=== PATIENT | female | born 1940 | race Caucasian/White ===

== ENCOUNTER → 2017-11-09 12:58 | Outpatient (CLI) | payer MEDICARE, OTHER, SELFPAY ==
[2017-11-09 14:55] LABS: Add Manual Diff / Slide Review NO; Basophils Percent Auto 1.4 % (0-2); Eosinophils Percent Auto 2.5 % (2-4); Hematocrit 43.4 % (36-46); Hemoglobin 14.7 g/dL (12.0-16.0); Lymphocytes Percent Auto 27.2 % (25-40); Mean Corpuscular HGB Conc 33.8 % (30-36); Mean Corpuscular Hemoglobin 28.2 PG (26-34); Mean Corpuscular Volume 83.5 fL (80-100); Monocytes Percent Auto 5.3 % (3-14); Neutrophils Absolute Auto 4700 /uL (3000-5900); Neutrophils Percent Auto 63.6 % (50-75); Platelet Count 210 X10^3/uL (150-400); White Blood Cell Count 7.3 X10^3/uL (4.5-11.0)
[2017-11-09 15:22] LABS: Carbon Dioxide 29 mmol/L (22-32); Chloride 100 mmol/L (98-107); HEMOLYSIS < 15 (0-50); Potassium 4.4 mmol/L (3.4-5.1); Sodium 141 mmol/L (137-145)
== END ==
PROVIDERS: Visit Provider Orthopaedic Surgery
DX: Z01.812 Encounter for preprocedural laboratory examination (principal); Z01.818 Encounter for other preprocedural examination
CPT/HCPCS: 36415; 80051; 85025; 93005; 93010

== ENCOUNTER 2017-12-15 13:45 | Outpatient (RCR) | payer MEDICARE, OTHER, SELFPAY ==
--- NOTE | 2017-11-18 09:45 | PT.OIE ---
Current Diagnoses Cervical root disorders, not elsewhere classified (11/18/17) Stiffness of unspecified joint, not elsewhere classified (11/18/17) Paresthesia of skin (11/18/17) Strain of other muscles, fascia and tendons at shoulder and upper arm level, right arm, subsequent encounter (11/18/17) Past Medical History (Last Reviewed 11/06/17 @ 17:22 by Radha Dobbins DNP, SKYLAR, SHEILA-C) Trapezius muscle strain (Acute) Neuralgia (Acute) Knee pain (Chronic) Hypertension (Chronic) Hypothyroidism (Chronic) Hypoventilation syndrome (Chronic 2018) Osteoarthritis (Chronic) Past Surgical History (Last Reviewed 11/06/17 @ 17:22 by Radha Dobbins DNP, SKYLAR, SHEILA-C) History of left knee surgery (Resolved) Provider Visit Care Team Role Provider Type Andry Ferguson MD Family Provider Physician Primary Care Provider Specialty: [facility] Address: [address] [place] [address] Email: Radha Dobbins DNP, SKYLAR, SHEILA-C Attending Provider Advanced Rice Dryer Mechanic Specialty: [facility] Address: [address] [place] [address] Email: Physical Therapy Initial Evaluation PT-OP-A Visit Information Start: 11/19/17 15:30 Freq: Status: Active Protocol: Document 11/18/17 09:45 DCW (Rec: 11/19/17 16:00 [facility] [id number]) Out-Patient Physical Therapy Visit Information Visit Information Visit Type Initial Evaluation Visit Start Time 09:45 Visit Stop Time 10:30 Total Visit Minutes 45 Visit Number 1 Number of FINANCIAL COMPLIANCE OFFICER Visits 0 Evaluation Information Evaluation Date 11/18/17 PT-OP-B Current Condition Start: 11/19/17 15:30 Freq: Status: Active Protocol: Document 11/18/17 09:45 DCW (Rec: 11/19/17 16:00 DC [id number]) Current Condition History of Current Condition Onset Date Two months Current Complaints Right shoulder numbness/pain History of Current Condition Pt is a 77 year old female presenting with a two month history of right shoulder pain and numbness. Pt reports she cannot remember any initial injury, she just began to notice her shoulder starting to go numb. Pt reports she feels her best at the beginning of the day, but as the day goes on, her trap tightens up, which increases her sensation of pain and numbness. Pt does note a prior rotator cuff tear and repair in 2003, but admits that this is a completely different pain, and I don't think that has anything to do with my current pain. Pt also notes that if she sleeps on her affected side, she feels fine, but if she sleeps on her unaffected side, she wakes up with numbness and pain. Prior Treatments and Tests Prior rotator cuff repair Treatment Goals Patient/Caregiver Goals Pt reports her goal is to decrease her numbness and shoulder pain. Prior Functional Status Baseline Function- ADL's Independent Baseline Function- Mobility Independent Current Functional Impairments (Reported) Functional Limitations- Recreation/ I do what I need to do, but Hobbies notes some mild difficulty with lifting PT-OP-C Subjective Start: 11/19/17 15:30 Freq: Status: Active Protocol: Document 11/18/17 09:45 DCW (Rec: 11/19/17 16:00 [facility] [id number]) Patient Questionnaires Quick Dash- Upper Extremity Quick Dash UE Score 52.27% Quick Dash UE Impairment 40 to 59% Impaired (Score 40- 59) OP-PT Pain Assessment Pain Assessment Grid Paper Pain Assessment Grid Completed Yes Location Right Shoulder Pain Location Details Superior shoulder Intensity 3 Scale Used Numeric (1 - 10) Description- Other Tingling - It feels like a TENS unit. PT-OP-F Manual Assessment Start: 11/19/17 15:30 Freq: Status: Active Protocol: Document 11/18/17 09:45 DCW (Rec: 11/19/17 16:00 [facility] [id number]) Manual Assessments Soft Tissue Assessment Soft Tissue Mobility Assessment Moderate tone through right upper trap, right scalenes, bilateral paraspinals Joint Mobility Assessment Joint Mobility Assessment Shoulder joint assessment entirely negative, no loss of strength or ROM, however cervical spine displays limited ROM, weakness, and increased symptoms with compression PT-OP-J Posture/Palpation/Skin Start: 11/19/17 15:30 Freq: Status: Active Protocol: Document 11/18/17 09:45 DCW (Rec: 11/19/17 16:00 DCW [id number]) Posture Evaluation Position Sitting Head/C-Spine Posture Forward Head Shoulder Posture (L) Rounded (R) Rounded Comments Posture Comments Mild forward head/rounded shoulders Palpation Assessment Location Three Palpation Location Bilateral scervical paraspinals Palpation Findings Soft Tissue Tightness Spasm Tenderness Two Palpation Location Right Scalenes Palpation Findings Soft Tissue Tightness Spasm Tenderness One Palpation Location Right Upper Trap Palpation Findings Soft Tissue Tightness Spasm Tenderness PT-OP-K Range of Motion Start: 11/19/17 15:30 Freq: Status: Active Protocol: Document 11/18/17 09:45 DCW (Rec: 11/19/17 16:00 DCW [id number]) Cervical Spine Range of Motion Cervical Spine Active Degrees Testing Position Sitting Flexion 65 Extension 40 Rotation Left 60 Rotation Right 70 Lateral Flexion Left 35 Lateral Flexion Right 32 ROM Limitations Bony Restriction Pain Comments Right rotation causes increased tingling, hurts all the way to my shoulder. Extension causes pulling and tightness. Shoulder Goniometric Range of Motion Shoulder Measured in Degrees Right Active Shoulder ROM WFL Yes PT-OP-L Special Tests Start: 11/19/17 15:30 Freq: Status: Active Protocol: Document 11/18/17 09:45 DCW (Rec: 11/19/17 16:00 DCW [id number]) Special Tests Cervical Spine Special Tests Other- 1 Test Results Compression with R rotation - increased symptoms Alar Ligament Test Results Negative Traction Test Results Relieves symptoms Slump Test Results Negative Foraminal Compression Test Results Increased symptoms Shoulder Special Tests Lift-Off Rotator Cuff Test Results Negative Empty Can Test Results Negative Belly Press Test Results Negative Drop Arm Rotator Cuff Test Results Negative PT-OP-Q Treatments Start: 11/19/17 15:30 Freq: Status: Active Protocol: Document 11/18/17 09:45 DCW (Rec: 11/19/17 16:00 DCW [id number]) Therapeutic Exercises Sitting Exercises 1 Sitting Exercise Name Upper Trap stretch Side right PT-OP-T Assessment and Plan Start: 11/19/17 15:30 Freq: Status: Active Protocol: Document 11/18/17 09:45 DCW (Rec: 11/19/17 16:00 DCW [id number]) Physical Therapy Assessment Rehab Potential Rehabilitation Potential Excellent Evaluation Complexity Number of Personal Factors/Comorbidities 1-2 Number of Body Systems Impaired 3 Clinical Presentation at Evaluation Stable Impairments Impairments Pain Posture ROM Soft Tissue Mobility Strength Tone Goals Four Impairment Muscle tone Alf Goal (LTG) Pt to exhibit mild tone in right upper trap, right scalenes, and bilateral cervical paraspinals LTG Duration 01/18/18 Three Impairment Sleep disturbance Short Term Goal (STG) Pt to sleep on unaffected side with no increased symptoms STG Duration 12/19/17 Two Impairment Limited cervical ROM, which causes increased symptoms in ext and R rot Short Term Goal (STG) Pain-free cervical ROM STG Duration 12/19/17 One Impairment Pt does not have an appropriate home exercise program Short Term Goal (STG) Pt to be independent and compliant with HEP STG Duration 12/19/17 Assessment Summary Assessment Pt presents with signs and symptoms of pain and numbness along her C4 dermatome pattern , consistent with a cervical impingement of C4. Pt's shoulder examination is negative, but pt reports increased symptoms with cervical compression, rotation , and extension, and relief with cervical traction. Pt should benefit from skilled therapy focusing on decreased muscle tone, improved cervical ROM, cervical traction, and cervical strengthening. Physical Therapy Plan Frequency and Duration Frequency of Treatment 2x/Week Duration of Treatment 10 weeks Plan of Care Start Date 11/18/17 Plan of Care End Date 01/27/18 Therapeutic Interventions Therapeutic Interventions Aquatic Therapy Home Exercise Program Joint Mobilizations Manual Therapy Patient/Caregiver Education Self-Care/Home Management Soft Tissue Mobilization Therapeutic Activities Therapeutic Exercises Modalities Cold Pack/Ice Massage Electric Stimulation Hot Packs Traction- Mechanical Ultrasound Next Visit Focus/Plan Next Note Type Treatment Note Next Visit Plan STM, Cervical traction, cervical strengthening
--- NOTE | 2017-11-18 09:45 | PT.OPPOC ---
Current Diagnoses Cervical root disorders, not elsewhere classified (11/18/17) Stiffness of unspecified joint, not elsewhere classified (11/18/17) Paresthesia of skin (11/18/17) Strain of other muscles, fascia and tendons at shoulder and upper arm level, right arm, subsequent encounter (11/18/17) Provider Visit Care Team Role Provider Type Andry Ferguson MD Family Provider Physician Primary Care Provider Specialty: [facility] Address: [address] [place] [address], [place], [address] Email: Radha Dobbins DNP, ANP, REPAIRER MAINTENANCE BUILDING-C Attending Provider Advanced Loader [employer] Dies Specialty: [facility] Address: [address] [place] [address], [id number] Email: Plan Of Care PT-OP-T Assessment and Plan Start: 11/19/17 15:30 Freq: Status: Active Protocol: Document 11/18/17 09:45 DCW (Rec: 11/19/17 16:00 DCW [id number]) Physical Therapy Assessment Rehab Potential Rehabilitation Potential Excellent Evaluation Complexity Number of Personal Factors/Comorbidities 1-2 Number of Body Systems Impaired 3 Clinical Presentation at Evaluation Stable Impairments Impairments Pain Posture ROM Soft Tissue Mobility Strength Tone Goals Four Impairment Muscle tone Detention Goal (LTG) Pt to exhibit mild tone in right upper trap, right scalenes, and bilateral cervical paraspinals LTG Duration 01/18/18 Three Impairment Sleep disturbance Short Term Goal (STG) Pt to sleep on unaffected side with no increased symptoms STG Duration 12/19/17 Two Impairment Limited cervical ROM, which causes increased symptoms in ext and R rot Short Term Goal (STG) Pain-free cervical ROM STG Duration 12/19/17 One Impairment Pt does not have an appropriate home exercise program Short Term Goal (STG) Pt to be independent and compliant with HEP STG Duration 12/19/17 Assessment Summary Assessment Pt presents with signs and symptoms of pain and numbness along her C4 dermatome pattern , consistent with a cervical impingement of C4. Pt's shoulder examination is negative, but pt reports increased symptoms with cervical compression, rotation , and extension, and relief with cervical traction. Pt should benefit from skilled therapy focusing on decreased muscle tone, improved cervical ROM, cervical traction, and cervical strengthening. Physical Therapy Plan Frequency and Duration Frequency of Treatment 2x/Week Duration of Treatment 10 weeks Plan of Care Start Date 11/18/17 Plan of Care End Date 01/27/18 Therapeutic Interventions Therapeutic Interventions Aquatic Therapy Home Exercise Program Joint Mobilizations Manual Therapy Patient/Caregiver Education Self-Care/Home Management Soft Tissue Mobilization Therapeutic Activities Therapeutic Exercises Modalities Cold Pack/Ice Massage Electric Stimulation Hot Packs Traction- Mechanical Ultrasound Next Visit Focus/Plan Next Note Type Treatment Note Next Visit Plan STM, Cervical traction, cervical strengthening Plan of Care Dates Plan of Care Start Date 11/18/17 Plan of Care End Date 01/27/18 Please Sign and Return: I have reviewed this Plan of Care and certify that the skilled therapy services above are required to meet the patient?s needs. Physician Signature Date Printed Name and Credentials Clinical Instructor Signature Printed Name and Credentials
--- NOTE | 2017-11-19 16:00 | PT.OIE ---
Current Diagnoses Cervical root disorders, not elsewhere classified (11/18/17) Stiffness of unspecified joint, not elsewhere classified (11/18/17) Paresthesia of skin (11/18/17) Strain of other muscles, fascia and tendons at shoulder and upper arm level, right arm, subsequent encounter (11/18/17) Past Medical History (Last Reviewed 11/06/17 @ 17:22 by Radha Dobbins DNP, SKYLAR, SHEILA-C) Trapezius muscle strain (Acute) Neuralgia (Acute) Knee pain (Chronic) Hypertension (Chronic) Hypothyroidism (Chronic) Hypoventilation syndrome (Chronic 2018) Osteoarthritis (Chronic) Past Surgical History (Last Reviewed 11/06/17 @ 17:22 by Radha Dobbins DNP, SKYLAR, SHEILA-C) History of left knee surgery (Resolved) Provider Visit Care Team Role Provider Type Andry Ferguson MD Family Provider Physician Primary Care Provider Specialty: [facility] Address: [address] [place] [address] Email: Radha Dobbins DNP, SKYLAR, SHEILA-C Attending Provider Advanced Cement Conveyor Operator Specialty: [facility] Address: [address] [place] [address] Email: Physical Therapy Initial Evaluation PT-OP-A Visit Information Start: 11/19/17 15:30 Freq: Status: Active Protocol: Document 11/18/17 09:45 DCW (Rec: 11/19/17 16:00 [facility] [id number]) Out-Patient Physical Therapy Visit Information Visit Information Visit Type Initial Evaluation Visit Start Time 09:45 Visit Stop Time 10:30 Total Visit Minutes 45 Visit Number 1 Number of BUTANE COMPRESSOR OPERATOR Visits 0 Evaluation Information Evaluation Date 11/18/17 PT-OP-B Current Condition Start: 11/19/17 15:30 Freq: Status: Active Protocol: Document 11/18/17 09:45 DCW (Rec: 11/19/17 16:00 DC [id number]) Current Condition History of Current Condition Onset Date Two months Current Complaints Right shoulder numbness/pain History of Current Condition Pt is a 77 year old female presenting with a two month history of right shoulder pain and numbness. Pt reports she cannot remember any initial injury, she just began to notice her shoulder starting to go numb. Pt reports she feels her best at the beginning of the day, but as the day goes on, her trap tightens up, which increases her sensation of pain and numbness. Pt does note a prior rotator cuff tear and repair in 2003, but admits that this is a completely different pain, and I don't think that has anything to do with my current pain. Pt also notes that if she sleeps on her affected side, she feels fine, but if she sleeps on her unaffected side, she wakes up with numbness and pain. Prior Treatments and Tests Prior rotator cuff repair Treatment Goals Patient/Caregiver Goals Pt reports her goal is to decrease her numbness and shoulder pain. Prior Functional Status Baseline Function- ADL's Independent Baseline Function- Mobility Independent Current Functional Impairments (Reported) Functional Limitations- Recreation/ I do what I need to do, but Hobbies notes some mild difficulty with lifting PT-OP-C Subjective Start: 11/19/17 15:30 Freq: Status: Active Protocol: Document 11/18/17 09:45 DCW (Rec: 11/19/17 16:00 [facility] [id number]) Patient Questionnaires Quick Dash- Upper Extremity Quick Dash UE Score 52.27% Quick Dash UE Impairment 40 to 59% Impaired (Score 40- 59) OP-PT Pain Assessment Pain Assessment Grid Paper Pain Assessment Grid Completed Yes Location Right Shoulder Pain Location Details Superior shoulder Intensity 3 Scale Used Numeric (1 - 10) Description- Other Tingling - It feels like a TENS unit. PT-OP-F Manual Assessment Start: 11/19/17 15:30 Freq: Status: Active Protocol: Document 11/18/17 09:45 DCW (Rec: 11/19/17 16:00 [facility] [id number]) Manual Assessments Soft Tissue Assessment Soft Tissue Mobility Assessment Moderate tone through right upper trap, right scalenes, bilateral paraspinals Joint Mobility Assessment Joint Mobility Assessment Shoulder joint assessment entirely negative, no loss of strength or ROM, however cervical spine displays limited ROM, weakness, and increased symptoms with compression PT-OP-J Posture/Palpation/Skin Start: 11/19/17 15:30 Freq: Status: Active Protocol: Document 11/18/17 09:45 DCW (Rec: 11/19/17 16:00 DCW [id number]) Posture Evaluation Position Sitting Head/C-Spine Posture Forward Head Shoulder Posture (L) Rounded (R) Rounded Comments Posture Comments Mild forward head/rounded shoulders Palpation Assessment Location Three Palpation Location Bilateral scervical paraspinals Palpation Findings Soft Tissue Tightness Spasm Tenderness Two Palpation Location Right Scalenes Palpation Findings Soft Tissue Tightness Spasm Tenderness One Palpation Location Right Upper Trap Palpation Findings Soft Tissue Tightness Spasm Tenderness PT-OP-K Range of Motion Start: 11/19/17 15:30 Freq: Status: Active Protocol: Document 11/18/17 09:45 DCW (Rec: 11/19/17 16:00 DCW [id number]) Cervical Spine Range of Motion Cervical Spine Active Degrees Testing Position Sitting Flexion 65 Extension 40 Rotation Left 60 Rotation Right 70 Lateral Flexion Left 35 Lateral Flexion Right 32 ROM Limitations Bony Restriction Pain Comments Right rotation causes increased tingling, hurts all the way to my shoulder. Extension causes pulling and tightness. Shoulder Goniometric Range of Motion Shoulder Measured in Degrees Right Active Shoulder ROM WFL Yes PT-OP-L Special Tests Start: 11/19/17 15:30 Freq: Status: Active Protocol: Document 11/18/17 09:45 DCW (Rec: 11/19/17 16:00 DCW [id number]) Special Tests Cervical Spine Special Tests Other- 1 Test Results Compression with R rotation - increased symptoms Alar Ligament Test Results Negative Traction Test Results Relieves symptoms Slump Test Results Negative Foraminal Compression Test Results Increased symptoms Shoulder Special Tests Lift-Off Rotator Cuff Test Results Negative Empty Can Test Results Negative Belly Press Test Results Negative Drop Arm Rotator Cuff Test Results Negative PT-OP-Q Treatments Start: 11/19/17 15:30 Freq: Status: Active Protocol: Document 11/18/17 09:45 DCW (Rec: 11/19/17 16:00 DCW [id number]) Therapeutic Exercises Sitting Exercises 1 Sitting Exercise Name Upper Trap stretch Side right PT-OP-T Assessment and Plan Start: 11/19/17 15:30 Freq: Status: Active Protocol: Document 11/18/17 09:45 DCW (Rec: 11/19/17 16:00 DCW [id number]) Physical Therapy Assessment Rehab Potential Rehabilitation Potential Excellent Evaluation Complexity Number of Personal Factors/Comorbidities 1-2 Number of Body Systems Impaired 3 Clinical Presentation at Evaluation Stable Impairments Impairments Pain Posture ROM Soft Tissue Mobility Strength Tone Goals Four Impairment Muscle tone Correction Goal (LTG) Pt to exhibit mild tone in right upper trap, right scalenes, and bilateral cervical paraspinals LTG Duration 01/18/18 Three Impairment Sleep disturbance Short Term Goal (STG) Pt to sleep on unaffected side with no increased symptoms STG Duration 12/19/17 Two Impairment Limited cervical ROM, which causes increased symptoms in ext and R rot Short Term Goal (STG) Pain-free cervical ROM STG Duration 12/19/17 One Impairment Pt does not have an appropriate home exercise program Short Term Goal (STG) Pt to be independent and compliant with HEP STG Duration 12/19/17 Assessment Summary Assessment Pt presents with signs and symptoms of pain and numbness along her C4 dermatome pattern , consistent with a cervical impingement of C4. Pt's shoulder examination is negative, but pt reports increased symptoms with cervical compression, rotation , and extension, and relief with cervical traction. Pt should benefit from skilled therapy focusing on decreased muscle tone, improved cervical ROM, cervical traction, and cervical strengthening. Physical Therapy Plan Frequency and Duration Frequency of Treatment 2x/Week Duration of Treatment 10 weeks Plan of Care Start Date 11/18/17 Plan of Care End Date 01/27/18 Therapeutic Interventions Therapeutic Interventions Aquatic Therapy Home Exercise Program Joint Mobilizations Manual Therapy Patient/Caregiver Education Self-Care/Home Management Soft Tissue Mobilization Therapeutic Activities Therapeutic Exercises Modalities Cold Pack/Ice Massage Electric Stimulation Hot Packs Traction- Mechanical Ultrasound Next Visit Focus/Plan Next Note Type Treatment Note Next Visit Plan STM, Cervical traction, cervical strengthening
--- NOTE | 2017-11-24 14:40 | PT.OTN ---
Current Diagnoses Strain of other muscles, fascia and tendons at shoulder and upper arm level, right arm, initial encounter (11/24/17) Physical Therapy Treatment Note PT-OP-A Visit Information Start: 11/19/17 15:30 Freq: Status: Active Protocol: Document 11/24/17 12:00 DCW (Rec: 11/24/17 14:40 DC [id number]) Out-Patient Physical Therapy Visit Information Visit Information Visit Type Treatment Note Visit Start Time 12:00 Visit Stop Time 12:45 Total Visit Minutes 45 Visit Number 2 Evaluation Information Evaluation Date 11/18/17 PT-OP-B Current Condition Start: 11/19/17 15:30 Freq: Status: Active Protocol: Document 11/18/17 09:45 DCW (Rec: 11/19/17 16:00 DCW [id number]) Current Condition History of Current Condition Onset Date Two months Current Complaints Right shoulder numbness/pain History of Current Condition Pt is a 77 year old female presenting with a two month history of right shoulder pain and numbness. Pt reports she cannot remember any initial injury, she just began to notice her shoulder starting to go numb. Pt reports she feels her best at the beginning of the day, but as the day goes on, her trap tightens up, which increases her sensation of pain and numbness. Pt does note a prior rotator cuff tear and repair in 2003, but admits that this is a completely different pain, and I don't think that has anything to do with my current pain. Pt also notes that if she sleeps on her affected side, she feels fine, but if she sleeps on her unaffected side, she wakes up with numbness and pain. Prior Treatments and Tests Prior rotator cuff repair Treatment Goals Patient/Caregiver Goals Pt reports her goal is to decrease her numbness and shoulder pain. Prior Functional Status Baseline Function- ADL's Independent Baseline Function- Mobility Independent Current Functional Impairments (Reported) Functional Limitations- Recreation/ I do what I need to do, but Hobbies notes some mild difficulty with lifting PT-OP-C Subjective Start: 11/19/17 15:30 Freq: Status: Active Protocol: Document 11/24/17 12:00 DCW (Rec: 11/24/17 14:40 DCW [id number]) OP-PT Subjective Patient Comments Patient Comments I've been doing the stretching, and I think it's helping. PT-OP-F Manual Assessment Start: 11/19/17 15:30 Freq: Status: Active Protocol: Document 11/18/17 09:45 DCW (Rec: 11/19/17 16:00 DCW [id number]) Manual Assessments Soft Tissue Assessment Soft Tissue Mobility Assessment Moderate tone through right upper trap, right scalenes, bilateral paraspinals Joint Mobility Assessment Joint Mobility Assessment Shoulder joint assessment entirely negative, no loss of strength or ROM, however cervical spine displays limited ROM, weakness, and increased symptoms with compression PT-OP-J Posture/Palpation/Skin Start: 11/19/17 15:30 Freq: Status: Active Protocol: Document 11/18/17 09:45 DCW (Rec: 11/19/17 16:00 DCW [id number]) Posture Evaluation Position Sitting Head/C-Spine Posture Forward Head Shoulder Posture (L) Rounded (R) Rounded Comments Posture Comments Mild forward head/rounded shoulders Palpation Assessment Location Three Palpation Location Bilateral scervical paraspinals Palpation Findings Soft Tissue Tightness Spasm Tenderness Two Palpation Location Right Scalenes Palpation Findings Soft Tissue Tightness Spasm Tenderness One Palpation Location Right Upper Trap Palpation Findings Soft Tissue Tightness Spasm Tenderness PT-OP-K Range of Motion Start: 11/19/17 15:30 Freq: Status: Active Protocol: Document 11/18/17 09:45 DCW (Rec: 11/19/17 16:00 DCW [id number]) Cervical Spine Range of Motion Cervical Spine Active Degrees Testing Position Sitting Flexion 65 Extension 40 Rotation Left 60 Rotation Right 70 Lateral Flexion Left 35 Lateral Flexion Right 32 ROM Limitations Bony Restriction Pain Comments Right rotation causes increased tingling, hurts all the way to my shoulder. Extension causes pulling and tightness. Shoulder Goniometric Range of Motion Shoulder Measured in Degrees Right Active Shoulder ROM WFL Yes PT-OP-L Special Tests Start: 11/19/17 15:30 Freq: Status: Active Protocol: Document 11/18/17 09:45 DCW (Rec: 11/19/17 16:00 DCW [id number]) Special Tests Cervical Spine Special Tests Other- 1 Test Results Compression with R rotation - increased symptoms Alar Ligament Test Results Negative Traction Test Results Relieves symptoms Slump Test Results Negative Foraminal Compression Test Results Increased symptoms Shoulder Special Tests Lift-Off Rotator Cuff Test Results Negative Empty Can Test Results Negative Belly Press Test Results Negative Drop Arm Rotator Cuff Test Results Negative PT-OP-Q Treatments Start: 11/19/17 15:30 Freq: Status: Active Protocol: Document 11/24/17 12:00 DCW (Rec: 11/24/17 14:40 [facility] [id number]) Therapeutic Exercises Supine Exercises 1 Supine Exercise Name Scalene stretch Side right Resistance Passive Sitting Exercises 1 Sitting Exercise Name Upper Trap stretch Side right Manual Therapy Treatment Soft Tissue Mobilization 3 Body Location Suboccipitals Mobilization Type Sustained Pressure Intensity/Depth Superficial Body Position Hooklying 2 Body Location Scalenes Mobilization Type Sustained Pressure Trigger Point Release Intensity/Depth Moderate Body Position Hooklying 1 Body Location Upper Trap Mobilization Type Myofascial Release Strain/Counterstrain Strumming Sustained Pressure Trigger Point Release Intensity/Depth Moderate Body Position Hooklying Manual Traction Cervical Body Position Supine PT-OP-R Modalities Start: 11/19/17 15:30 Freq: Status: Active Protocol: Document 11/24/17 12:00 DCW (Rec: 11/24/17 14:40 [facility] [id number]) Spinal Traction Traction Treatment Cervical Method Mechanical Static Patient Position Hooklying Force Applied (Pounds) 20 Duration of Treatment (Minutes) 10 Traction Treatment Comment Pain decreased from 6/10 to a 0.5/10 PT-OP-T Assessment and Plan Start: 11/19/17 15:30 Freq: Status: Active Protocol: Document 11/24/17 12:00 DCW (Rec: 11/24/17 14:40 [facility] [id number]) Physical Therapy Assessment Impairments Impairments Pain Posture ROM Soft Tissue Mobility Strength Tone Goals Four Impairment Muscle tone Manager Ethics Goal (LTG) Pt to exhibit mild tone in right upper trap, right scalenes, and bilateral cervical paraspinals LTG Duration 01/18/18 Three Impairment Sleep disturbance Short Term Goal (STG) Pt to sleep on unaffected side with no increased symptoms STG Duration 12/19/17 Two Impairment Limited cervical ROM, which causes increased symptoms in ext and R rot Short Term Goal (STG) Pain-free cervical ROM STG Duration 12/19/17 One Impairment Pt does not have an appropriate home exercise program Short Term Goal (STG) Pt to be independent and compliant with HEP STG Duration 12/19/17 Assessment Summary Assessment Pt tolerated mechanical traction very well, felt much better upon sitting up following her appointment. Continued improvement with use may indicate pt is a good candidate for a home traction unit. Physical Therapy Plan Frequency and Duration Frequency of Treatment 2x/Week Duration of Treatment 10 weeks Plan of Care Start Date 11/18/17 Plan of Care End Date 01/27/18 Therapeutic Interventions Therapeutic Interventions Aquatic Therapy Home Exercise Program Joint Mobilizations Manual Therapy Patient/Caregiver Education Self-Care/Home Management Soft Tissue Mobilization Therapeutic Activities Therapeutic Exercises Modalities Cold Pack/Ice Massage Electric Stimulation Hot Packs Traction- Mechanical Ultrasound Other Referrals/Consults Referrals/Consults Recommended Possible referral for cervical traction Next Visit Focus/Plan Next Note Type Treatment Note Next Visit Plan STM, Cervical traction, cervical strengthening
--- NOTE | 2017-11-27 12:37 | PT.OTN ---
Current Diagnoses Strain of other muscles, fascia and tendons at shoulder and upper arm level, right arm, initial encounter (11/27/17) Physical Therapy Treatment Note PT-OP-A Visit Information Start: 11/19/17 15:30 Freq: Status: Active Protocol: Document 11/27/17 12:10 DCW (Rec: 11/27/17 12:36 DCW [id number]) Out-Patient Physical Therapy Visit Information Visit Information Visit Type Treatment Note Visit Note Pt arrived 10 minutes late Visit Start Time 12:10 Visit Stop Time 12:45 Total Visit Minutes 35 Visit Number 3 Evaluation Information Evaluation Date 11/18/17 PT-OP-B Current Condition Start: 11/19/17 15:30 Freq: Status: Active Protocol: Document 11/18/17 09:45 DCW (Rec: 11/19/17 16:00 DCW [id number]) Current Condition History of Current Condition Onset Date Two months Current Complaints Right shoulder numbness/pain History of Current Condition Pt is a 77 year old female presenting with a two month history of right shoulder pain and numbness. Pt reports she cannot remember any initial injury, she just began to notice her shoulder starting to go numb. Pt reports she feels her best at the beginning of the day, but as the day goes on, her trap tightens up, which increases her sensation of pain and numbness. Pt does note a prior rotator cuff tear and repair in 2003, but admits that this is a completely different pain, and I don't think that has anything to do with my current pain. Pt also notes that if she sleeps on her affected side, she feels fine, but if she sleeps on her unaffected side, she wakes up with numbness and pain. Prior Treatments and Tests Prior rotator cuff repair Treatment Goals Patient/Caregiver Goals Pt reports her goal is to decrease her numbness and shoulder pain. Prior Functional Status Baseline Function- ADL's Independent Baseline Function- Mobility Independent Current Functional Impairments (Reported) Functional Limitations- Recreation/ I do what I need to do, but Hobbies notes some mild difficulty with lifting PT-OP-C Subjective Start: 11/19/17 15:30 Freq: Status: Active Protocol: Document 11/27/17 12:10 DCW (Rec: 11/27/17 12:36 DCW [id number]) OP-PT Subjective Patient Comments Patient Comments I think my neck is better. I didn't wake up with pain, and I haven't had as much tingling recently. PT-OP-F Manual Assessment Start: 11/19/17 15:30 Freq: Status: Active Protocol: Document 11/18/17 09:45 DCW (Rec: 11/19/17 16:00 DCW [id number]) Manual Assessments Soft Tissue Assessment Soft Tissue Mobility Assessment Moderate tone through right upper trap, right scalenes, bilateral paraspinals Joint Mobility Assessment Joint Mobility Assessment Shoulder joint assessment entirely negative, no loss of strength or ROM, however cervical spine displays limited ROM, weakness, and increased symptoms with compression PT-OP-J Posture/Palpation/Skin Start: 11/19/17 15:30 Freq: Status: Active Protocol: Document 11/18/17 09:45 DCW (Rec: 11/19/17 16:00 DCW [id number]) Posture Evaluation Position Sitting Head/C-Spine Posture Forward Head Shoulder Posture (L) Rounded (R) Rounded Comments Posture Comments Mild forward head/rounded shoulders Palpation Assessment Location Three Palpation Location Bilateral scervical paraspinals Palpation Findings Soft Tissue Tightness Spasm Tenderness Two Palpation Location Right Scalenes Palpation Findings Soft Tissue Tightness Spasm Tenderness One Palpation Location Right Upper Trap Palpation Findings Soft Tissue Tightness Spasm Tenderness PT-OP-K Range of Motion Start: 11/19/17 15:30 Freq: Status: Active Protocol: Document 11/18/17 09:45 DCW (Rec: 11/19/17 16:00 DCW [id number]) Cervical Spine Range of Motion Cervical Spine Active Degrees Testing Position Sitting Flexion 65 Extension 40 Rotation Left 60 Rotation Right 70 Lateral Flexion Left 35 Lateral Flexion Right 32 ROM Limitations Bony Restriction Pain Comments Right rotation causes increased tingling, hurts all the way to my shoulder. Extension causes pulling and tightness. Shoulder Goniometric Range of Motion Shoulder Measured in Degrees Right Active Shoulder ROM WFL Yes PT-OP-L Special Tests Start: 11/19/17 15:30 Freq: Status: Active Protocol: Document 11/18/17 09:45 DCW (Rec: 11/19/17 16:00 DCW [id number]) Special Tests Cervical Spine Special Tests Other- 1 Test Results Compression with R rotation - increased symptoms Alar Ligament Test Results Negative Traction Test Results Relieves symptoms Slump Test Results Negative Foraminal Compression Test Results Increased symptoms Shoulder Special Tests Lift-Off Rotator Cuff Test Results Negative Empty Can Test Results Negative Belly Press Test Results Negative Drop Arm Rotator Cuff Test Results Negative PT-OP-Q Treatments Start: 11/19/17 15:30 Freq: Status: Active Protocol: Document 11/27/17 12:10 DCW (Rec: 11/27/17 12:36 DCW [id number]) Manual Therapy Treatment Soft Tissue Mobilization 3 Body Location Suboccipitals Mobilization Type Sustained Pressure Intensity/Depth Superficial Body Position Hooklying 2 Body Location Scalenes Mobilization Type Sustained Pressure Trigger Point Release Intensity/Depth Moderate Body Position Hooklying 1 Body Location Upper Trap Mobilization Type Myofascial Release Strain/Counterstrain Strumming Sustained Pressure Trigger Point Release Intensity/Depth Moderate Body Position Hooklying Manual Traction Cervical Body Position Supine PT-OP-R Modalities Start: 11/19/17 15:30 Freq: Status: Active Protocol: Document 11/27/17 12:10 DCW (Rec: 11/27/17 12:36 DCW [id number]) Spinal Traction Traction Treatment Cervical Method Mechanical Static Patient Position Hooklying Force Applied (Pounds) 20 Duration of Treatment (Minutes) 10 PT-OP-T Assessment and Plan Start: 11/19/17 15:30 Freq: Status: Active Protocol: Document 11/27/17 12:10 DCW (Rec: 11/27/17 12:36 DCW [id number]) Physical Therapy Assessment Impairments Impairments Pain Posture ROM Soft Tissue Mobility Strength Tone Goals Four Impairment 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) Pt to exhibit mild tone in right upper trap, right scalenes, and bilateral cervical paraspinals LTG Duration 01/18/18 Three Impairment Sleep disturbance Short Term Goal (STG) Pt to sleep on unaffected side with no increased symptoms STG Duration 12/19/17 Two Impairment Limited cervical ROM, which causes increased symptoms in ext and R rot Short Term Goal (STG) Pain-free cervical ROM STG Duration 12/19/17 One Impairment Pt does not have an appropriate home exercise program Short Term Goal (STG) Pt to be independent and compliant with HEP STG Duration 12/19/17 Assessment Summary Assessment Pt making great progress so far, much reduced pain and radicular symptoms Physical Therapy Plan Frequency and Duration Frequency of Treatment 2x/Week Duration of Treatment 10 weeks Plan of Care Start Date 11/18/17 Plan of Care End Date 01/27/18 Therapeutic Interventions Therapeutic Interventions Aquatic Therapy Home Exercise Program Joint Mobilizations Manual Therapy Patient/Caregiver Education Self-Care/Home Management Soft Tissue Mobilization Therapeutic Activities Therapeutic Exercises Modalities Cold Pack/Ice Massage Electric Stimulation Hot Packs Traction- Mechanical Ultrasound Other Referrals/Consults Referrals/Consults Recommended Possible referral for cervical traction Next Visit Focus/Plan Next Note Type Treatment Note Next Visit Plan STM, Cervical traction, cervical strengthening
--- NOTE | 2017-12-01 12:34 | PT.OTN ---
Current Diagnoses Strain of other muscles, fascia and tendons at shoulder and upper arm level, right arm, initial encounter (12/01/17) Physical Therapy Treatment Note PT-OP-A Visit Information Start: 11/19/17 15:30 Freq: Status: Active Protocol: Document 12/01/17 12:00 DCW (Rec: 12/01/17 12:34 DCW [id number]) Out-Patient Physical Therapy Visit Information Visit Information Visit Type Treatment Note Visit Start Time 12:00 Visit Stop Time 12:45 Total Visit Minutes 45 Visit Number 4 Evaluation Information Evaluation Date 11/18/17 PT-OP-B Current Condition Start: 11/19/17 15:30 Freq: Status: Active Protocol: Document 11/18/17 09:45 DCW (Rec: 11/19/17 16:00 DCW [id number]) Current Condition History of Current Condition Onset Date Two months Current Complaints Right shoulder numbness/pain History of Current Condition Pt is a 77 year old female presenting with a two month history of right shoulder pain and numbness. Pt reports she cannot remember any initial injury, she just began to notice her shoulder starting to go numb. Pt reports she feels her best at the beginning of the day, but as the day goes on, her trap tightens up, which increases her sensation of pain and numbness. Pt does note a prior rotator cuff tear and repair in 2003, but admits that this is a completely different pain, and I don't think that has anything to do with my current pain. Pt also notes that if she sleeps on her affected side, she feels fine, but if she sleeps on her unaffected side, she wakes up with numbness and pain. Prior Treatments and Tests Prior rotator cuff repair Treatment Goals Patient/Caregiver Goals Pt reports her goal is to decrease her numbness and shoulder pain. Prior Functional Status Baseline Function- ADL's Independent Baseline Function- Mobility Independent Current Functional Impairments (Reported) Functional Limitations- Recreation/ I do what I need to do, but Hobbies notes some mild difficulty with lifting PT-OP-C Subjective Start: 11/19/17 15:30 Freq: Status: Active Protocol: Document 12/01/17 12:00 DCW (Rec: 12/01/17 12:34 DCW [id number]) OP-PT Subjective Patient Comments Patient Comments `My neck pain is getting better, and it's less tight, and the tingling is less frequent. PT-OP-F Manual Assessment Start: 11/19/17 15:30 Freq: Status: Active Protocol: Document 11/18/17 09:45 DCW (Rec: 11/19/17 16:00 DCW [id number]) Manual Assessments Soft Tissue Assessment Soft Tissue Mobility Assessment Moderate tone through right upper trap, right scalenes, bilateral paraspinals Joint Mobility Assessment Joint Mobility Assessment Shoulder joint assessment entirely negative, no loss of strength or ROM, however cervical spine displays limited ROM, weakness, and increased symptoms with compression PT-OP-J Posture/Palpation/Skin Start: 11/19/17 15:30 Freq: Status: Active Protocol: Document 11/18/17 09:45 DCW (Rec: 11/19/17 16:00 DCW [id number]) Posture Evaluation Position Sitting Head/C-Spine Posture Forward Head Shoulder Posture (L) Rounded (R) Rounded Comments Posture Comments Mild forward head/rounded shoulders Palpation Assessment Location Three Palpation Location Bilateral scervical paraspinals Palpation Findings Soft Tissue Tightness Spasm Tenderness Two Palpation Location Right Scalenes Palpation Findings Soft Tissue Tightness Spasm Tenderness One Palpation Location Right Upper Trap Palpation Findings Soft Tissue Tightness Spasm Tenderness PT-OP-K Range of Motion Start: 11/19/17 15:30 Freq: Status: Active Protocol: Document 11/18/17 09:45 DCW (Rec: 11/19/17 16:00 DCW [id number]) Cervical Spine Range of Motion Cervical Spine Active Degrees Testing Position Sitting Flexion 65 Extension 40 Rotation Left 60 Rotation Right 70 Lateral Flexion Left 35 Lateral Flexion Right 32 ROM Limitations Bony Restriction Pain Comments Right rotation causes increased tingling, hurts all the way to my shoulder. Extension causes pulling and tightness. Shoulder Goniometric Range of Motion Shoulder Measured in Degrees Right Active Shoulder ROM WFL Yes PT-OP-L Special Tests Start: 11/19/17 15:30 Freq: Status: Active Protocol: Document 11/18/17 09:45 DCW (Rec: 11/19/17 16:00 DCW [id number]) Special Tests Cervical Spine Special Tests Other- 1 Test Results Compression with R rotation - increased symptoms Alar Ligament Test Results Negative Traction Test Results Relieves symptoms Slump Test Results Negative Foraminal Compression Test Results Increased symptoms Shoulder Special Tests Lift-Off Rotator Cuff Test Results Negative Empty Can Test Results Negative Belly Press Test Results Negative Drop Arm Rotator Cuff Test Results Negative PT-OP-Q Treatments Start: 11/19/17 15:30 Freq: Status: Active Protocol: Document 12/01/17 12:00 DCW (Rec: 12/01/17 12:34 DCW [id number]) Manual Therapy Treatment Soft Tissue Mobilization 3 Body Location Suboccipitals Mobilization Type Sustained Pressure Intensity/Depth Superficial Body Position Hooklying 2 Body Location Scalenes Mobilization Type Sustained Pressure Trigger Point Release Intensity/Depth Moderate Body Position Hooklying 1 Body Location Upper Trap Mobilization Type Myofascial Release Strain/Counterstrain Strumming Sustained Pressure Trigger Point Release Intensity/Depth Moderate Body Position Hooklying Manual Traction Cervical Body Position Supine PT-OP-R Modalities Start: 11/19/17 15:30 Freq: Status: Active Protocol: Document 12/01/17 12:00 DCW (Rec: 12/01/17 12:34 DCW [id number]) Spinal Traction Traction Treatment Cervical Method Mechanical Static Patient Position Hooklying Force Applied (Pounds) 20 Duration of Treatment (Minutes) 10 PT-OP-T Assessment and Plan Start: 11/19/17 15:30 Freq: Status: Active Protocol: Document 12/01/17 12:00 DCW (Rec: 12/01/17 12:34 DCW [id number]) Physical Therapy Assessment Impairments Impairments Pain Posture ROM Soft Tissue Mobility Strength Tone Goals Four Impairment 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) Pt to exhibit mild tone in right upper trap, right scalenes, and bilateral cervical paraspinals LTG Duration 01/18/18 Three Impairment Sleep disturbance Short Term Goal (STG) Pt to sleep on unaffected side with no increased symptoms STG Duration 12/19/17 Two Impairment Limited cervical ROM, which causes increased symptoms in ext and R rot Short Term Goal (STG) Pain-free cervical ROM STG Duration 12/19/17 One Impairment Pt does not have an appropriate home exercise program Short Term Goal (STG) Pt to be independent and compliant with HEP STG Duration 12/19/17 Assessment Summary Assessment Pt continues to report improvement, happy with her current level of progress Physical Therapy Plan Frequency and Duration Frequency of Treatment 2x/Week Duration of Treatment 10 weeks Plan of Care Start Date 11/18/17 Plan of Care End Date 01/27/18 Therapeutic Interventions Therapeutic Interventions Aquatic Therapy Home Exercise Program Joint Mobilizations Manual Therapy Patient/Caregiver Education Self-Care/Home Management Soft Tissue Mobilization Therapeutic Activities Therapeutic Exercises Modalities Cold Pack/Ice Massage Electric Stimulation Hot Packs Traction- Mechanical Ultrasound Other Referrals/Consults Referrals/Consults Recommended Possible referral for cervical traction Next Visit Focus/Plan Next Note Type Treatment Note Next Visit Plan STM, Cervical traction, cervical strengthening
--- NOTE | 2017-12-15 15:19 | PT.OTN ---
Current Diagnoses Strain of other muscles, fascia and tendons at shoulder and upper arm level, right arm, initial encounter (12/15/17) Physical Therapy Treatment Note PT-OP-A Visit Information Start: 11/19/17 15:30 Freq: Status: Active Protocol: Document 12/15/17 14:00 DCW (Rec: 12/15/17 14:31 DCW [id number]) Out-Patient Physical Therapy Visit Information Visit Information Visit Type Discharge Summary Visit Note Arrived 15 min late Visit Start Time 14:00 Visit Stop Time 14:30 Total Visit Minutes 30 Visit Number 5 Evaluation Information Evaluation Date 11/18/17 PT-OP-B Current Condition Start: 11/19/17 15:30 Freq: Status: Active Protocol: Document 11/18/17 09:45 DCW (Rec: 11/19/17 16:00 DCW [id number]) Current Condition History of Current Condition Onset Date Two months Current Complaints Right shoulder numbness/pain History of Current Condition Pt is a 77 year old female presenting with a two month history of right shoulder pain and numbness. Pt reports she cannot remember any initial injury, she just began to notice her shoulder starting to go numb. Pt reports she feels her best at the beginning of the day, but as the day goes on, her trap tightens up, which increases her sensation of pain and numbness. Pt does note a prior rotator cuff tear and repair in 2003, but admits that this is a completely different pain, and I don't think that has anything to do with my current pain. Pt also notes that if she sleeps on her affected side, she feels fine, but if she sleeps on her unaffected side, she wakes up with numbness and pain. Prior Treatments and Tests Prior rotator cuff repair Treatment Goals Patient/Caregiver Goals Pt reports her goal is to decrease her numbness and shoulder pain. Prior Functional Status Baseline Function- ADL's Independent Baseline Function- Mobility Independent Current Functional Impairments (Reported) Functional Limitations- Recreation/ I do what I need to do, but Hobbies notes some mild difficulty with lifting PT-OP-C Subjective Start: 11/19/17 15:30 Freq: Status: Active Protocol: Document 12/15/17 14:00 DCW (Rec: 12/15/17 14:31 DCW [id number]) OP-PT Subjective Patient Comments Patient Comments My neck feels 90% better. PT-OP-F Manual Assessment Start: 11/19/17 15:30 Freq: Status: Active Protocol: Document 12/15/17 14:00 DCW (Rec: 12/15/17 14:34 DCW [id number]) Manual Assessments Soft Tissue Assessment Soft Tissue Mobility Assessment Mild tone through right upper trap, right scalenes, bilateral paraspinals PT-OP-J Posture/Palpation/Skin Start: 11/19/17 15:30 Freq: Status: Active Protocol: Document 12/15/17 14:00 DCW (Rec: 12/15/17 14:34 DCW [id number]) Palpation Assessment Location Three Palpation Location Bilateral cervical paraspinals Palpation Details Mild muscle tone Two Palpation Location Right Scalenes Palpation Details WNL One Palpation Location Right Upper Trap Palpation Details Mild soft tissue tone PT-OP-K Range of Motion Start: 11/19/17 15:30 Freq: Status: Active Protocol: Document 12/15/17 14:00 DCW (Rec: 12/15/17 14:34 DCW [id number]) Cervical Spine Range of Motion Cervical Spine Active Degrees Comments Cervical ROM WNL, pain-free PT-OP-L Special Tests Start: 11/19/17 15:30 Freq: Status: Active Protocol: Document 12/15/17 14:00 DCW (Rec: 12/15/17 14:34 DCW [id number]) Special Tests Cervical Spine Special Tests Other- 1 Test Results Compression with R rotation - negative Foraminal Compression Test Results Negative PT-OP-Q Treatments Start: 11/19/17 15:30 Freq: Status: Active Protocol: Document 12/15/17 14:00 DCW (Rec: 12/15/17 14:31 DCW [id number]) Manual Therapy Treatment Soft Tissue Mobilization 3 Body Location Suboccipitals Mobilization Type Sustained Pressure Intensity/Depth Superficial Body Position Hooklying 2 Body Location Scalenes Mobilization Type Sustained Pressure Trigger Point Release Intensity/Depth Moderate Body Position Hooklying 1 Body Location Upper Trap Mobilization Type Myofascial Release Strain/Counterstrain Strumming Sustained Pressure Trigger Point Release Intensity/Depth Moderate Body Position Hooklying Manual Traction Cervical Body Position Supine PT-OP-T Assessment and Plan Start: 11/19/17 15:30 Freq: Status: Active Protocol: Document 12/15/17 14:00 DCW (Rec: 12/15/17 14:31 DCW [id number]) Physical Therapy Assessment Impairments Impairments Pain Posture ROM Soft Tissue Mobility Strength Tone Goals Four Impairment Muscle tone Senior Care Goal (LTG) Pt to exhibit mild tone in right upper trap, right scalenes, and bilateral cervical paraspinals LTG Duration Met Three Impairment Sleep disturbance Short Term Goal (STG) Pt to sleep on unaffected side with no increased symptoms STG Duration Met Two Impairment Limited cervical ROM, which causes increased symptoms in ext and R rot Short Term Goal (STG) Pain-free cervical ROM STG Duration Met One Impairment Pt does not have an appropriate home exercise program Short Term Goal (STG) Pt to be independent and compliant with HEP STG Duration Met Progress Towards Goals Progress Towards Goals Goals Met Assessment Summary Assessment Pt has met goals, feels she is doing well enough to discharge. Pt will be discharged from skilled therapy at this time. Physical Therapy Plan Frequency and Duration Frequency of Treatment 2x/Week Duration of Treatment 10 weeks Plan of Care Start Date 11/18/17 Plan of Care End Date 01/27/18 Therapeutic Interventions Therapeutic Interventions Aquatic Therapy Home Exercise Program Joint Mobilizations Manual Therapy Patient/Caregiver Education Self-Care/Home Management Soft Tissue Mobilization Therapeutic Activities Therapeutic Exercises Modalities Cold Pack/Ice Massage Electric Stimulation Hot Packs Traction- Mechanical Ultrasound Discharge Physical Therapy Discharge Reasons Goals Met Next Visit Focus/Plan Next Note Type Discharge Summary
== END 2017-12-23 12:11 ==
LOC: PHYS 13:45
PROVIDERS: Family Provider Family Medicine; PCP Family Medicine; Visit Provider Nurse Practitioner Family
DX: S46.811A Strain of other muscles, fascia and tendons at shoulder and upper arm level, right arm, initial encounter (principal)
CPT/HCPCS: 97012; 97110; 97140; 97161

== ENCOUNTER 2018-01-07 06:31 | Inpatient (IN) | payer MEDICARE, OTHER, SELFPAY ==
[2017-12-15 08:50] VITALS: BMI 37.6
[2018-01-07] VITALS (12 sets, daily range): BP systolic 116–180; BP diastolic 63–82; PULSE 68–86; RESP 14–20; TEMP 36.1–36.7; O2SAT 92–97; BMI 37.6; BMI 39.8
[2018-01-07] MEDS: LACTATED RINGERS 1,000 ML 42 ML IV ×2 (07:00→11:03)
[2018-01-07] MEDS: VANCOMYCIN 1,000 MG/200 ML FROZ.PIGGY 200 MG IV (07:05)
[2018-01-07] MEDS: ACETAMINOPHEN 325 MG TABLET 975 MG PO ×3 (07:27→20:14)
[2018-01-07] MEDS: PREGABALIN 75 MG CAPSULE PO (07:37)
[2018-01-07] MEDS: ONDANSETRON 4 MG/2 ML INJ IV (07:40)
[2018-01-07] MEDS: DEXAMETHASONE 10 MG/ML VIAL 8 MG IV (07:41)
[2018-01-07] MEDS: CELECOXIB 200 MG CAPSULE PO (07:48)
--- NOTE | 2018-01-07 07:49 | SUR.PREOP ---
pt states she is allergic to celecoxib , anesthesia talked to patient and it is ok to give celecoxib per anesthesia
--- NOTE | 2018-01-07 07:50 | PM.PREOP ---
Pre-operative Note Interval Note Pre-op Check: Yes History & Physical Reviewed by Physician and Yes Exam Performed Changes: No
--- NOTE | 2018-01-07 08:00 | DI.RAD.S_ITS ---
PROCEDURE: XR KNEE RT 1TO2V INDICATIONS: RIGHT TOTAL KNEE TECHNIQUE: 2 view(s) of the knee acquired. COMPARISON: [facility], , KNEE 1-2 VIEWS RIGHT, 12/19/2013, 13:34. FINDINGS: Bones: Patient is status post knee joint arthroplasty. Hardware components are in expected positions. Visualized bony structures are intact. Soft tissues: Overlying postoperative changes are noted. IMPRESSION: Expected postoperative alignment. Dictated by: River Galeano M.D. on 01/07/2018 at 12:58 Approved by: River Galeano M.D. on 01/07/2018 at 13:02
--- NOTE | 2018-01-07 08:42 | SUR.OPER ---
Supine on padded OR bed. Pillow under head, arms secured on padded armboards <90 degree abduction. Safety belt across torso. Non-operative leg secured with tape over blanket over lower leg. Operative leg secured in DeMayo/Remberto positioner. Foam padded brace at thigh of operative leg.
[2018-01-07] MEDS: BUPIVACAINE 0.5% W/ EPI (PF) 20 ML, BUPIVACAINE LIPOSOME 266 MG, SODIUM CHLORIDE 0.9% 8... INJ (09:04)
[2018-01-07] MEDS: TRANEXAMIC ACID 1,000 MG VIAL 2000 MG INJ (09:09)
[2018-01-07] MEDS: BUPIVACAINE 0.5% (PF) 10 ML, TRANEXAMIC ACID 1,000 MG, SODIUM CHLORIDE 0.9% 20 ML INJ (09:12)
--- NOTE | 2018-01-07 12:00 | PM.OP.1 ---
Operative Date/Time/Diagnoses Date of procedure: 01/07/18 Time of procedure: 12:00 Pre-op diagnosis: Aseptic loosening right total knee arthroplasty Post-op diagnosis: same Procedure & Clinicians Procedure: Revision right total knee arthroplasty Same procedure as scheduled: Yes Indications: The patient presents today for revision of loose right total knee arthroplasty. Initial evaluation shows no evidence of loosening. The nature of the procedure including the risks and benefits, alternatives, postoperative course and expected outcome were discussed and all questions answered. Consent was obtained. Operative site confirmed and marked. Surgeon: Brian Sampson Concrete Pavement Installer: Vadim Munroe Anesthesia Type: General, Spinal and Local Operative Notes Findings: There was gross loosening of the femoral component. The tibial component seemed relatively well fixed. No evidence of infection. Closure Type: primary Specimen(s): other Implants & Drains: S&N Legion Revision: 3 Stemmed Femur, 2 stemmed tibia and 13 mm PS tibial tray. Cultures sent from the OR. Applied: catheter and implant(s) Estimated Blood Loss (mL): 75 Blood products transfused: none Tourniquet time (min): 27 Procedure in detail: Patient was taken the operative suite and placed under spinal and general anesthesia. 1 g of Ancef was given prior to surgery. The leg was then prepped and draped in usual sterile fashion. The leg was exsanguinated with an Esmarch dressing and tourniquet raised to 250 torr. A 15 cm anterior incision utilizing her previous incision was made. Electrocautery used to dissect through the subcutaneous tissue. Medial parapatellar arthrotomy was then made. The knee was extended and exposure carried around the medial and lateral aspect of the tibia removing as much scar tissue from the gutters as possible. There is a minimal amount of fluid in the knee. No signs of gross infection. The polyethylene tray was removed. The tourniquet was released and the knee flexed. The femoral component was grossly loose and was easily removed. There appeared to be a little bit of subsidence and bone loss medially. The tibial component was not grossly loose but was fairly easily freed up and removed without significant bone loss. All bony debris was removed from the femur and tibia. Sequential reaming was then carried out of the tibial canal up to size 12 which had good fit. A cutting guide was placed. Guide ended up taking about 5 mm off the anterior aspect of the tibia and just a minimal cut through the posterior aspect of the tibia both medially and laterally. Bone quality was good. The trial component was assembled in place. No obvious it was necessary. Next the femoral canal was reamed up to a size 14 which had excellent fit. The distal femoral cut was made removing 5 mm from the distal femur laterally and 15 mm from the distal femur medially. The femur was sized to a 3. The component was shifted posteriorly 4 mm for better fit. He was then cut for 5 mm augments on the posterior medial and lateral sides. Trial reduction was then performed. The knee had full extension and flexion beyond 120? with good medial lateral balance. With a 13 mm non-onstrained spacer. Flexion extension gaps were well balanced. There is a slightly increased the laxity laterally compared to medially after fold medial release. The trial components were removed the knee was copiously irrigated. The soft tissues were injected with a combination of Marcaine and Exparel. The components were then cemented into place with high viscosity vacuum mixed antibiotic cement. Final trial reduction was done with a 13 mm non constrained spacer. The final spacer was then placed. The knee was copiously irrigated and inspected for any cement debris. The extensor mechanism was closed with interrupted 1. Vicryl sutures. The knee was then injected with a combination of Marcaine and transexamic acid. Subcutaneous tissue was closed with 2 0 Vicryl and the skin with dominic. A janine dressing was applied. Complications: none Condition: stable Disposition: PACU Plan for aftercare: Weight bearing as tolerated. Standard postoperative protocol for total knee arthroplasty. Will continue vancomycin until cultures are clear.
[2018-01-07] MEDS: HYDROMORPHONE 2 MG TABLET PO ×2 (12:22→17:27)
[2018-01-07] MEDS: LACTATED RINGERS 1,000 ML 125 ML IV ×2 (12:22→20:14)
[2018-01-07 12:48] LABS: Estimated Glomerular Filt Rate > 60.0 mL/min (>60)
--- NOTE | 2018-01-07 14:05 | PC.NURSE ---
Admit Pt arrived to room 225, no c/o nausea or pain. Cms + PP+ Ice pack to R knee, GENE and Morgan wrap in place. A/o x3, drowsy. falling asleep during assessment. Will attempt admit later in shift. IV infusing. Medicated for pain, Dilaudid PO. Re assessed and gave APAP as well. Call light in reach.
--- NOTE | 2018-01-07 15:06 | PT.IIE ---
Current Diagnoses Presence of right artificial knee joint (01/07/18) Surgery Performed Operation Date: 01/07/18 07:45 Actual Procedures p Total Knee Arthroplasty Revision(Right) - Brian Sampson MD Surgical History (Last Updated 12/15/17 @ 09:40 by Ann Marie Perry, RN) History of arthroplasty of right knee (Acute) History of bunionectomy of right great toe (Acute) Hx laparoscopic cholecystectomy (Acute) Hx of section (Acute) Hx of left breast biopsy (Acute) Hx of thymectomy (Acute) Status post bilateral cataract extraction (Acute) History of left knee surgery (Resolved) Medical History (Last Updated 12/15/17 @ 09:27 by Ann Marie Perry RN) Trapezius muscle strain (Acute) Neuralgia (Acute) Knee pain (Chronic) Edema extremities (Acute) H/O: hysterectomy (Acute) Overactive bladder (Acute) Paroxysmal vertigo (Acute) Sleep apnea (Acute) Upper airway resistance syndrome (Acute) Hypertension (Chronic) Hypothyroidism (Chronic) Hypoventilation syndrome (Chronic 2018) Osteoarthritis (Chronic) Physical Therapy Inpatient Evaluation/Re-Eval M1 PT/OT-IP Prior Functional Status Start: 01/07/18 17:48 Freq: NEEDED Status: Active Protocol: Document 01/07/18 15:06 DLM (Rec: 01/07/18 18:00 DLM [id number]) Medical Review Prior Functional Status Medical History Reviewed Yes Diet/Fluid Consistency Regular Communication WNL Mobility and Gait Independent without device or cane, using cane due to knee pain, ambulates in the community Activities of Daily Living and IADL's Independent Social History Household Members none Living Arrangements House Number of Floors (Floors) One Floor Number of Stairs To Enter/Railing? 5 DAVID with bilateral rails Home Equipment Front Wheel Walker Straight Cane Employment Status Retired Additional Social History Comment Lives on [facility], has a daughter involved in her care M2 PT-IP Current Condition Start: 01/07/18 17:48 Freq: NEEDED Status: Active Protocol: Document 01/07/18 15:06 DLM (Rec: 01/07/18 18:00 DLM [id number]) Physical Therapy Current Condition Current Condition Evaluation Date 01/07/18 Treatment Diagnosis right TKA revision, impaired gait Onset Date 01/07/18 Weight Bearing Status Weight Bearing Status Weight Bear as Tolerated M3 PT-IP Subjective Start: 01/07/18 17:48 Freq: NEEDED Status: Active Protocol: Document 01/07/18 15:06 DLM (Rec: 01/07/18 18:00 DLM [id number]) Subjective Physical Therapy Visit Type Type Initial Evaluation Visit Start Time 14:30 Visit Stop Time 15:06 Total Visit Minutes 36 Number of HOISTING ENGINEER Visits 0 Physical Therapy Visit Comments Patient Comments She feels ready to get up, knee feels better since surgery Patient Goals she wants to go to [facility] before going home Therapy Pain Assessment Pain When Pain Assessed At Rest Pain Present Pain Present Pain Reported Location Right Knee Intensity 3 Scale Used Numeric (1 - 10) Description Aching Pain Management Techniques Apply Cold Re-positioning M4 PT-IP Mobility and Gait Start: 01/07/18 17:48 Freq: NEEDED Status: Active Protocol: Document 01/07/18 15:06 DLM (Rec: 01/07/18 18:00 DLM [id number]) PT-Bed Mobility Assessment Supine to Sit Supine to Sit Minimal Assistance Sit to Supine Sit to Supine Minimal Assistance Scooting Scooting to Edge of Bed Standby Assistance PT-Transfer Assessment Sit to and From Stand Sit to and from Stand Contact Guard Assistance Equipment Transfer Assistive Device Gait Belt Front Wheeled Walker Transfers Transfer Destination Chair Transfer Technique Stand Step Pivot Transfer Ability Level of Assist Contact Guard Assistance Comments Mobility Comments light headed when first attempted gait so sat where symptoms resolved and pt ok on second attempt Gait Assessment Gait Gait Assistance Required: Contact Guard Assist Distance (Feet) 9 Able to Maintain Weight Bearing Status Yes During Gait Assistive Devices Assistive Device Gait Belt Front Wheeled Walker Gait Deviations General Gait Pattern Antalgic Factors Limiting Gait Function Factors Limiting Gait Function Decreased Activity Tolerance Decreased Strength Pain Poor Balance Comments Gait Comments pain with any attempts to flex right knee during gait, keeping knee in extension PT-Balance Assessment Sitting Balance and Reactions Static Sitting Balance Ability Normal Dynamic Sitting Balance Ability Good Standing Balance and Reactions Static Standing Balance Ability Good Dynamic Standing Balance Ability Fair Device Used FWW M5 PT-IP Objective Assessments Start: 01/07/18 17:48 Freq: NEEDED Status: Active Protocol: Document 01/07/18 15:06 DLM (Rec: 01/07/18 18:00 DLM [id number]) Orientation Orientation/Cognition Level of Alertness Alert Orientation Name Age Birthday Month Date Year Day of Week Place Situation Language Function Ability No Deficits Noted Safety Awareness Understands Safety Issues Memory Description No Deficits Noted Gross Range of Motion Upper Extremity ROM Assessment Within Functional Limits Lower Extremity ROM Assessment Right Impaired Impairments pain limits movement of right knee, poor tolerance for flexion today (about 20 degrees), tolerating full extension well Strength Upper Extremity Strength Assessment Within Functional Limits Lower Extremity Strength Assessment Right Impaired Hip need assist to lift right LE off bed Knee pain with quad set, unable to functionally flex at this time Ankle good active movement of ankle Comments Strength Comments rodolfo wrap on right knee area Coordination Assessment Gross Coordination Gross Coordination WNL Sensation Assessment Sensation Gross Sensation WNL Muscle Tone Muscle Tone WNL Yes M6 PT-IP Treatment Start: 01/07/18 17:48 Freq: NEEDED Status: Active Protocol: Document 01/07/18 15:06 DLM (Rec: 01/07/18 18:00 DLM [id number]) Physical Therapy Treatment Exercises Exercises Ankle Pumps Quad Sets Education Education Provided Weight Bearing Status Post-Op Packet Safety M7 PT-IP Assessment and Plan Start: 01/07/18 17:48 Freq: NEEDED Status: Active Protocol: Document 01/07/18 15:06 DLM (Rec: 01/07/18 18:00 DLM [id number]) PT Summary Assessment and Plan Potential Rehabilitation Potential Good Status of Condition at Evaluation Evolving Summary Impairments Pain ROM Strength Balance Bed Mobility Transfers Gait Activity Tolerance Assessment Summary She tolerated mobility well today but poor tolerance of knee flexion with c/o pain. She does not feel safe to discharge home alone on [facility] and wants to go to SNF at discharge. She is a good candidate for SNF and recovered well with SNF staff after prior knee surgeries. Goals Bed Mobility Goal Independent Transfer Goal Standby Assistance Gait Goal Standby Assistance Front Wheel Walker Gait Distance 60 feet Other Goals up and down 5 steps with rails and min assist Days to Meet Goals 3 Frequency of Treatment Frequency Of Treatment Twice a Day Treatment Plan Physical Therapy Treatment Plan Bed Mobility Training Transfer Training Gait Training Therapeutic Exercise Balance Retraining Post Op Education Discharge Planning Hot or Cold Pack Recommendations To Nursing Amount of Assist Needed 1 Person Assist Discharge Recommendations PT Discharge Recommendations SNF Rehab Other Discharge Recommendations pt does not feel safe to discharge home alone to [facility]
[2018-01-07] MEDS: VANCOMYCIN 750 MG/150 ML FROZ.PIGGY 150 MG IV (19:08)
[2018-01-07] MEDS: ASPIRIN EC 81 MG TABLET PO (20:14)
--- NOTE | 2018-01-07 21:14 | PC.NURSE ---
Student Nurse Note: Post-Medication Administration Pain Assessment Patient appears visually comfortable and without pain. Patient requested pain medication to relieve post-surgical pain, patient reported 8/10 pain (total knee replacement, right side). Patient received 2mg Dilaudid PO at 1800. During the post-administration assessment the patient reported reduced pain levels and increased comfort, patient reported no pain (0/10).
[2018-01-08] VITALS (7 sets, daily range): BP systolic 118–149; BP diastolic 54–68; PULSE 56–74; RESP 15–18; TEMP 36–36.8; O2SAT 94–96
[2018-01-08] MEDS: HYDROMORPHONE 2 MG TABLET PO ×3 (00:07→15:41)
--- NOTE | 2018-01-08 00:22 | PC.NURSE ---
Patient is alert and oriented. Breath sounds with fine inspiratory crackles bilateral bases but with RA sat of 96%; denies SOB. HRR. Denies nausea. BT present but states she is not yet passing flatus. Indwelling catheter is patent with clear, pale yellow urine in bag. Able to turn self in bed. Complains of right knee pain exacerbated with movement with severity of 7/10; medicated with Dilaudid and replaced ice pack. Is able to move right LE but cannot lift off bed. Pedal pulse is weaker in right foot than in left. Denies any tingling/numbness. Wearing bilateral SCD's. Fall risk score is high so bed alarm activated.
[2018-01-08] MEDS: IBUPROFEN 600 MG TABLET PO ×2 (04:30→13:13)
[2018-01-08] MEDS: LACTATED RINGERS 1,000 ML 125 ML IV (04:30)
[2018-01-08 05:31] LABS: Hemoglobin 11.5 g/dL (12.0-16.0)
[2018-01-08] MEDS: VANCOMYCIN 750 MG/150 ML FROZ.PIGGY 150 MG IV ×2 (06:42→19:43)
[2018-01-08] MEDS: ASPIRIN EC 81 MG TABLET PO ×2 (08:54→20:42)
[2018-01-08] MEDS: ACETAMINOPHEN 325 MG TABLET 975 MG PO ×3 (08:54→20:41)
--- NOTE | 2018-01-08 09:23 | CM.DANOTE ---
DCP: Case received, EMR reviewed and met with patient. Introduced self and role. DCP template completed with information currently available. Patient is a 77 year old female who admitted yesterday morning to the care of the hospitalist team. PCP: Dr. Ferguson. Payer: confirmed: Medicare/ for Life. Patient came in for a total knee replacement. Lives alone at home, and is independent. Patient is requesting to go to [facility], as she stated that she has gone there before, when she had other knee surgeries. Let her know that she would need to be here for 3 midnights, which started yesterday. Called [facility], spoke to Lelo. She is familiar with patient. Faxed over face sheet and notes. They will look at her insurance and hold a spot for her. P: DCP to continue to follow. Plan is for her to go to [facility] upon discharge. Mikki Murrieta RN/Drafter Detail
--- NOTE | 2018-01-08 09:25 | CM.DPC ---
Referral faxed to [facility]
--- NOTE | 2018-01-08 10:40 | PT.IPTN ---
Current Diagnoses Presence of right artificial knee joint (01/07/18) Surgery Performed Operation Date: 01/07/18 07:45 Actual Procedures p Total Knee Arthroplasty Revision(Right) - Brian Sampson MD Physical Therapy Treatment Note M2 PT-IP Current Condition Start: 01/07/18 17:48 Freq: NEEDED Status: Active Protocol: Document 01/07/18 15:06 DLM (Rec: 01/07/18 18:00 DLM [id number]) Physical Therapy Current Condition Current Condition Evaluation Date 01/07/18 Treatment Diagnosis right TKA revision, impaired gait Onset Date 01/07/18 Weight Bearing Status Weight Bearing Status Weight Bear as Tolerated M3 PT-IP Subjective Start: 01/07/18 17:48 Freq: NEEDED Status: Active Protocol: Document 01/08/18 10:40 GGD (Rec: 01/08/18 11:11 GGD [id number]) Subjective Physical Therapy Visit Type Type Treatment Note Visit Start Time 10:10 Visit Stop Time 10:40 Total Visit Minutes 30 Number of CPR INSTRUCTOR Visits 1 Physical Therapy Visit Comments Patient Comments Pt would like to get up, she states her knee is getting stiff. Therapy Pain Assessment Pain When Pain Assessed At Rest Pain Present Pain Present Pain Reported Location Right Knee Intensity 3 Scale Used Numeric (1 - 10) Pain Management Techniques Apply Cold Re-positioning M4 PT-IP Mobility and Gait Start: 01/07/18 17:48 Freq: NEEDED Status: Active Protocol: Document 01/08/18 10:40 GGD (Rec: 01/08/18 11:11 GGD [id number]) PT-Bed Mobility Assessment Supine to Sit Supine to Sit Minimal Assistance Head of Bed Elevated Bedrails Scooting Scooting to Edge of Bed Contact Guard Assistance PT-Transfer Assessment Sit to and From Stand Sit to and from Stand Contact Guard Assistance Equipment Transfer Assistive Device Gait Belt Front Wheeled Walker Transfers Transfer Destination Chair Gait Assessment Gait Gait Assistance Required: Contact Guard Assist Distance (Feet) 80 Able to Maintain Weight Bearing Status Yes During Gait Assistive Devices Assistive Device Gait Belt Front Wheeled Walker Orthotic/Prosthetic Devices or Brace: No Gait Deviations General Gait Pattern Antalgic Factors Limiting Gait Function Factors Limiting Gait Function Decreased Strength Limited Range of Motion Pain M5 PT-IP Objective Assessments Start: 01/07/18 17:48 Freq: NEEDED Status: Active Protocol: Document 01/07/18 15:06 DLM (Rec: 01/07/18 18:00 [facility] [id number]) Orientation Orientation/Cognition Level of Alertness Alert Orientation Name Age Birthday Month Date Year Day of Week Place Situation Language Function Ability No Deficits Noted Safety Awareness Understands Safety Issues Memory Description No Deficits Noted Gross Range of Motion Upper Extremity ROM Assessment Within Functional Limits Lower Extremity ROM Assessment Right Impaired Impairments pain limits movement of right knee, poor tolerance for flexion today (about 20 degrees), tolerating full extension well Strength Upper Extremity Strength Assessment Within Functional Limits Lower Extremity Strength Assessment Right Impaired Hip need assist to lift right LE off bed Knee pain with quad set, unable to functionally flex at this time Ankle good active movement of ankle Comments Strength Comments rodolfo wrap on right knee area Coordination Assessment Gross Coordination Gross Coordination WNL Sensation Assessment Sensation Gross Sensation WNL Muscle Tone Muscle Tone WNL Yes M6 PT-IP Treatment Start: 01/07/18 17:48 Freq: NEEDED Status: Active Protocol: Document 01/08/18 10:40 GGD (Rec: 01/08/18 11:11 GGEnid [id number]) Physical Therapy Treatment Exercises Exercises Ankle Pumps Quad Sets Heel Slides Seated Knee Flexion/Extension M7 PT-IP Assessment and Plan Start: 01/07/18 17:48 Freq: NEEDED Status: Active Protocol: Document 01/08/18 10:40 GGD (Rec: 01/08/18 11:11 GGD [id number]) PT Summary Assessment and Plan Summary Assessment Summary Pt improving slowly with mobility. She had increase in pain with gait with knee flexion. She need min cues for gait, but no unsteadiness or LOB. She needs assistance with bed mobility and right LE. Frequency of Treatment Frequency Of Treatment Twice a Day Recommendations To Nursing Amount of Assist Needed 1 Person Assist Discharge Recommendations PT Discharge Recommendations SNF Rehab
--- NOTE | 2018-01-08 11:17 | PM.PNPO.1 ---
Subjective Date Patient Seen: 01/08/18 Time Patient Seen: 11:17 Interval history: POD #1 status post revision total knee arthroplasty with Dr. Sampson. Patient's pain is well controlled. She has a Chavez in place. Patient notes history of needing to stay at SNF following recovery of 2 prior total knee replacements. She lives alone. She has only mobilized to her chair with PT. Exam Vital Signs (past 8 hours): - 01/08/18 04:15 01/08/18 08:30 Temperature 97.9 F 96.9 F L Pulse Rate 56 L 61 Respiratory Rate 18 16 Blood Pressure 118/54 L 137/66 Pulse Oximetry 94 94 Oxygen Delivery Method Room Air Oxygen Flow Rate 0 Narrative Exam Narrative: Patient lying in bed in no acute distress. Santino dressing CDI and functioning. Morgan wrap in place. Calves are soft, compressible, nontender bilaterally. Sensation intact light touch throughout bilateral lower extremities. She is able to actively dorsiflex and plantar flex. She has a Chavez in. Objective Labs Result Diagrams: 01/08/18 05:15 01/07/18 12:26 Labs: Laboratory Results - last 24 hr 01/07/18 01/08/18 12:26 05:15 Hgb 11.5 L Hct 34.0 L Creatinine 0.70 Estimated GFR > 60.0 Assessment & Plan Post-op (1) Urinary incontinence: Onset Date: 03/13/15 Current Visit: No Status: None (2) Essential hypertension: Onset Date: 04/09/15 Current Visit: No Status: None (3) S/P total knee arthroplasty: Current Visit: Yes Status: Acute Postoperative Procedures Operation Date: 01/07/18 07:45 Actual Procedures Side Surgeon p Total Knee Arthroplasty Revision Right Brian Sampson MD POD #1 status post revision total knee arthroplasty with Dr. Sampson. Continue current pain management. Continue to mobilize with physical therapy. Keep dressing in place. There was an issue with culture orders in the OR being canceled. Laboratory was called this morning and 1 swab I was able to order aerobic cultures today. Dr. Sampson was notified, and given there were no gross signs of infection in the OR, okay to remain on IV vancomycin while in the hospital. Patient will likely need SNF for continued recovery following surgery. DC once stable.
--- NOTE | 2018-01-08 12:14 | CM.DPC ---
DCP Cont: Spoke to daughter, [place]. Stated that she has been concerned about mom living alone, and is wanting to make some home care plans. Is aware that patient wants to go to [facility]. Daughter stated that her mom told her that she was being discharged tomorrow. Let her know that patient would need to be here for 3 midnights to qualify for skilled. Daughter concerned that she will be discharged sooner. Called Dr. Renteria's office and left a message. In notes by ortho, does state that skilled would be in patient's best interest. P: DCP to continue to assess. Patient wishes to go to [facility], will continue to communicate this with orthopedic, and will also await call back from office. Mikki Murrieta RN/Composite Mechanic
--- NOTE | 2018-01-08 12:33 | CM.DPC ---
DCP Cont: Spoke to Lelo at [facility], is noted that patient would qualify for stay on Thursday, versus Thursday. She was inquiring as to why patient is on Vancomycin, gave her information on operative report. Is unclear if patient will be discharged with IV. Lelo stated that they could also help daughter, [place], with home care plans. P: DCP to continue to assess. [facility] is the current plan. Will continue to update daughter. Mikki Murrieta RN/Casing Inspector
--- NOTE | 2018-01-08 12:38 | PC.NURSE ---
Cierra has been able to get up and walk in halls with PT. She states her pain is well managed with oral Dilaudid. Ortho check WDL. Morgan bandage R LE clean/dry/intact with Picco drain flashing green light. VSS.
--- NOTE | 2018-01-08 15:35 | PT.IPTN ---
Current Diagnoses Essential (primary) hypertension (01/07/18) Unspecified urinary incontinence (01/07/18) Presence of right artificial knee joint (01/07/18) Presence of unspecified artificial knee joint (01/07/18) Surgery Performed Operation Date: 01/07/18 07:45 Actual Procedures p Total Knee Arthroplasty Revision(Right) - Brian Sampson MD Physical Therapy Treatment Note M2 PT-IP Current Condition Start: 01/07/18 17:48 Freq: NEEDED Status: Active Protocol: Document 01/07/18 15:06 DLM (Rec: 01/07/18 18:00 DLM [id number]) Physical Therapy Current Condition Current Condition Evaluation Date 01/07/18 Treatment Diagnosis right TKA revision, impaired gait Onset Date 01/07/18 Weight Bearing Status Weight Bearing Status Weight Bear as Tolerated M3 PT-IP Subjective Start: 01/07/18 17:48 Freq: NEEDED Status: Active Protocol: Document 01/08/18 15:35 GGD (Rec: 01/08/18 16:16 GGD [email or web address]) Subjective Physical Therapy Visit Type Type Treatment Note Visit Start Time 15:05 Visit Stop Time 15:35 Total Visit Minutes 30 Number of KIDS ACTIVITIES COACH Visits 2 Physical Therapy Visit Comments Patient Comments Pt states that she would like to use the bathroom. Therapy Pain Assessment Pain When Pain Assessed At Rest Pain Present Pain Present Pain Reported Location Right Knee Intensity 4 Scale Used Numeric (1 - 10) Pain Management Techniques Re-positioning M4 PT-IP Mobility and Gait Start: 01/07/18 17:48 Freq: NEEDED Status: Active Protocol: Document 01/08/18 15:35 GGD (Rec: 01/08/18 16:16 GGD [email or web address]) PT-Bed Mobility Assessment Sit to Supine Sit to Supine Minimal Assistance 1 Person Assistance Scooting Scooting to Edge of Bed Contact Guard Assistance PT-Transfer Assessment Sit to and From Stand Sit to and from Stand Contact Guard Assistance Equipment Transfer Assistive Device Gait Belt Front Wheeled Walker Orthotic/Prosthetic Devices or Brace: No Transfers Transfer Destination Bed Gait Assessment Gait Gait Assistance Required: Contact Guard Assist Distance (Feet) 50 Able to Maintain Weight Bearing Status Yes During Gait Assistive Devices Assistive Device Gait Belt Front Wheeled Walker Orthotic/Prosthetic Devices or Brace: No Gait Deviations General Gait Pattern Antalgic Factors Limiting Gait Function Factors Limiting Gait Function Decreased Sensation Limited Range of Motion Pain M5 PT-IP Objective Assessments Start: 01/07/18 17:48 Freq: NEEDED Status: Active Protocol: Document 01/07/18 15:06 DLM (Rec: 01/07/18 18:00 DLM [id number]) Orientation Orientation/Cognition Level of Alertness Alert Orientation Name Age Birthday Month Date Year Day of Week Place Situation Language Function Ability No Deficits Noted Safety Awareness Understands Safety Issues Memory Description No Deficits Noted Gross Range of Motion Upper Extremity ROM Assessment Within Functional Limits Lower Extremity ROM Assessment Right Impaired Impairments pain limits movement of right knee, poor tolerance for flexion today (about 20 degrees), tolerating full extension well Strength Upper Extremity Strength Assessment Within Functional Limits Lower Extremity Strength Assessment Right Impaired Hip need assist to lift right LE off bed Knee pain with quad set, unable to functionally flex at this time Ankle good active movement of ankle Comments Strength Comments rodolfo wrap on right knee area Coordination Assessment Gross Coordination Gross Coordination WNL Sensation Assessment Sensation Gross Sensation WNL Muscle Tone Muscle Tone WNL Yes M6 PT-IP Treatment Start: 01/07/18 17:48 Freq: NEEDED Status: Active Protocol: Document 01/08/18 15:35 GGD (Rec: 01/08/18 16:16 GGD [email or web address]) Physical Therapy Treatment Exercises Exercises Ankle Pumps Quad Sets Heel Slides Seated Knee Flexion/Extension M7 PT-IP Assessment and Plan Start: 01/07/18 17:48 Freq: NEEDED Status: Active Protocol: Document 01/08/18 15:35 GGD (Rec: 01/08/18 16:16 GGD [email or web address]) PT Summary Assessment and Plan Summary Assessment Summary Pt improving with mobility. She need cues with leg postion for sit <> stand. She need min A with right LE for bed mobility. Frequency of Treatment Frequency Of Treatment Twice a Day Recommendations To Nursing Amount of Assist Needed 1 Person Assist Discharge Recommendations PT Discharge Recommendations SNF Rehab
[2018-01-08] MEDS: VANCOMYCIN TROUGH 1 REQUEST MISC (18:45)
[2018-01-08 19:31] LABS: Vancomycin Trough 7.9 ug/mL (10-20)
--- NOTE | 2018-01-08 22:09 | PC.NURSE ---
Patient is A&OX4, 97% on RA, rates pain 2/10 while laying in bed during shift assessment. This RN discussed clark removal per protocol with patient, patient states she is refusing to have it removed at this time and would prefer to wait one more day before taking it out. Patient states is willing to try tomorrow AM. Call light is in reach, will continue to monitor.
--- NOTE | 2018-01-09 00:25 | PC.NURSE ---
Addendum entered by Ryann Paris R.N. 01/09/18 07:04: Up to bathroom and able to void 200cc urine. Now in chair and crying; states pain is 8/10 but maybe I'm just emotional; medicated with Dilaudid. Original Note: Addendum entered by Ryann Paris R.N. 01/09/18 06:05: Catheter removed at 0553 and patient tolerated well. Instructed in sx/prevention of UTI. Provided pull-up as states she has an overactive bladder. States pain is now 5/10 and much more tolerable. Original Note: Addendum entered by Ryann Paris R.N. 01/09/18 05:23: Medicated per RNKina, with requested Ibuprofen for 7/10 pain in right knee. Shortly after asking for Dilaudid. Discussed pain med options with patient and assisted her into a different position and now states the pain is lessening. Patient is aware if pain medication does not get pain down to tolerable level she can still have Dilaudid later. Original Note: Patient is alert and oriented. Breath sounds CTA with RA + CPAP sat is 92%. HRR. Denies nausea. BT present and is passing flatus. Indwelling catheter is patent; patient aware plan is to remove in a.m. Able to turn self in be. GENE dressing + rodolfo wrap to right knee CDI. CMS is intact. Wearing bilateral SCD's. Denies pain. Fall risk score is high so bed alarm activated.
[2018-01-09] MEDS: VANCOMYCIN 750 MG/150 ML FROZ.PIGGY 150 MG IV ×3 (03:00→19:29)
[2018-01-09] MEDS: SODIUM CHLORIDE 0.9% FLUSH 10 ML IV ×3 (03:01→20:53)
[2018-01-09 03:13] VITALS: BP 123/56; PULSE 63; RESP 16; TEMP 36.5; O2SAT 95
[2018-01-09] MEDS: IBUPROFEN 600 MG TABLET PO ×3 (04:52→16:07)
[2018-01-09] MEDS: HYDROMORPHONE 2 MG TABLET PO (07:04)
[2018-01-09 07:20] VITALS: BP 152/74; PULSE 67; RESP 16; TEMP 36.7; O2SAT 97
[2018-01-09] MEDS: ASPIRIN EC 81 MG TABLET PO ×2 (09:25→20:53)
[2018-01-09] MEDS: ACETAMINOPHEN 325 MG TABLET 975 MG PO ×2 (09:25→20:53)
--- NOTE | 2018-01-09 09:41 | PM.PNPO.1 ---
Subjective Date Patient Seen: 01/09/18 Time Patient Seen: 09:41 Interval history: Pain mild at rest. Patient having severe pain with movement. Denies fever chills. No nausea vomiting. Patient lives alone. Exam Vital Signs (past 8 hours): - 01/09/18 03:13 01/09/18 07:20 Temperature 97.7 F 98.1 F Pulse Rate 63 67 Respiratory Rate 16 16 Blood Pressure 123/56 L 152/74 H Pulse Oximetry 95 97 Oxygen Delivery Method Room Air,CPAP Oxygen Flow Rate 0 Narrative Exam Narrative: 77-year-old female resting comfortably in bed in no apparent distress. Santino dressing is on and functioning. Motor functions intact distal right lower extremity. Sensation grossly intact to light touch distal right lower extremity. Objective Labs Result Diagrams: 01/08/18 05:15 01/07/18 12:26 Labs: Laboratory Results - last 24 hr 01/08/18 18:45 Vancomycin Trough 7.9 L Assessment & Plan Post-op Postoperative Procedures Operation Date: 01/07/18 07:45 Actual Procedures Side Surgeon p Total Knee Arthroplasty Revision Right Brian Sampson MD POD #2 status post revision total knee arthroplasty with Dr. Sampson. Continue current pain management. Continue to mobilize with physical therapy. Keep dressing in place. There was an issue with culture orders in the OR being canceled. Laboratory was called this morning and 1 swab I was able to order aerobic cultures today. Dr. Sampson was notified, and given there were no gross signs of infection in the OR, okay to remain on IV vancomycin while in the hospital. Gram stain shows no cells no organisms. Aerobic culture shows no growth to date still preliminary. Pending final culture results patient will not require outpatient antibiotics. Patient will likely need SNF for continued recovery following surgery.
--- NOTE | 2018-01-09 10:30 | PT.IPTN ---
Current Diagnoses Essential (primary) hypertension (01/07/18) Unspecified urinary incontinence (01/07/18) Presence of right artificial knee joint (01/07/18) Presence of unspecified artificial knee joint (01/07/18) Surgery Performed Operation Date: 01/07/18 07:45 Actual Procedures p Total Knee Arthroplasty Revision(Right) - Brian Sampson MD Physical Therapy Treatment Note M2 PT-IP Current Condition Start: 01/07/18 17:48 Freq: NEEDED Status: Active Protocol: Document 01/07/18 15:06 DLM (Rec: 01/07/18 18:00 DLM [id number]) Physical Therapy Current Condition Current Condition Evaluation Date 01/07/18 Treatment Diagnosis right TKA revision, impaired gait Onset Date 01/07/18 Weight Bearing Status Weight Bearing Status Weight Bear as Tolerated M3 PT-IP Subjective Start: 01/07/18 17:48 Freq: NEEDED Status: Active Protocol: Document 01/09/18 10:30 GGD (Rec: 01/09/18 11:55 GGD [email or web address]) Subjective Physical Therapy Visit Type Type Treatment Note Visit Start Time 10:05 Visit Stop Time 10:30 Total Visit Minutes 25 Number of DENTAL EQUIPMENT MECHANIC Visits 3 Physical Therapy Visit Comments Patient Comments Pt states she had lots of pain this morning. Therapy Pain Assessment Pain When Pain Assessed At Rest Pain Present Pain Present Pain Reported Location Right Knee Intensity 3 Scale Used Numeric (1 - 10) Pain Management Techniques Apply Cold Re-positioning M4 PT-IP Mobility and Gait Start: 01/07/18 17:48 Freq: NEEDED Status: Active Protocol: Document 01/09/18 10:30 GGD (Rec: 01/09/18 11:55 GGD [email or web address]) PT-Transfer Assessment Sit to and From Stand Sit to and from Stand Contact Guard Assistance Equipment Transfer Assistive Device Gait Belt Front Wheeled Walker Orthotic/Prosthetic Devices or Brace: No Transfers Transfer Destination Chair Gait Assessment Gait Gait Assistance Required: Contact Guard Assist Distance (Feet) 120 Able to Maintain Weight Bearing Status Yes During Gait Assistive Devices Assistive Device Gait Belt Front Wheeled Walker Orthotic/Prosthetic Devices or Brace: No Gait Deviations General Gait Pattern Antalgic Factors Limiting Gait Function Factors Limiting Gait Function Decreased Sensation Limited Range of Motion Pain M5 PT-IP Objective Assessments Start: 01/07/18 17:48 Freq: NEEDED Status: Active Protocol: Document 01/07/18 15:06 DLM (Rec: 01/07/18 18:00 DLM [id number]) Orientation Orientation/Cognition Level of Alertness Alert Orientation Name Age Birthday Month Date Year Day of Week Place Situation Language Function Ability No Deficits Noted Safety Awareness Understands Safety Issues Memory Description No Deficits Noted Gross Range of Motion Upper Extremity ROM Assessment Within Functional Limits Lower Extremity ROM Assessment Right Impaired Impairments pain limits movement of right knee, poor tolerance for flexion today (about 20 degrees), tolerating full extension well Strength Upper Extremity Strength Assessment Within Functional Limits Lower Extremity Strength Assessment Right Impaired Hip need assist to lift right LE off bed Knee pain with quad set, unable to functionally flex at this time Ankle good active movement of ankle Comments Strength Comments rodolfo wrap on right knee area Coordination Assessment Gross Coordination Gross Coordination WNL Sensation Assessment Sensation Gross Sensation WNL Muscle Tone Muscle Tone WNL Yes M6 PT-IP Treatment Start: 01/07/18 17:48 Freq: NEEDED Status: Active Protocol: Document 01/09/18 10:30 GGD (Rec: 01/09/18 11:55 GGD [email or web address]) Physical Therapy Treatment Exercises Exercises Ankle Pumps Quad Sets Heel Slides Seated Knee Flexion/Extension M7 PT-IP Assessment and Plan Start: 01/07/18 17:48 Freq: NEEDED Status: Active Protocol: Document 01/09/18 10:30 GGD (Rec: 01/09/18 11:55 GGD [email or web address]) PT Summary Assessment and Plan Summary Assessment Summary Pt able to progress gait. She had increase pain with knee flexion during gait and with sit to stand. She needs cues for safe transfers. Frequency of Treatment Frequency Of Treatment Twice a Day Recommendations To Nursing Amount of Assist Needed 1 Person Assist Discharge Recommendations PT Discharge Recommendations SNF Rehab
[2018-01-09] MEDS: SODIUM CHLORIDE 0.9% 250 ML 21 ML IV (11:00)
--- NOTE | 2018-01-09 12:00 | CM.DPC ---
Addendum entered by Darby Armando LPN 01/09/18 12:08: will complete PASRR and fax to [facility] as in prep for eventual admission to facility. Original Note: DCP: continued: Case received, EMR reviewed and met with pt. She is found up in reclining chair. Introduced self and role. Pt confirms her plan for [facility] at d/c. She says she is having lots of pain still. So much more than when I had the knee surgery the first time. Lelo called from [facility] to confirm the plan. She will set van transport up when d/c order is received. Pt and her daughter are very concerned re having her d/c too early and while pain is so pronounced. Pt will dicuss this with rounding ortho team tomorrow. NANI Munroe did confirm in his note of today that pt will not need IV antibiotics at d/c. She is still getting IV vanco in the hospital. PT is seeing pt. OT is not ordered.
[2018-01-09 12:02] VITALS: BP 146/66; PULSE 68; RESP 17; TEMP 36.6; O2SAT 93
--- NOTE | 2018-01-09 14:19 | PC.NURSE ---
Cierra has been able to sit in chair, amb. occasionally to BR with staff using walker, and perform with PT today. She reports adq. pain control by alternating Dilaudid and Ibuprofen. VSS. Afebrile. R knee drsg. clean/dry/intact with green flashing light in Picco wound vac. She is mostly incontinent of UOP and is wearing pull-ups. Vanco given IV. Vanco trough level pending this PM.
--- NOTE | 2018-01-09 14:33 | PT.IPTN ---
Current Diagnoses Essential (primary) hypertension (01/07/18) Unspecified urinary incontinence (01/07/18) Presence of right artificial knee joint (01/07/18) Presence of unspecified artificial knee joint (01/07/18) Surgery Performed Operation Date: 01/07/18 07:45 Actual Procedures p Total Knee Arthroplasty Revision(Right) - Brian Sampson MD Physical Therapy Treatment Note M2 PT-IP Current Condition Start: 01/07/18 17:48 Freq: NEEDED Status: Active Protocol: Document 01/07/18 15:06 DLM (Rec: 01/07/18 18:00 DLM [id number]) Physical Therapy Current Condition Current Condition Evaluation Date 01/07/18 Treatment Diagnosis right TKA revision, impaired gait Onset Date 01/07/18 Weight Bearing Status Weight Bearing Status Weight Bear as Tolerated M3 PT-IP Subjective Start: 01/07/18 17:48 Freq: NEEDED Status: Active Protocol: Document 01/09/18 13:45 LJ (Rec: 01/09/18 14:33 LJ [id number]) Subjective Physical Therapy Visit Type Type Treatment Note Visit Start Time 13:45 Visit Stop Time 14:10 Total Visit Minutes 25 Number of ACCOUNTANT CERTIFIED PUBLIC Visits 4 Physical Therapy Visit Comments Patient Comments Reported her pain was high when sitting but standing and walking releived it. Pt in bathroom w/NAC. Therapy Pain Assessment Pain When Pain Assessed At Rest Pain Present Pain Present Pain Reported Location Right Knee Intensity 6 Scale Used Numeric (1 - 10) Pain Management Techniques Apply Cold Re-positioning M4 PT-IP Mobility and Gait Start: 01/07/18 17:48 Freq: NEEDED Status: Active Protocol: Document 01/09/18 13:45 LJ (Rec: 01/09/18 14:33 LJ [id number]) PT-Transfer Assessment Sit to and From Stand Sit to and from Stand Contact Guard Assistance Equipment Transfer Assistive Device Gait Belt Front Wheeled Walker Orthotic/Prosthetic Devices or Brace: No Transfers Transfer Destination Chair Transfer Ability Level of Assist Contact Guard Assistance Gait Assessment Gait Gait Assistance Required: Contact Guard Assist Distance (Feet) 100 Able to Maintain Weight Bearing Status Yes During Gait Assistive Devices Assistive Device Gait Belt Front Wheeled Walker Orthotic/Prosthetic Devices or Brace: No Gait Deviations General Gait Pattern Antalgic Factors Limiting Gait Function Factors Limiting Gait Function Decreased Sensation Limited Range of Motion Pain Comments Gait Comments Pt reported her leg felt longer and it was less painful to ambulate than proir to surgery M5 PT-IP Objective Assessments Start: 01/07/18 17:48 Freq: NEEDED Status: Active Protocol: Document 01/07/18 15:06 DLM (Rec: 01/07/18 18:00 DLM [id number]) Orientation Orientation/Cognition Level of Alertness Alert Orientation Name Age Birthday Month Date Year Day of Week Place Situation Language Function Ability No Deficits Noted Safety Awareness Understands Safety Issues Memory Description No Deficits Noted Gross Range of Motion Upper Extremity ROM Assessment Within Functional Limits Lower Extremity ROM Assessment Right Impaired Impairments pain limits movement of right knee, poor tolerance for flexion today (about 20 degrees), tolerating full extension well Strength Upper Extremity Strength Assessment Within Functional Limits Lower Extremity Strength Assessment Right Impaired Hip need assist to lift right LE off bed Knee pain with quad set, unable to functionally flex at this time Ankle good active movement of ankle Comments Strength Comments rodolfo wrap on right knee area Coordination Assessment Gross Coordination Gross Coordination WNL Sensation Assessment Sensation Gross Sensation WNL Muscle Tone Muscle Tone WNL Yes M6 PT-IP Treatment Start: 01/07/18 17:48 Freq: NEEDED Status: Active Protocol: Document 01/09/18 13:45 LJ (Rec: 01/09/18 14:33 [id number]) Physical Therapy Treatment Exercises Exercises Ankle Pumps Gluteal Sets Quad Sets Seated Knee Flexion/Extension Education Education Provided Safety M7 PT-IP Assessment and Plan Start: 01/07/18 17:48 Freq: NEEDED Status: Active Protocol: Document 01/09/18 13:45 LJ (Rec: 01/09/18 14:33 [id number]) PT Summary Assessment and Plan Summary Assessment Summary Pt using gait belt d/t difficulty in hip hip and knee flexion. Pt reports she cannot lift her RLE w/o belt around food. Gait distance shortened from am treatment d/ t pt reporting it to be too much. Frequency of Treatment Frequency Of Treatment Twice a Day Recommendations To Nursing Amount of Assist Needed 1 Person Assist Discharge Recommendations PT Discharge Recommendations SNF Rehab
[2018-01-09 16:30] VITALS: BP 147/65; PULSE 65; RESP 20; TEMP 36.3; O2SAT 99
[2018-01-09] MEDS: VANCOMYCIN TROUGH 1 REQUEST MISC (19:02)
[2018-01-09 20:34] VITALS: BP 143/57; PULSE 66; RESP 18; TEMP 36.3; O2SAT 95
[2018-01-09] MEDS: DOCUSATE 100 MG CAPSULE PO (20:53)
[2018-01-09] MEDS: SENNOSIDES 8.6 MG TABLET 17.2 MG PO (20:53)
[2018-01-10] MEDS: HYDROMORPHONE 2 MG TABLET PO (00:13)
[2018-01-10 00:16] VITALS: BP 176/67; PULSE 69; RESP 14; TEMP 36.6; O2SAT 97
--- NOTE | 2018-01-10 00:27 | PC.NURSE ---
Patient is alert and oriented. Breath sounds diminished at bases but CTA with RA sat of 97%. HRR. BP elevated at 176/67 at rest. Denies nausea. BT present and is passing flatus. Urinary urgency and some dribbling/incontinence due to overactive bladder but denies dysuria or frequency. Able to turn self in bed. Assisted to bathroom with 1 assist and walker; is able to get right leg out of bed with use of gait belt on foot but needed assist to get leg back into bed. Initially stated pain was 1/10 but after being up to bathroom states pain is 5/10 and increasing so requested/medicated with Dilaudid rather than Ibuprofen. GENE dressing to right knee is CDI and functioning; has rodolfo wrap over GENE dressing. CMS is intact. Requested to have SCD's removed at this time and will allow them to be put back on when given 0300 dose of Vancomycin. Fall risk score is high so bed alarm is activated.
[2018-01-10] MEDS: VANCOMYCIN 750 MG/150 ML FROZ.PIGGY 150 MG IV ×2 (03:04→20:02)
[2018-01-10 03:15] VITALS: BP 142/67; PULSE 64; RESP 17; TEMP 36.4; O2SAT 95
[2018-01-10] MEDS: IBUPROFEN 600 MG TABLET PO (06:51)
[2018-01-10 07:25] VITALS: BP 149/68; PULSE 79; RESP 15; TEMP 36.7; O2SAT 96
[2018-01-10] MEDS: DOCUSATE 100 MG CAPSULE PO ×2 (08:09→20:03)
[2018-01-10] MEDS: ASPIRIN EC 81 MG TABLET PO ×2 (08:09→20:03)
[2018-01-10 11:25] VITALS: BP 150/87; PULSE 83; RESP 16; TEMP 36.7; O2SAT 97
--- NOTE | 2018-01-10 12:43 | PT.IPTN ---
Current Diagnoses Essential (primary) hypertension (01/07/18) Unspecified urinary incontinence (01/07/18) Presence of right artificial knee joint (01/07/18) Presence of unspecified artificial knee joint (01/07/18) Surgery Performed Operation Date: 01/07/18 07:45 Actual Procedures p Total Knee Arthroplasty Revision(Right) - Brian Sampson MD Physical Therapy Treatment Note M2 PT-IP Current Condition Start: 01/07/18 17:48 Freq: NEEDED Status: Active Protocol: Document 01/07/18 15:06 DLM (Rec: 01/07/18 18:00 DLM [id number]) Physical Therapy Current Condition Current Condition Evaluation Date 01/07/18 Treatment Diagnosis right TKA revision, impaired gait Onset Date 01/07/18 Weight Bearing Status Weight Bearing Status Weight Bear as Tolerated M3 PT-IP Subjective Start: 01/07/18 17:48 Freq: NEEDED Status: Active Protocol: Document 01/10/18 11:00 CLB (Rec: 01/10/18 12:43 CLB [id number]) Subjective Physical Therapy Visit Type Type Treatment Note Visit Start Time 11:00 Visit Stop Time 11:17 Total Visit Minutes 17 Number of LABOR MEDIATOR Visits 5 Physical Therapy Visit Comments Patient Comments Pt states she is feeling better today. Therapy Pain Assessment Pain When Pain Assessed At Rest Pain Present Pain Present Pain Reported Location Right Knee Intensity 5 Scale Used Numeric (1 - 10) Pain Management Techniques Apply Cold Re-positioning M4 PT-IP Mobility and Gait Start: 01/07/18 17:48 Freq: NEEDED Status: Active Protocol: Document 01/10/18 11:00 CLB (Rec: 01/10/18 12:43 CLB [id number]) PT-Bed Mobility Assessment Sit to Supine Sit to Supine Contact Guard Assistance 1 Person Assistance Scooting Scooting to Edge of Bed Contact Guard Assistance PT-Transfer Assessment Sit to and From Stand Sit to and from Stand Contact Guard Assistance Equipment Transfer Assistive Device Gait Belt Front Wheeled Walker Orthotic/Prosthetic Devices or Brace: No Transfers Transfer Destination Chair Transfer Ability Level of Assist Contact Guard Assistance Gait Assessment Gait Gait Assistance Required: Contact Guard Assist Distance (Feet) 100 Able to Maintain Weight Bearing Status Yes During Gait Assistive Devices Assistive Device Gait Belt Front Wheeled Walker Orthotic/Prosthetic Devices or Brace: No Gait Deviations General Gait Pattern Antalgic Factors Limiting Gait Function Factors Limiting Gait Function Decreased Sensation Limited Range of Motion Pain M5 PT-IP Objective Assessments Start: 01/07/18 17:48 Freq: NEEDED Status: Active Protocol: Document 01/07/18 15:06 DLM (Rec: 01/07/18 18:00 DLM [id number]) Orientation Orientation/Cognition Level of Alertness Alert Orientation Name Age Birthday Month Date Year Day of Week Place Situation Language Function Ability No Deficits Noted Safety Awareness Understands Safety Issues Memory Description No Deficits Noted Gross Range of Motion Upper Extremity ROM Assessment Within Functional Limits Lower Extremity ROM Assessment Right Impaired Impairments pain limits movement of right knee, poor tolerance for flexion today (about 20 degrees), tolerating full extension well Strength Upper Extremity Strength Assessment Within Functional Limits Lower Extremity Strength Assessment Right Impaired Hip need assist to lift right LE off bed Knee pain with quad set, unable to functionally flex at this time Ankle good active movement of ankle Comments Strength Comments rodolfo wrap on right knee area Coordination Assessment Gross Coordination Gross Coordination WNL Sensation Assessment Sensation Gross Sensation WNL Muscle Tone Muscle Tone WNL Yes M6 PT-IP Treatment Start: 01/07/18 17:48 Freq: NEEDED Status: Active Protocol: Document 01/10/18 11:00 CLB (Rec: 01/10/18 12:43 CLB [id number]) Physical Therapy Treatment Exercises Exercises Ankle Pumps Quad Sets Heel Slides Seated Knee Flexion/Extension Education Education Provided Safety Other Treatments Other Treatment Performed AA SLR M7 PT-IP Assessment and Plan Start: 01/07/18 17:48 Freq: NEEDED Status: Active Protocol: Document 01/10/18 11:00 CLB (Rec: 01/10/18 12:43 CLB [id number]) PT Summary Assessment and Plan Summary Assessment Summary Pt improving with gait and is able to increase WB on RLE with less pain. Pt able to flex knee in seated heel slide to 85 degrees. Goals Bed Mobility Goal Independent Transfer Goal Standby Assistance Gait Goal Standby Assistance Front Wheel Walker Gait Distance 60 feet Other Goals up and down 5 steps with rails and min assist Days to Meet Goals 3 Frequency of Treatment Frequency Of Treatment Twice a Day Recommendations To Nursing Amount of Assist Needed 1 Person Assist Discharge Recommendations PT Discharge Recommendations SNF Rehab
[2018-01-10] MEDS: ACETAMINOPHEN 325 MG TABLET 975 MG PO ×3 (12:45→20:03)
[2018-01-10] MEDS: SENNOSIDES 8.6 MG TABLET 17.2 MG PO (12:45)
[2018-01-10] MEDS: SODIUM CHLORIDE 0.9% FLUSH 10 ML IV ×2 (12:46→20:03)
[2018-01-10] MEDS: VANCOMYCIN 750 MG/150 ML FROZ.PIGGY 100 MG IV (13:14)
--- NOTE | 2018-01-10 13:36 | PM.PN.1 ---
Subjective Date Patient Seen: 01/10/18 Time Patient Seen: 13:36 Interval history: She is making steady progress with physical therapy. She was able to ambulate some in the [place]. She lives alone and will need a alf for rehab. She does not feel quite ready for discharge today. Exam Vital Signs (past 8 hours): - 01/10/18 07:25 01/10/18 11:25 Temperature 98.1 F 98.1 F Pulse Rate 79 83 Respiratory Rate 15 16 Blood Pressure 149/68 H 150/87 H Pulse Oximetry 96 97 Oxygen Delivery Method Room Air Oxygen Flow Rate 0 Narrative Exam Narrative: Her calf is soft, she has a weak straight leg raise, she has moderate pain with gentle range of motion in her knee, her dressings intact. She is alert she is oriented and appears to be comfortable resting in a chair Objective Labs Result Diagrams: 01/08/18 05:15 01/07/18 12:26 Labs: Laboratory Results - last 24 hr 01/09/18 18:35 Vancomycin Trough 12.0 Assessment & Plan Plan: Assessment/Plan Narrative: Doing well status post a revision total knee arthroplasty. Continue with physical therapy and anticipate discharge to [facility] tomorrow.
--- NOTE | 2018-01-10 13:39 | P.PN_ITS ---
Subjective Date Patient Seen: 01/10/18 Time Patient Seen: 13:36 Interval history: She is making steady progress with physical therapy. She was able to ambulate some in the [place]. She lives alone and will need a f[facility] for rehab. She does not feel quite ready for discharge today. Exam Vital Signs (past 8 hours): - 01/10/18 07:25 01/10/18 11:25 Temperature 98.1 F 98.1 F Pulse Rate 79 83 Respiratory Rate 15 16 Blood Pressure 149/68 H 150/87 H Pulse Oximetry 96 97 Oxygen Delivery Method Room Air Oxygen Flow Rate 0 Narrative Exam Narrative: Her calf is soft, she has a weak straight leg raise, she has moderate pain with gentle range of motion in her knee, her dressings intact. She is alert she is oriented and appears to be comfortable resting in a chair Objective Labs Result Diagrams: 01/08/18 05:15 01/07/18 12:26 Labs: Laboratory Results - last 24 hr 01/09/18 18:35 Vancomycin Trough 12.0 Assessment & Plan Plan: Assessment/Plan Narrative: Doing well status post a revision total knee arthroplasty. Continue with physical therapy and anticipate discharge to [facility] tomorrow.
[2018-01-10 15:00] VITALS: BP 145/67; PULSE 76; RESP 16; TEMP 36.8; O2SAT 96
--- NOTE | 2018-01-10 15:31 | PT.IPTN ---
Current Diagnoses Essential (primary) hypertension (01/07/18) Unspecified urinary incontinence (01/07/18) Presence of right artificial knee joint (01/07/18) Presence of unspecified artificial knee joint (01/07/18) Surgery Performed Operation Date: 01/07/18 07:45 Actual Procedures p Total Knee Arthroplasty Revision(Right) - Brian Sampson MD Physical Therapy Treatment Note M2 PT-IP Current Condition Start: 01/07/18 17:48 Freq: NEEDED Status: Active Protocol: Document 01/07/18 15:06 DLM (Rec: 01/07/18 18:00 DLM [id number]) Physical Therapy Current Condition Current Condition Evaluation Date 01/07/18 Treatment Diagnosis right TKA revision, impaired gait Onset Date 01/07/18 Weight Bearing Status Weight Bearing Status Weight Bear as Tolerated M3 PT-IP Subjective Start: 01/07/18 17:48 Freq: NEEDED Status: Active Protocol: Document 01/10/18 14:55 CLB (Rec: 01/10/18 15:31 CLB [id number]) Subjective Physical Therapy Visit Type Type Treatment Note Visit Start Time 14:55 Visit Stop Time 15:20 Total Visit Minutes 25 Number of BUSINESS ASSOCIATE Visits 6 Physical Therapy Visit Comments Patient Comments Pt willing to do therapy. Therapy Pain Assessment Pain When Pain Assessed During Mobility Pain Present Pain Present Pain Reported Location Right Knee Intensity 5 Scale Used Numeric (1 - 10) Pain Management Techniques Apply Cold Re-positioning M4 PT-IP Mobility and Gait Start: 01/07/18 17:48 Freq: NEEDED Status: Active Protocol: Document 01/10/18 14:55 CLB (Rec: 01/10/18 15:31 CLB [id number]) PT-Bed Mobility Assessment Sit to Supine Sit to Supine Minimal Assistance PT-Transfer Assessment Sit to and From Stand Sit to and from Stand Contact Guard Assistance Equipment Transfer Assistive Device Gait Belt Front Wheeled Walker Orthotic/Prosthetic Devices or Brace: No Transfers Transfer Destination Bed Toilet Transfer Ability Level of Assist Contact Guard Assistance Comments Mobility Comments Pt needed Min A of RLE into bed. Pt able to perform all pericare. Gait Assessment Gait Gait Assistance Required: Standby Assistance 1 Person Assist Distance (Feet) 125 Able to Maintain Weight Bearing Status Yes During Gait Assistive Devices Orthotic/Prosthetic Devices or Brace: No Gait Deviations General Gait Pattern Antalgic Factors Limiting Gait Function Factors Limiting Gait Function Decreased Sensation Limited Range of Motion Pain Comments Gait Comments Pt increased terri with ambulation. M5 PT-IP Objective Assessments Start: 01/07/18 17:48 Freq: NEEDED Status: Active Protocol: Document 01/07/18 15:06 DLM (Rec: 01/07/18 18:00 DLM [id number]) Orientation Orientation/Cognition Level of Alertness Alert Orientation Name Age Birthday Month Date Year Day of Week Place Situation Language Function Ability No Deficits Noted Safety Awareness Understands Safety Issues Memory Description No Deficits Noted Gross Range of Motion Upper Extremity ROM Assessment Within Functional Limits Lower Extremity ROM Assessment Right Impaired Impairments pain limits movement of right knee, poor tolerance for flexion today (about 20 degrees), tolerating full extension well Strength Upper Extremity Strength Assessment Within Functional Limits Lower Extremity Strength Assessment Right Impaired Hip need assist to lift right LE off bed Knee pain with quad set, unable to functionally flex at this time Ankle good active movement of ankle Comments Strength Comments rodolfo wrap on right knee area Coordination Assessment Gross Coordination Gross Coordination WNL Sensation Assessment Sensation Gross Sensation WNL Muscle Tone Muscle Tone WNL Yes M6 PT-IP Treatment Start: 01/07/18 17:48 Freq: NEEDED Status: Active Protocol: Document 01/10/18 14:55 CLB (Rec: 01/10/18 15:31 CLB [id number]) Physical Therapy Treatment Exercises Exercises Ankle Pumps Quad Sets Heel Slides Seated Knee Flexion/Extension Education Education Provided Safety Other Treatments Other Treatment Performed AA SLR M7 PT-IP Assessment and Plan Start: 01/07/18 17:48 Freq: NEEDED Status: Active Protocol: Document 01/10/18 14:55 CLB (Rec: 01/10/18 15:31 CLB [id number]) PT Summary Assessment and Plan Summary Assessment Summary Pt continues to tolerate gait and ther ex. Goals Bed Mobility Goal Independent Transfer Goal Standby Assistance Gait Goal Standby Assistance Front Wheel Walker Gait Distance 60 feet Other Goals up and down 5 steps with rails and min assist Days to Meet Goals 3 Frequency of Treatment Frequency Of Treatment Twice a Day Recommendations To Nursing Amount of Assist Needed 1 Person Assist Discharge Recommendations PT Discharge Recommendations SNF Rehab
[2018-01-10 23:40] VITALS: BP 150/80; PULSE 78; RESP 16; TEMP 36.6; O2SAT 97
[2018-01-11] MEDS: SODIUM CHLORIDE 0.9% FLUSH 10 ML IV ×2 (02:28→09:46)
[2018-01-11] MEDS: SODIUM CHLORIDE 0.9% 250 ML 21 ML IV (02:29)
[2018-01-11] MEDS: VANCOMYCIN 750 MG/150 ML FROZ.PIGGY 150 MG IV (02:29)
[2018-01-11 04:00] VITALS: BP 147/67; PULSE 75; RESP 18; TEMP 36.3; O2SAT 96
[2018-01-11] MEDS: IBUPROFEN 600 MG TABLET PO (04:13)
--- NOTE | 2018-01-11 07:27 | PM.DS.1 ---
History of Present Illness Date Patient Seen: 01/11/18 Time Patient Seen: 07:27 Chief complaint: TOTAL KNEE REPLACEMENT [id number] Narrative: The patient presents today for revision of loose right total knee arthroplasty. Initial evaluation shows no evidence of loosening. The nature of the procedure including the risks and benefits, alternatives, postoperative course and expected outcome were discussed and all questions answered. Consent was obtained. Operative site confirmed and marked. Patient was seen bedside. 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 Sampson on 01/07/18. Patient tolerated procedure well with no major complications. Patient transferred to the floor and seen by physical therapy who recommended she be discharge to SNF with outpatient PT. Her pain is was well controlled with Dilaudid and Tylenol. Patient is stable and ready for discharge on 01/11/18. Calfs are non tender, soft and compressible bilaterally. R knee dressing CDI. Status at Discharge Functional status at discharge: uses cane/walker Overall status at discharge: patient is progressing back to baseline Time Spent with Patient Less than 30 minutes Exam Vital Signs (past 8 hours): - 01/10/18 23:40 01/11/18 04:00 Temperature 97.8 F 97.3 F L Pulse Rate 78 75 Respiratory Rate 16 18 Blood Pressure 150/80 H 147/67 H Pulse Oximetry 97 96 Oxygen Delivery Method Room Air Oxygen Flow Rate 0 Narrative Exam Narrative: Patient is AOx3. She is laying in bed comfortably without any signs of distress. Radial and dorsalis pedis pulses 2+ and symmetric. Sensation to light touch intact in the LE bilaterally. No neurological deficit noted. Muscle strength 5/5 in dorsiflexion, plantarflexion and reset merchandiser. DVT compression devices noted on LE bilaterally. Calfs are soft, non tender and compressible bilaterally. R knee dressing is CDI. Patient denies any fever, chills, vomiting, nausea, SOB or chest pain. Patient lives alone and would like to be discharged to SNF. Objective Labs Result Diagrams: 01/08/18 05:15 01/07/18 12:26 Discharge Plan Discharge Plan Patient Disposition: SNF Transfer to: [facility] I certify the postop hospital usp care is medically necessary on a continuing basis for any conditions for which he/ she received care during this hospitalization.: Yes The receiving facility has agreed to accept transfer and provide medical treatment.: Yes Discharge Med Rec/Prescriptions Prescriptions: New hydromorphone 2 mg Tablet 2 mg PO Q4-6H PRN (Reason: Pain, Severe (7-10)) 2 Days Qty: 8 RF: 0 aspirin 81 mg Tablet,Delayed Release (Dr/Ec) 81 mg PO BID Qty: 0 RF: 0 docusate sodium 100 mg Capsule 100 mg PO BID Qty: 0 RF: 0 ibuprofen 600 mg Tablet 600 mg PO Q6HR PRN (Reason: As Needed For Fever/Mild Pain) Qty: 0 RF: 0 Continue acetaminophen [Tylenol Extra Strength] 500 mg Tablet 1,000 mg PO TID RF: 0 Follow up/Referrals: Andry Ferguson MD [Primary Care Provider] - Brian Sampson MD [Physician] - 1 Week (Follow up at [facility] [place] with Dr. Sampson at scheduled appointment. ) Provider Discharge Instructions Diet: Diet as Tolerated Activity: Weight bearing as tolerated on R knee. Use cane/walker until cleared by PT. Cold/Heat Therapy: Cold compress as needed. Skin/Wound/Dressing Care Report to your healthcare provider any signs of infection, such as:: chills, fever, night sweats, increased pain and unusual drainage Dressing: Keep clean and dry [facility] Reason for rehabilitation: Post-operative therapy Rehab type: Physical therapy Visit Report/Discharge Packet Instructions: DI for Knee Replacement Discharge Data Primary Care Provider: Andry Ferguson Attending Provider: Brian Sampson Admit Date/Time: 01/07/18 06:31 Discharges patient from system. Discharge Date/Time: 01/11/18 11:45
--- NOTE | 2018-01-11 07:37 | P.DS_ITS ---
History of Present Illness Date Patient Seen: 01/11/18 Time Patient Seen: 07:27 Chief complaint: TOTAL KNEE REPLACEMENT [id number] Narrative: The patient presents today for revision of loose right total knee arthroplasty. Initial evaluation shows no evidence of loosening. The nature of the procedure including the risks and benefits, alternatives, postoperative course and expected outcome were discussed and all questions answered. Consent was obtained. Operative site confirmed and marked. Patient was seen bedside. 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 Sampson on 01/07/18. Patient tolerated procedure well with no major complications. Patient transferred to the floor and seen by physical therapy who recommended she be discharge to SNF with outpatient PT. Her pain is was well controlled with Dilaudid and Tylenol. Patient is stable and ready for discharge on 01/11/18. Calfs are non tender, soft and compressible bilaterally. R knee dressing CDI. Status at Discharge Functional status at discharge: uses cane/walker Overall status at discharge: patient is progressing back to baseline Time Spent with Patient Less than 30 minutes Exam Vital Signs (past 8 hours): - 01/10/18 23:40 01/11/18 04:00 Temperature 97.8 F 97.3 F L Pulse Rate 78 75 Respiratory Rate 16 18 Blood Pressure 150/80 H 147/67 H Pulse Oximetry 97 96 Oxygen Delivery Method Room Air Oxygen Flow Rate 0 Narrative Exam Narrative: Patient is AOx3. She is laying in bed comfortably without any signs of distress. Radial and dorsalis pedis pulses 2+ and symmetric. Sensation to light touch intact in the LE bilaterally. No neurological deficit noted. 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 DVT compression devices noted on LE bilaterally. Calfs are soft, non tender and compressible bilaterally. R knee dressing is CDI. Patient denies any fever, chills, vomiting, nausea, SOB or chest pain. Patient lives alone and would like to be discharged to SNF. Objective Labs Result Diagrams: 01/08/18 05:15 01/07/18 12:26 Discharge Plan Discharge Plan Patient Disposition: SNF Transfer to: [facility] I certify the postop hospital intermediate care is medically necessary on a continuing basis for any conditions for which he/ she received care during this hospitalization.: Yes The receiving facility has agreed to accept transfer and provide medical treatment.: Yes Discharge Med Rec/Prescriptions Prescriptions: New hydromorphone 2 mg Tablet 2 mg PO Q4-6H PRN (Reason: Pain, Severe (7-10)) 2 Days Qty: 8 RF: 0 aspirin 81 mg Tablet,Delayed Release (Dr/Ec) 81 mg PO BID Qty: 0 RF: 0 docusate sodium 100 mg Capsule 100 mg PO BID Qty: 0 RF: 0 ibuprofen 600 mg Tablet 600 mg PO Q6HR PRN (Reason: As Needed For Fever/Mild Pain) Qty: 0 RF: 0 Continue acetaminophen [Tylenol Extra Strength] 500 mg Tablet 1,000 mg PO TID RF: 0 Follow up/Referrals: Andry Ferguson MD [Primary Care Provider] - Brian Sampson MD [Physician] - 1 Week (Follow up at [facility] with Dr. Sampson at scheduled appointment. ) Provider Discharge Instructions Diet: Diet as Tolerated Activity: Weight bearing as tolerated on R knee. Use cane/walker until cleared by PT. Cold/Heat Therapy: Cold compress as needed. Skin/Wound/Dressing Care Report to your healthcare provider any signs of infection, such as:: chills, fever, night sweats, increased pain and unusual drainage Dressing: Keep clean and dry [facility] Reason for rehabilitation: Post-operative therapy Rehab type: Physical therapy Visit Report/Discharge Packet Instructions: DI for Knee Replacement Discharge Data Primary Care Provider: Andry Ferguson Attending Provider: Brian Sampson Admit Date/Time: 01/07/18 06:31 Discharges patient from system. Discharge Date/Time: 01/11/18 11:45
[2018-01-11 08:00] VITALS: BP 146/74; PULSE 75; RESP 15; TEMP 36.9; O2SAT 93
--- NOTE | 2018-01-11 08:48 | PC.NURSE ---
Addendum entered by Shakira Tate R.N. 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
[2018-01-11] MEDS: ASPIRIN EC 81 MG TABLET PO (09:45)
[2018-01-11] MEDS: ACETAMINOPHEN 325 MG TABLET 975 MG PO (09:45)
[2018-01-11] MEDS: DOCUSATE 100 MG CAPSULE PO (09:46)
[2018-01-11] MEDS: SENNOSIDES 8.6 MG TABLET 17.2 MG PO (09:46)
--- NOTE | 2018-01-11 10:45 | CM.DPC ---
DCP Cont: Spoke to PA seeing patient today from orthopedics, that patient is to be discharged today, and is aware that [facility] is the plan. Met with patient, daughterMaine, in room, and is aware of discharge. Spoke to Iris at [facility], and patient is to be picked up at 11:30. Daughter, patient, and nurse is aware, med orders signed. PASSR and med list faxed. Daughter, [place], asked if this manager of case management had spoken to Dr. Renteria regarding home plan. Let her know that message was left last Thursday, with daughter's concern. Let her know that [facility] could help with this also, upon discharge. She stated that she would go ahead and get in touch with Dr. Renteria to discuss this anyway. P: Patient is to be discharged to [facility] today. They are to transport. Mikki Murrieta RN/Wet Process Head Miller
--- NOTE | 2018-01-11 11:42 | PT.IPTN ---
Current Diagnoses Essential (primary) hypertension (01/07/18) Unspecified urinary incontinence (01/07/18) Presence of right artificial knee joint (01/07/18) Presence of unspecified artificial knee joint (01/07/18) Surgery Performed Operation Date: 01/07/18 07:45 Actual Procedures p Total Knee Arthroplasty Revision(Right) - Brian Sampson MD Physical Therapy Treatment Note Physical Therapy Current Condition Current Condition Evaluation Date 01/07/18 Treatment Diagnosis right TKA revision, impaired gait Onset Date 01/07/18 Weight Bearing Status Weight Bearing Status Weight Bear as Tolerated Subjective Physical Therapy Visit Type Type Treatment Note Visit Start Time 08:30 Visit Stop Time 09:00 Total Visit Minutes 30 Physical Therapy Visit Comments Patient Comments Pt reports feeling great relative to before the surgery . Therapy Pain Assessment Pain When Pain Assessed At Rest Pain Present Pain Present Denied Pain PT-Transfer Assessment Sit to and From Stand Sit to and from Stand Standby Assistance Equipment Transfer Assistive Device Gait Belt Front Wheeled Walker Transfers Transfer Destination Bed Toilet Transfer Technique walked Transfer Ability Level of Assist Standby Assistance Gait Assessment Gait Gait Assistance Required: Standby Assistance 1 Person Assist Distance (Feet) 150 Able to Maintain Weight Bearing Status Yes During Gait Assistive Devices Assistive Device Gait Belt Front Wheeled Walker Gait Deviations General Gait Pattern Antalgic Factors Limiting Gait Function Factors Limiting Gait Function Decreased Sensation Limited Range of Motion Pain Orientation Orientation/Cognition Level of Alertness Alert Orientation Name Age Birthday Month Date Year Day of Week Place Situation Language Function Ability No Deficits Noted Safety Awareness Understands Safety Issues Memory Description No Deficits Noted Gross Range of Motion Upper Extremity ROM Assessment Within Functional Limits Lower Extremity ROM Assessment Right Impaired Impairments pain limits movement of right knee, poor tolerance for flexion today (about 20 degrees), tolerating full extension well Strength Upper Extremity Strength Assessment Within Functional Limits Lower Extremity Strength Assessment Right Impaired Hip need assist to lift right LE off bed Knee pain with quad set, unable to functionally flex at this time Ankle good active movement of ankle Comments Strength Comments rodolfo wrap on right knee area Coordination Assessment Gross Coordination Gross Coordination WNL Sensation Assessment Sensation Gross Sensation WNL Muscle Tone Muscle Tone WNL Yes Physical Therapy Treatment Exercises Exercises Ankle Pumps Quad Sets Heel Slides Seated Knee Flexion/Extension Education Education Provided Safety PT Summary Assessment and Plan Potential Rehabilitation Potential Excellent Status of Condition at Evaluation Stable Summary Impairments Pain ROM Strength Balance Bed Mobility Transfers Gait Activity Tolerance Assessment Summary Pt continues to slowly improve with each session but is still below reported functional baseline. Pt continues to have great potential for functional improvement and will benefit from ongoing skilled PT at SNF . Pt is discharging this morning to [facility]. Pt has no other acute PT goals/needs in that timeframe, therefore, acute PT will sign off. Frequency of Treatment Frequency Of Treatment Discharge Recommendations To Nursing Amount of Assist Needed 1 Person Assist Discharge Recommendations PT Discharge Recommendations SNF Rehab
--- NOTE | 2018-01-11 11:51 | CM.DPC ---
DCP Cont: Daughter, [place], here to inquire on plan of care recommendation for patient while she is at [facility]. let daughter know that this pillowcase maker would attempt to reach out to Dr. Renteria's office again, for a message was left for them last Thursday. Patient is now being picked up by [facility]. Called Dr. Renteria's office and spoke to Ana, triage nurse, regarding patient's concerns. Let her know that she was on her way to [facility] now, but daughter wants to get referral process going now, for her home is not set up for safety, such as bars in showers. Ana stated that she would discuss this with Dr. Renteria. Asked her if she could call [place] back. Gave her phone number, stated that she would give her a call. P: Patient now being discharged to [facility] for rehab. Mikki Murrieta RN/Waste Recycler
== END 2018-01-11 11:45 | DRG 468 ==
PROVIDERS: Admitting Provider Orthopaedic Surgery; Family Provider Family Medicine; PCP Family Medicine; Visit Provider Orthopaedic Surgery
PROC: 0SPC0JZ Removal of Synthetic Substitute from Right Knee Joint, Open Approach (ICD-10-PCS; principal; 2018-01-07 07:45)
DX: T84.032A Mechanical loosening of internal right knee prosthetic joint, initial encounter (principal); I10 Essential (primary) hypertension; K21.9 Gastro-esophageal reflux disease without esophagitis; G47.33 Obstructive sleep apnea (adult) (pediatric); M25.561 Pain in right knee
CPT/HCPCS: 36415; 73560; 80202; 82565; 85014; 85018; 87070; 87205; 97110; 97116; 97162; 97530; C1776; C9290; J1100; J1170; J2250; J2405; J2704; J3370

== ENCOUNTER → 2018-04-17 10:14 | Outpatient (CLI) | payer MEDICARE, OTHER, SELFPAY ==
[2018-01-07 08:27] VITALS: BMI 39.8
--- NOTE | 2018-04-17 09:30 | DI.MG.S_ITS ---
Patient Name: MELANIE PATIOÑ date: 1940 Sex: F Attending Physician: Phyllis Indications: Date: 04/17/2018 10:49 At the request of: FENG ELIZABETH Procedure: MM screening mammo BI BILATERAL DIGITAL SCREENING MAMMOGRAM 3D/2D WITH CAD: 04/17/2018 CLINICAL: Routine screening. Comparison is made to exams dated: 03/09/2017 mammogram, 03/05/2016 mammogram, mammogram, and 09/05/2008 mammogram - [facility]. The tissue of both breasts is extremely dense, which lowers the sensitivity of mammography. Current study was also evaluated with a Computer Aided Detection (CAD) system. There are benign calcifications in both breasts. No significant masses, calcifications, or other findings are seen in either breast. There has been no significant interval change. IMPRESSION: There is no mammographic evidence of malignancy. A 1 year screening mammogram is recommended. This exam was interpreted at Station ID: [id number]. NOTE: For mammograms, a report in lay terms will be sent to the patient. Approximately 15% of breast malignancies will not be visualized mammographically. In the management of a palpable breast mass, a negative mammogram must not discourage biopsy of a clinically suspicious lesion. Electronically Signed By: Bernard paul/margie:04/17/2018 13:56:29 letter sent: Normal Exam ACR BI-RADS Category 2: Benign Finding(s) [id number]
== END ==
PROVIDERS: Family Provider Family Medicine; PCP Family Medicine; Visit Provider Family Medicine
DX: Z12.31 Encounter for screening mammogram for malignant neoplasm of breast (principal)
CPT/HCPCS: 77063; 77067

== ENCOUNTER 2018-07-19 11:38 | Observation (INO) | payer MEDICARE, OTHER, SELFPAY ==
[2018-01-07 08:27] VITALS: BMI 39.8
[2018-07-19] VITALS (17 sets, daily range): BP systolic 116–209; BP diastolic 58–93; PULSE 71–84; RESP 12–25; TEMP 36.2–37.3; O2SAT 91–100; BMI 38.7
--- NOTE | 2018-07-19 11:54 | DI.RAD.S_ITS ---
PROCEDURE: XR CHEST 1V INDICATIONS: chest pain TECHNIQUE: One view of the chest was acquired. COMPARISON: [facility], , CHEST 1 VIEW, 07/11/2013, 19:11. FINDINGS: Surgical changes and devices: Median sternotomy wires and surgical clips are seen. Lungs and pleura: Lungs are clear. No pleural effusions or pneumothorax. Mediastinum: Mediastinal contours appear normal. Heart size is enlarged. Bones and chest wall: No suspicious bony lesions. Overlying soft tissues appear unremarkable. IMPRESSION: Cardiomegaly. No acute pulmonary pathology. Dictated by: Carrington Mata M.D. on 07/19/2018 at 12:21 Approved by: Carrington Mata M.D. on 07/19/2018 at 12:21
[2018-07-19 12:05] LABS: Add Manual Diff / Slide Review NO; Basophils Absolute Auto 100 /uL (0-100); Basophils Percent Auto 1.5 % (0-2); Eosinophils Absolute Auto 300 /uL (0-450); Eosinophils Percent Auto 3.4 % (2-4); Hematocrit 44.6 % (36-46); Hemoglobin 14.9 g/dL (12.0-16.0); Lymphocytes Absolute Auto 2200 /uL (1100-4500); Lymphocytes Percent Auto 29.6 % (25-40); Mean Corpuscular HGB Conc 33.3 % (30-36); Mean Corpuscular Hemoglobin 26.8 PG (26-34); Mean Corpuscular Volume 80.4 fL (80-100); Monocytes Absolute Auto 400 /uL (0-900); Monocytes Percent Auto 5.8 % (3-14); Neutrophils Absolute Auto 4500 /uL (1500-7000); Neutrophils Percent Auto 59.7 % (50-75); Platelet Count 209 X10^3/uL (150-400); Red Blood Cell Count 5.54 X10^6/uL (4.0-5.2); Red Cell Distribution Width 16.8 % (11.6-14.8); White Blood Cell Count 7.5 X10^3/uL (4.5-11.0)
[2018-07-19 12:10] LABS: Prothrombin Time 11.4 SECONDS (10.1-12.7)
[2018-07-19 12:12] LABS: PTT Partial Thromboplastin Tim 31 SECONDS (26.4-36.2)
[2018-07-19 12:14] LABS: Alanine Aminotransferase 29 IU/L (9-52); Albumin 4.8 g/dL (3.5-5.0); Albumin Globulin Ratio 1.5 (1.0-2.8); Alkaline Phosphatase 68 U/L (38-126); Aspartate Aminotransferase 25 IU/L (14-36); BUN Creatinine Ratio 24.3 (6-22); Blood Urea Nitrogen 17 mg/dL (7-17); Calcium 9.2 mg/dL (8.4-10.2); Carbon Dioxide 27 mmol/L (22-32); Chloride 102 mmol/L (98-107); Creatine Kinase 94 U/L (30-135); Estimated Glomerular Filt Rate > 60.0 mL/min (>60); Globulin 3.3 g/dL (1.7-4.1); Glucose 95 mg/dL (80-110); HEMOLYSIS 19 (0-50); Lipase 66 U/L (23-300); Potassium 3.8 mmol/L (3.4-5.1); Sodium 139 mmol/L (137-145); Total Protein 8.1 g/dL (6.3-8.2)
[2018-07-19 12:25] LABS: Troponin I < 0.012 ng/mL (0.01-0.034)
--- NOTE | 2018-07-19 12:43 | ED.ARRPALP ---
HPI - Arrhythmia/Palpitations General Chief Complaint: Arrhythmia/Palpitations Stated Complaint: heart is racing, numbness left arm, chest pressure Time Seen by Provider: 07/19/18 12:43 Source: patient Mode of arrival: ambulatory Limitations: no limitations History of Present Illness HPI narrative: This is a 77-year-old female comes in with complaint of a sensation like occasionally she is having a heart beat in her chest but also a little bit of pressure. She states feels like CT is sitting on her chest. Does not feel like weight very heavy like an elephant. She states sometimes she will wake up at night and feels very anxious and scared she does wear CPAP machine. She denies any shortness of breath. She states she does have the sensation she wants to try to cough to relieve that feeling she has felt a little bit lightheaded including this morning. She denies any clamminess or diaphoresis. She denies any nausea no vomiting no diarrhea or constipation no swelling in her lower extremities. She has been a little bit more tired lately. She states that she seems to notice a little bit more frequently at night. She did use to take medication for hypertension she states she lost some weight and has some issues with her potassium level so they stopped her blood pressure medication. She also has issues with her cholesterol. She states she does not take any medications, she occasionally uses Elisabet-Santaquin. She is not on the aspirin regularly. She has had her thymus as well as both her knees replaced and 2 times on the right. She denies any tobacco, occasional alcohol, no illicit. She did fly on June 24 back from a trip to [facility] to [facility] to visit her sister who had leukemia. The rest of her family history she has had multiple family members that have from coronary artery disease but they were in their 90s to 70's. Related Data Home Medications Medication Instructions Recorded Confirmed Respironics Dreamstation CPAP #1 ea 07/01/18 07/19/18 Allergies Allergy/AdvReac Type Severity Reaction Status Date / Time oxycodone [OXYCODONE] Allergy Severe ANAPHYLAXIS Verified 07/19/18 11:54 iodine Allergy Mild Rash Verified 07/19/18 11:54 Topical only per pt silver Allergy Mild itchy red Verified 07/19/18 11:54 [From Tegaderm AG Mesh] rash celecoxib [From Celebrex] AdvReac Severe GERD, Verified 07/19/18 11:54 Palpitations Review of Systems Review of Systems ROS Unobtainable: All systems reviewed & are unremarkable except as noted in HPI and below Constitutional Denies chills, Denies excessive sweating, Denies fever(s), Denies lethargy, Denies weakness and Reports other (fatigue) ENT Ears, Nose, Mouth, and Throat: Denies nasal congestion Cardiovascular Reports chest pain, Denies chest pain with activity, Denies diaphoresis, Denies syncope, Denies edema, Denies irregular heart rhythm, Denies leg edema, Reports lightheadedness, Denies radiating jaw, neck or arm pain, Denies palpitations, Denies dyspnea, Denies dyspnea on exertion and Denies orthopnea Respiratory Denies chest congestion, Denies cough, Denies excessive phlegm production, Denies pain on inspiration, Denies dyspnea, Denies dyspnea on exertion and Denies wheezing Gastrointestinal Gastrointestinal: Denies abdominal pain, Denies change in bowel habits, Denies diarrhea, Denies nausea and Denies vomiting Genitourinary Denies urinary frequency, Denies dysuria, Denies urinary incontinence and Denies urinary urgency Musculoskeletal Denies back pain and Denies other (leg swelling) Integumentary/Breasts Denies erythema and Denies rash Neurologic Denies syncope and Denies weakness Endocrine Denies excessive sweating and Denies palpitations Allergic/Immunologic Denies wheezing [facility] Medical History Anxiety (Chronic) Sleep apnea (Chronic) Hypoventilation syndrome (Chronic 2018) Trapezius muscle strain (Acute) Neuralgia (Acute) Knee pain (Chronic) Edema extremities (Acute) Paroxysmal vertigo (Acute) Upper airway resistance syndrome (Acute) Hypertension (Chronic) Hypothyroidism (Chronic) Osteoarthritis (Chronic) H/O: hysterectomy (Resolved) Overactive bladder (Resolved) Surgical History Hx of left breast biopsy (Acute) History of arthroplasty of right knee (Resolved) History of bunionectomy of right great toe (Resolved) History of left knee surgery (Resolved) Hx laparoscopic cholecystectomy (Resolved) Hx of section (Resolved) Hx of thymectomy (Resolved) Status post bilateral cataract extraction (Resolved) Social History (Updated 07/01/18 @ 16:38 by PHOENIX Jacinto) other: 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 Smoking Status: Never smoker alcohol intake: former Exam Narrative Exam Narrative: GENERAL: Alert and oriented x three, obese, well-appearing female in mild distress. HEENT: Head normocephalic, atraumatic, EOMI, pupils reactive, face symmetric, moist mucous membranes NECK: Supple, full range of motion CARDIOVASCULAR: Regular rate and rhythm without murmurs, rubs or gallops. RESPIRATORY: Breath sounds equal bilaterally, no wheezes rales or rhonchi. ABDOMEN: Soft, nontender. Normoactive bowel sounds all 4 quadrants. No guarding or rebound, rigidity, no mass : No CVA tenderness EXTREMITIES: Normal range of motion, no clubbing or edema. Neurovascularly intact NEUROLOGICAL: Cranial nerves II through XII grossly intact. Moving all extremities SKIN: Warm, dry, no petechiae, no rashes or lesions. Initial Vital Signs Initial Vital Signs: Vital Signs Temperature 98.4 F 07/19/18 11:50 Pulse Rate 80 07/19/18 11:50 Respiratory Rate 12 07/19/18 11:50 Blood Pressure 209/87 H 07/19/18 11:50 Pulse Oximetry 100 07/19/18 11:50 Scores HEART Score Heart Score history: Moderately Suspicious Heart Score EKG: Normal Heart Score Age: > or = 65 years old Heart Score risk factors: 1-2 risk factors Heart Score troponin: < or = to normal limit Heart Score Total: 4 Course Orders Ordered: ED Orders 07/19/18 11:54 XR chest 1V Stat EKG-12 Lead Stat 07/19/18 11:55 Complete Blood Count AUTO DIFF Stat Comprehensive Metabolic Panel Stat D Dimer Stat Lipase Stat Partial Thromboplastin Time Stat Prothrombin Time INR Stat Troponin & CK Cardiac Panel Stat 07/19/18 14:03 CT angio chest PE protocol Stat 07/20/18 06:00 US thyroid Routine Heparin Sodium (Porcine) (Heparin) 5,000 unit SUBCUT BID HARINI Discontinued Medications Aspirin (Aspirin Chew) 324 mg PO NOW ONE Stop: 07/19/18 13:18 Last Admin: 04/15/19 13:24 Dose: 324 mg Diphenhydramine HCl (Benadryl) 50 mg IV NOW ONE Stop: 07/19/18 14:31 Last Admin: 07/19/18 14:36 Dose: 50 mg Methylprednisolone (Solu-Medrol 125 Mg Vial) 125 mg IV NOW ONE Stop: 07/19/18 14:31 Last Admin: 07/19/18 14:36 Dose: 125 mg Nitroglycerin (Nitrostat) 0.4 mg SL NOW ONE Stop: 07/19/18 13:21 Last Admin: 07/19/18 13:24 Dose: 0.4 mg Nitroglycerin (Nitro-Bid) 0.5 inch TOP NOW ONE Stop: 07/19/18 16:08 Last Admin: 07/19/18 16:14 Dose: 0.5 inch Vital Signs - 8 hr 07/19/18 12:31 07/19/18 13:05 07/19/18 13:24 Temperature Pulse Rate 77 79 Respiratory Rate 14 Blood Pressure 188/75 H Blood Pressure [Left Arm] 173/74 H 183/93 H Pulse Oximetry 100 07/19/18 13:28 07/19/18 14:00 07/19/18 15:05 Temperature Pulse Rate 84 76 75 Respiratory Rate 19 21 Blood Pressure 147/75 H Blood Pressure [Left Arm] 152/68 H 157/67 H Pulse Oximetry 97 100 07/19/18 15:30 07/19/18 15:53 07/19/18 16:00 Temperature Pulse Rate 73 71 Respiratory Rate 24 25 H Blood Pressure Blood Pressure [Left Arm] 186/80 H 156/67 H 162/68 H Pulse Oximetry 96 95 07/19/18 16:14 07/19/18 16:30 07/19/18 17:59 Temperature 98.0 F Pulse Rate 71 75 72 Respiratory Rate 17 Blood Pressure 162/68 H 158/76 H 150/76 H Blood Pressure [Left Arm] Pulse Oximetry 95 07/19/18 18:29 07/19/18 19:11 Temperature 99.1 F Pulse Rate 80 Respiratory Rate 18 Blood Pressure 131/63 Blood Pressure [Left Arm] Pulse Oximetry 93 93 MDM - Arrhythmia/Palpitations Lab Data Attestation: I reviewed the patient's lab results. Result diagrams: 07/19/18 11:55 07/19/18 11:55 Lab Results 07/19/18 07/19/18 07/19/18 Range/Units 11:55 11:55 11:55 WBC 7.5 (4.5-11.0) X10^3/uL RBC 5.54 H (4.0-5.2) X10^6/uL Hgb 14.9 (12.0-16.0) g/dL Hct 44.6 (36-46) % MCV 80.4 (80-100) fL MCH 26.8 (26-34) PG MCHC 33.3 (30-36) % RDW 16.8 H (11.6-14.8) % Plt Count 209 (150-400) X10^3/uL Neut % (Auto) 59.7 (50-75) % Lymph % (Auto) 29.6 (25-40) % Summit % (Auto) 5.8 (3-14) % Eos % (Auto) 3.4 (2-4) % Baso % (Auto) 1.5 (0-2) % Neut # (Auto) 4500 (7336-4845) /uL Lymph # (Auto) 2200 (6250-2238) /uL Summit # (Auto) 400 (0-900) /uL Eos # (Auto) 300 (0-450) /uL Baso # (Auto) 100 (0-100) /uL PT 11.4 (10.1-12.7) SECONDS INR 1.0 (0.9-1.3) APTT 31 (26.4-36.2) SECONDS D-Dimer (<230) ng/mL Sodium 139 (137-145) mmol/L Potassium 3.8 (3.4-5.1) mmol/L Chloride 102 (98-107) mmol/L Carbon Dioxide 27 (22-32) mmol/L BUN 17 (7-17) mg/dL Creatinine 0.70 (0.52-1.04) mg/dL Estimated GFR > 60.0 (>60) mL/min BUN/Creatinine Ratio 24.3 H (6-22) Glucose 95 (80-110) mg/dL Calcium 9.2 (8.4-10.2) mg/dL Total Bilirubin 1.0 (0.2-1.3) mg/dL AST 25 (14-36) IU/L ALT 29 (9-52) IU/L Alkaline Phosphatase 68 (38-126) U/L Total Creatine Kinase 94 (30-135) U/L CK-MB (CK-2) TNP CK-MB (CK-2) Rel Index TNP Troponin I < 0.012 (0.01-0.034) ng/mL Total Protein 8.1 (6.3-8.2) g/dL Albumin 4.8 (3.5-5.0) g/dL Globulin 3.3 (1.7-4.1) g/dL Albumin/Globulin Ratio 1.5 (1.0-2.8) Lipase 66 (23-300) U/L 07/19/18 Range/Units 11:55 WBC (4.5-11.0) X10^3/uL RBC (4.0-5.2) X10^6/uL Hgb (12.0-16.0) g/dL Hct (36-46) % MCV (80-100) fL MCH (26-34) PG MCHC (30-36) % RDW (11.6-14.8) % Plt Count (150-400) X10^3/uL Neut % (Auto) (50-75) % Lymph % (Auto) (25-40) % Summit % (Auto) (3-14) % Eos % (Auto) (2-4) % Baso % (Auto) (0-2) % Neut # (Auto) (5910-2420) /uL Lymph # (Auto) (5397-3582) /uL Summit # (Auto) (0-900) /uL Eos # (Auto) (0-450) /uL Baso # (Auto) (0-100) /uL PT (10.1-12.7) SECONDS INR (0.9-1.3) APTT (26.4-36.2) SECONDS D-Dimer 749 H (<230) ng/mL Sodium (137-145) mmol/L Potassium (3.4-5.1) mmol/L Chloride (98-107) mmol/L Carbon Dioxide (22-32) mmol/L BUN (7-17) mg/dL Creatinine (0.52-1.04) mg/dL Estimated GFR (>60) mL/min BUN/Creatinine Ratio (6-22) Glucose (80-110) mg/dL Calcium (8.4-10.2) mg/dL Total Bilirubin (0.2-1.3) mg/dL AST (14-36) IU/L ALT (9-52) IU/L Alkaline Phosphatase (38-126) U/L Total Creatine Kinase (30-135) U/L CK-MB (CK-2) CK-MB (CK-2) Rel Index Troponin I (0.01-0.034) ng/mL Total Protein (6.3-8.2) g/dL Albumin (3.5-5.0) g/dL Globulin (1.7-4.1) g/dL Albumin/Globulin Ratio (1.0-2.8) Lipase (23-300) U/L Imaging Data Chest x-ray: Radiologist's impression: Chart [facility] Diagn[facility] DATE TYPE STATUS AUTHOR Hx 07/19/18 11:54 Carrington Mata 04/17/18 00:00 Bernard Matos 01/07/18 08:00 River Galeano Yadira C 77, F1940 REG ER, ED.LOC - Main ED: R06 85.5kg Arrhythmia/Palpitations Search Chart NF - Not included in interaction checking ANAPHYLAXIS Rash Topical only per pt itchy red rash GERD, Palpitations ONSET 201703/13/15 03/13/15 04/09/15 04/19/15 Today 12:31 Cierra Perez 77 F 1940 [place] [address] XRay Report Signed Patient: Lisa Perezra CMR#: [id number] : [id number]:[id number] Age/Sex: 77 / FDate of Service: 07/19/18 Loc: ED Accession Number: [id number] Procedure: XR chest 1V Ordering Provider: Winnie Beauchamp D.O. PROCEDURE: XR CHEST 1V INDICATIONS: chest pain TECHNIQUE: One view of the chest was acquired. COMPARISON: [facility], , CHEST 1 VIEW, 07/11/2013, 19:11. FINDINGS: Surgical changes and devices: Median sternotomy wires and surgical clips are seen. Lungs and pleura: Lungs are clear. No pleural effusions or pneumothorax. Mediastinum: Mediastinal contours appear normal. Heart size is enlarged. Bones and chest wall: No suspicious bony lesions. Overlying soft tissues appear unremarkable. IMPRESSION: Cardiomegaly. No acute pulmonary pathology. Dictated by: Carrington Mata M.D. on 07/19/2018 at 12:21 Approved by: Carrington Mata M.D. on 07/19/2018 at 12:21 CT scan - chest: Radiologist's impression: Anant Beauchamp DO Find Patient Imaging Cierra Perez 77 F 1940 ACTIVITY DATE EXAM STATUS AUTHOR 07/19/18 14:03 Signed Rhianna Etienne 07/19/18 11:54 Signed Carrington Mata [address] [address] [address] Scan Report Signed Patient: Cierra Perez CMR#: [id number] : [id number]:[id number] Age/Sex: 77 / FDate of Service: 07/19/18 Loc: ED Accession Number: [id number] Procedure: CT angio chest PE protocol Ordering Provider: Winnie Beauchamp D.O. PROCEDURE: CT ANGIO CHEST PE PROTOCOL INDICATIONS: chest pain, cough, recent flight to/from [facility] TECHNIQUE: After the administration of intravenous contrast, 2 mm thick sections acquired from the pulmonary apices to the posterior costophrenic angles. 3-dimensional maximum intensity projection (MIP) coronal and sagittal reformats were then acquired through the thorax. For radiation dose reduction, the following was used: automated exposure control, adjustment of mA and/or kV according to patient size. COMPARISON: None. FINDINGS: Image quality: Excellent. Pulmonary arteries: Pulmonary arteries are normal in size, and demonstrate no intraluminal filling defects to suggest central pulmonary embolism. Lungs and pleura: Lungs are clear. No pleural effusions or pneumothorax. Central and peripheral airways are patent. Mediastinum: Heart size is mildly enlarged, without pericardial effusion. No mediastinal or hilar adenopathy. Thoracic aorta is normal in caliber and enhancement. Esophagus is normal in caliber, with moderate hiatal hernia. Bones and chest wall: No suspicious bony lesions. Ribs and thoracic spine appear intact throughout. Thyroid gland is enlarged with calcifications. No axillary or supraclavicular adenopathy. Abdomen: Visualized upper abdominal solid organs appear normal in the early arterial phase of enhancement. IMPRESSION: 1. No pulmonary embolism. 2. Lungs are clear. 3. Enlarged thyroid gland with calcification. Thyroid ultrasound is recommended for further evaluation. Dictated by: Rhianna Etienne M.D. on 07/19/2018 at 15:02 Approved by: Rhianna Etienne M.D. on 07/19/2018 at 15:11 ECG Data Attestation: I personally reviewed and interpreted this ECG as follows: Prior ECG tracings: available for review Interpretation: Sinus rhythm occasional supraventricular complex. Sinus rhythm with a rate 86 P are 165, QRS of 112 and QTC of 431. Borderline left axis deviation. Nonspecific change. Patient has similar from 11/09/2017 MDM Narrative Medical decision making narrative: The patient has some symptoms that are concerning for a coronary cause. Patient's EKG does not show any clear acute changes. Nonspecific. Troponin is negative although symptoms started around 6:00 a.m. this morning. Patient does currently have some untreated hypertension as well as dyslipidemia. Her pressures are elevated here in the ER. She was given aspirin as well as nitro sublingual. Patient's chest pain resolved almost immediately with nitro. Her D-dimer was elevated, this was ordered as she has had recent long distance lytes to [facility] and back most recently on 06/24/2018. CT PE protocol is negative, there is an enlarged thyroid gland with calcification. Spoke with Dr. Mims who accepts for chest pain observation. I discussed findings CT PE was negative but thyroid changes along with lab work. Patient's story is concerning for possibly coronary artery disease. Nitropaste was applied after I spoke with Dr. Mims is patient has a chest pain returned at a 04/15. Discharge Plan Departure Patient Disposition: Admitted as Observation Clinical Impression: Chest pain, Palpitations, Enlarged thyroid Discharge Date/Time: 07/19/18 16:43 Interventions: ED Discharge Assessment Last Done: 07/19/18 16:41 Referrals: Andry Ferguson MD [Primary Care Provider] - Admit Date/Time: 07/19/18 16:04 Admit Provider: Ana M Mims
[2018-07-19] MEDS: ASPIRIN 81 MG TAB 324 MG PO (13:24)
[2018-07-19] MEDS: NITROGLYCERIN 0.4 MG SL TAB SL (13:24)
[2018-07-19 13:51] LABS: D Dimer 749 ng/mL (<230)
--- NOTE | 2018-07-19 14:03 | DI.CT.S_ITS ---
PROCEDURE: CT ANGIO CHEST PE PROTOCOL INDICATIONS: chest pain, cough, recent flight to/from [facility] TECHNIQUE: After the administration of intravenous contrast, 2 mm thick sections acquired from the pulmonary apices to the posterior costophrenic angles. 3-dimensional maximum intensity projection (MIP) coronal and sagittal reformats were then acquired through the thorax. For radiation dose reduction, the following was used: automated exposure control, adjustment of mA and/or kV according to patient size. COMPARISON: None. FINDINGS: Image quality: Excellent. Pulmonary arteries: Pulmonary arteries are normal in size, and demonstrate no intraluminal filling defects to suggest central pulmonary embolism. Lungs and pleura: Lungs are clear. No pleural effusions or pneumothorax. Central and peripheral airways are patent. Mediastinum: Heart size is mildly enlarged, without pericardial effusion. No mediastinal or hilar adenopathy. Thoracic aorta is normal in caliber and enhancement. Esophagus is normal in caliber, with moderate hiatal hernia. Bones and chest wall: No suspicious bony lesions. Ribs and thoracic spine appear intact throughout. Thyroid gland is enlarged with calcifications. No axillary or supraclavicular adenopathy. Abdomen: Visualized upper abdominal solid organs appear normal in the early arterial phase of enhancement. IMPRESSION: 1. No pulmonary embolism. 2. Lungs are clear. 3. Enlarged thyroid gland with calcification. Thyroid ultrasound is recommended for further evaluation. Dictated by: Rhianna Etienne M.D. on 07/19/2018 at 15:02 Approved by: Rhianna Etienne M.D. on 07/19/2018 at 15:11
[2018-07-19] MEDS: diphenhydrAMINE 50 MG/ML VIAL IV (14:36)
[2018-07-19] MEDS: methylPREDNISolone 125 MG/2 ML VIAL IV (14:36)
[2018-07-19] MEDS: NITROGLYCERIN OINT 1 INCH/GM OINT...G. 0.5 INCH TOP (16:14)
--- NOTE | 2018-07-19 20:03 | PM.HP.1 ---
History of Present Illness Date Patient Seen: 07/19/18 Time Patient Seen: 20:03 Chief complaint: heart is racing, numbness left arm, chest pressure Narrative: The patient is a 77-year-old female with PMH of HTN, BOUBACAR (on CPAP), obesity hypoventilation syndrome, RLS, obesity, HLD, hypothyroidism, paroxysmal vertigo, and osteoarthritis. Lifelong nonsmoker. Prior history of social alcohol use. Patient presented to the ED on 07/19/2018 out of concern for chest pressure. Chest discomfort is localized to the left anterior aspect of the chest. Characterized to have variable pressure-like sensation with discomfort level of 6/10. There was radiation to the left upper extremities, shoulder extending down to the fingers of the hand. At time of the event patient experienced a pounding sensation in her chest and felt disoriented. Patient notes experiencing sypmptoms comparable to PND that wake her up at night, specifically notes waking up with a pounding sensation in her chest. Describes a sensation of a 'fight-flight' response vs. overt dyspnea. Reports exertional dyspnea when walking up a hill. Patient also notes experiencing visual sensory disturbances but does not report associated headache or any other neurological deficits. Denies headache, diaphoresis, change in vision, dyspnea, heaviness of the extremities, dizziness, lightheadedness, syncopal events, difficulty with gait/ataxia, abdominal pain, nausea, vomiting, and. Denies starting new medications. Patient reports experiencing similar events essentially daily for the past 2 months, episodes noted occurring at least 3 times a day. Notes episodes to be of variable intensity, typically range between 2-7/10 in level of discomfort. Most of the time self-resolve within 5 minutes. At times patient coughs which she notes to also be effective in a beating the symptoms. Episode experienced earlier in the day was persistent. In ED she received ASA 324 mg and a 0.4ml of SL nitro, which seemed to relieve the pain. no prior history of HI, CVA or thrombosis. She does endorse prior history of GERD and PPI / H2 mahamed use, however has not done so recently. Also notes paroxysmal vertigo (remotely), she does not feel aforementioned symptoms are similar the vertigo symptoms. Patient has underlying history of hypertension, which has not been treated with pharmacotherapy for the past 3 years. Patient states that she has lost weight number of years ago and her blood pressure has normalized; however, slowly regained the weight back. BMI of 38.7 this hospital admission. She does have BOUBACAR and has been on CPAP therapy since 05/13. Reports adherence with the CPAP. Patient also has hyperlipidemia with most recent LDL level of 156 in June of 2017. Patient conveys her dislike for taking prescription medication and noted to be a challenge for her. Denies being on any meds prior to hospital presentation. ED Work-Up WBC 7.5 HGB 14.9 HCT 44.6 PLT 209 D-Dimer 749 TROP < 0.012 PT 11.4 INR 1.0 aPTT 31 NA 139 K 3.8 CL 102 CA 9.2 Glu 170 CO2 27 BUN 17 CR 0.7 T.BILI 1.0 AST 25 ALT 29 Alk Phos 68 LIPASE 66 EKG 07/19/2018 11:45... SR (v-rate 86 bpm) w/ occasional supraventricular premature complexes, borderline left axis deviation, moderate intraventricular conduction delay CXR... + cardiomegally, no acute pulmonary pathology CTA Chest... no PE, cardiomegaly w/o pericardial effusion, lungs clear without acute pulmonary findings, moderate hiatal hernia, enlarged thyroid gland with calcification (thyroid ultrasound is recommended) BP on presentation 209/87 Patient History Medical History Anxiety (Chronic) Sleep apnea (Chronic) Hypoventilation syndrome (Chronic 2018) Trapezius muscle strain (Acute) Neuralgia (Acute) Knee pain (Chronic) Edema extremities (Acute) Paroxysmal vertigo (Acute) Upper airway resistance syndrome (Acute) Hypertension (Chronic) Hypothyroidism (Chronic) Osteoarthritis (Chronic) H/O: hysterectomy (Resolved) Overactive bladder (Resolved) Surgical History (Updated 07/20/18 @ 02:40 by PHOENIX Mckinley) H/O thymectomy (Acute) Hx of left breast biopsy (Acute) History of arthroplasty of right knee (Resolved) History of bunionectomy of right great toe (Resolved) History of left knee surgery (Resolved) Hx laparoscopic cholecystectomy (Resolved) Hx of section (Resolved) Hx of thymectomy (Resolved) Status post bilateral cataract extraction (Resolved) Family History Mother Cardiac arrhythmia Heart failure Heart disease Social History household members: none other: 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, living in [facility] Smoking Status: Never smoker alcohol intake: former Family & Social History Family History Mother Cardiac arrhythmia Heart failure Heart disease Social History: household members none Prior Living Arrangements House other 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, living in [facility] Safety & Behavioral: Feels Safe in Current Yes Environment Been Physically Hurt or No Threatened By a Person Suicidal Ideation Description None Tobacco & Substance use: Smoking Status Never smoker alcohol intake former alcohol intake frequency 0-2 drinks per day Substance Use Type does not use Meds Home Medications Medication Instructions Recorded Confirmed Type Respironics Dreamstation CPAP #1 ea 07/01/18 07/19/18 History Allergies Allergy/AdvReac Type Severity Reaction Status Date / Time oxycodone [OXYCODONE] Allergy Severe ANAPHYLAXIS Verified 07/19/18 11:54 iodine Allergy Mild Rash Verified 07/19/18 11:54 Topical only per pt silver Allergy Mild itchy red Verified 07/19/18 11:54 [From Tegaderm AG Mesh] rash celecoxib [From Celebrex] AdvReac Severe GERD, Verified 07/19/18 11:54 Palpitations Review of Systems Review of Systems All systems reviewed & are unremarkable except as noted in HPI and below Exam Vital Signs (past 8 hours): - 07/19/18 12:31 07/19/18 13:05 07/19/18 13:24 Temperature Pulse Rate 77 79 Respiratory Rate 14 Blood Pressure 188/75 H Blood Pressure [Left Arm] 173/74 H 183/93 H Pulse Oximetry 100 07/19/18 13:28 07/19/18 14:00 07/19/18 15:05 Temperature Pulse Rate 84 76 75 Respiratory Rate 19 21 Blood Pressure 147/75 H Blood Pressure [Left Arm] 152/68 H 157/67 H Pulse Oximetry 97 100 07/19/18 15:30 07/19/18 15:53 07/19/18 16:00 Temperature Pulse Rate 73 71 Respiratory Rate 24 25 H Blood Pressure Blood Pressure [Left Arm] 186/80 H 156/67 H 162/68 H Pulse Oximetry 96 95 07/19/18 16:14 04/15/19 16:30 07/19/18 17:59 Temperature 98.0 F Pulse Rate 71 75 72 Respiratory Rate 17 Blood Pressure 162/68 H 158/76 H 150/76 H Blood Pressure [Left Arm] Pulse Oximetry 95 07/19/18 18:29 07/19/18 19:11 Temperature 99.1 F Pulse Rate 80 Respiratory Rate 18 Blood Pressure 131/63 Blood Pressure [Left Arm] Pulse Oximetry 93 93 Oxygen Delivery Method Room Air Narrative Exam Narrative: Constitutional: NAD Neurologic: AOx3, no focal neurological deficits Head: NC, AT Eyes: PERRL, EOMI, Ears: external ears normal, no otorrhea Nose: external nose normal, no rhinorrhea or epistaxis Throat: dry MM, oropharynx w/o exudate Neck: no masses, lymphadenopathy, or JVD Chest / Respiratory: equal chest rise, unlabored respiratory effort, no tachypnea, diminished Heart / CV: S1S2, ectopic beats present, no murmur Abdomen / GI: rounded, central obesity, NT, ND, + BS, no organomegaly, no suprapubic tenderness Peripheral / Vascular: warm to touch, DP and PT pulses palpable, trace b/l LE edema 1+ Musc: full ROM of upper and lower extremities, adequate muscle tone and bulk Skin: no ecchymosis or suspicious lesions / ulcers Objective Labs Result Diagrams: 07/20/18 02:24 07/20/18 02:24 Labs: Laboratory Results - last 24 hr 07/19/18 07/19/18 07/19/18 11:55 11:55 11:55 WBC 7.5 RBC 5.54 H Hgb 14.9 Hct 44.6 MCV 80.4 MCH 26.8 MCHC 33.3 RDW 16.8 H Plt Count 209 Neut % (Auto) 59.7 Lymph % (Auto) 29.6 [place] % (Auto) 5.8 Eos % (Auto) 3.4 Baso % (Auto) 1.5 Neut # (Auto) 4500 Lymph # (Auto) 2200 [place] # (Auto) 400 Eos # (Auto) 300 Baso # (Auto) 100 PT 11.4 INR 1.0 APTT 31 D-Dimer Sodium 139 Potassium 3.8 Chloride 102 Carbon Dioxide 27 BUN 17 Creatinine 0.70 Estimated GFR > 60.0 BUN/Creatinine Ratio 24.3 H Glucose 95 Calcium 9.2 Total Bilirubin 1.0 AST 25 ALT 29 Alkaline Phosphatase 68 Total Creatine Kinase 94 CK-MB (CK-2) TNP CK-MB (CK-2) Rel Index TNP Troponin I < 0.012 Total Protein 8.1 Albumin 4.8 Globulin 3.3 Albumin/Globulin Ratio 1.5 Lipase 66 07/19/18 11:55 WBC RBC Hgb Hct MCV MCH MCHC RDW Plt Count Neut % (Auto) Lymph % (Auto) [place] % (Auto) Eos % (Auto) Baso % (Auto) Neut # (Auto) Lymph # (Auto) [place] # (Auto) Eos # (Auto) Baso # (Auto) PT INR APTT D-Dimer 749 H Sodium Potassium Chloride Carbon Dioxide BUN Creatinine Estimated GFR BUN/Creatinine Ratio Glucose Calcium Total Bilirubin AST ALT Alkaline Phosphatase Total Creatine Kinase CK-MB (CK-2) CK-MB (CK-2) Rel Index Troponin I Total Protein Albumin Globulin Albumin/Globulin Ratio Lipase Assessment & Plan Assessment & Plan narrative: Acute chest pain, present on admission, active In the setting of hypertensive urgency DDx: cardiac arrhythmia, coronary spasm, GI pathology, musculoskeletal, or anxiety Multiple risk factors for cardiac or cerebrovascular events such as uncontrolled HTN, HLD, obesity, hypoventilation syndrome - Trop (-) and EKG non-ischemic, continue trending troponin elvel - Risk stratify: HLD and A1C - Stress test in am. NPO at mid-night. - Received 324 mg ASA in ED, continue 81 mg daily. - Telemetry monitoring Hypertensive urgency, acute, present on admission, active BP 209/87 on presentation w/o symptoms of acute organ damage. Treated w/ SL nitro and a nitro patch in ED. - Monitor BP closely, do not reduced BP by more than 20% in the first 24 hours; thereafter, goal SBP < 140 and DBP < 90 mmHg - BP downward trending, will monitor overnight - Consider starting on an anti-hypertensive agent in am, consider Toprol XL 25 mg QD HLD, chronic condition, present on admission, uncontrolled (LDL 156 on 06/2017), active - FLP in am - currently not on a statin, start on atorvastatin 40 mg QD Cardiomyopathy, suspected, acute, present on admission Cardiomyopathy in the setting of hypertension, potentially with acute decompensated heart failure s/s of PND, exertional dyspnea, peripheral edema, and cardiomegaly DDx: atrial fibrillation, acute heart failure, ventricular arrhytmia - echocardiogram - BNP - patient would benefit from a Cardiology consult and perhaps outpatient event monitoring Enlarged thyroid, acute on chronic, present on admission, active - abnormal findings on CTA chest, will f/u w/ thyroid U/S in am Hypothyroidism, chronic condition, present on admission, active - TSH w/ reflex (last check over 1 year ago) BOUBACAR (on CPAP), chronic condition, present on admission, stable, active - continue CPAP therapy, may use own CPAP while in hospital Full code. Patient has a health directive. Her daughter Maine is the designated DPOA. No home medications available for review. Patient does note that she does not take any antihypertensives or statins. VTE prophylaxis w/ SQ heparin. Quality VTE Deep Vein Thrombosis/Pulmonary Embolism Present on Admission: No
[2018-07-19] MEDS: HEPARIN 5,000 UNIT/ML VIAL 5000 UNIT SUBCUT (21:12)
[2018-07-20] VITALS (10 sets, daily range): BP systolic 115–146; BP diastolic 61–73; PULSE 72–84; RESP 16–18; TEMP 36.1–37.2; O2SAT 95–97
[2018-07-20 02:34] LABS: Add Manual Diff / Slide Review NO; Basophils Absolute Auto 0 /uL (0-100); Basophils Percent Auto 0.3 % (0-2); Eosinophils Absolute Auto 0 /uL (0-450); Hematocrit 41.8 % (36-46); Hemoglobin 13.9 g/dL (12.0-16.0); Lymphocytes Absolute Auto 1100 /uL (1100-4500); Lymphocytes Percent Auto 9.8 % (25-40); Mean Corpuscular HGB Conc 33.4 % (30-36); Mean Corpuscular Hemoglobin 26.7 PG (26-34); Mean Corpuscular Volume 80.1 fL (80-100); Monocytes Absolute Auto 100 /uL (0-900); Monocytes Percent Auto 0.6 % (3-14); Neutrophils Absolute Auto 9800 /uL (1500-7000); Neutrophils Percent Auto 89.3 % (50-75); Platelet Count 207 X10^3/uL (150-400); Red Blood Cell Count 5.22 X10^6/uL (4.0-5.2)
[2018-07-20 02:49] LABS: Cholesterol 226 mg/dL (140-199); HDL Cholesterol 62 mg/dL (40-60); LDL Cholesterol Calculated 149 mg/dL (<100); Magnesium 2.3 mg/dL (1.6-2.3); Triglycerides 76 mg/dL (35-150); VLDL Cholesterol Calculated 15 mg/dL (2-30)
[2018-07-20 02:50] LABS: Blood Urea Nitrogen 24 mg/dL (7-17); Calcium 9.7 mg/dL (8.4-10.2); Carbon Dioxide 24 mmol/L (22-32); Chloride 104 mmol/L (98-107); Creatine Kinase 62 U/L (30-135); Estimated Glomerular Filt Rate > 60.0 mL/min (>60); Glucose 170 mg/dL (80-110); HEMOLYSIS < 15 (0-50); Sodium 138 mmol/L (137-145)
[2018-07-20 03:01] LABS: Troponin I < 0.012 ng/mL (0.01-0.034)
[2018-07-20 03:38] LABS: TSH w/ Reflex to FT4 0.72 uIU/mL (0.47-4.68)
[2018-07-20 03:55] LABS: B Type Natriuretic Peptide < 100 (<100)
--- NOTE | 2018-07-20 06:00 | DI.US.S_ITS ---
PROCEDURE: US THYROID INDICATIONS: ENLARGED THYROID GLAND TECHNIQUE: Real-time scanning was performed of the thyroid gland, with image documentation. COMPARISON: [facility], CT, CT ANGIO CHEST PE PROTOCOL, 07/19/2018, 14:46. FINDINGS: Right: The right thyroid lobe measures 2.1 x 1.4 x 4.3 cm, and contains a medial middle third nodule which measures up to 1.2 x 1.5 cm, with peripheral calcifications. Details within this nodule therefore are very limited due to shadowing from the calcification. Left: The left thyroid lobe overall measures 1.5 x 1.5 x 4.7 cm, with 2 small nodules located in the upper third of the gland measuring up to 5 x 5 x 6 mm and 5 x 9 x 10 mm. Isthmus: 4 mm thickness, without nodule. IMPRESSION: A dominant right thyroid calcified nodule is present with the poor visualization of the internal contents of this nodule as a result of shadowing from the calcifications. A ultrasound guided fine needle aspiration cytology biopsy of this nodule may be warranted. Dictated by: Grupo Flor M.D. on 07/20/2018 at 10:19 Approved by: Grupo Flor M.D. on 07/20/2018 at 10:23
[2018-07-20 06:56] LABS: Hemoglobin A1C% w Est Avg Glu 5.7 % (4.0-6.0)
[2018-07-20 08:48] LABS: Creatine Kinase 62 U/L (30-135)
[2018-07-20 09:01] LABS: Troponin I < 0.012 ng/mL (0.01-0.034)
[2018-07-20] MEDS: HEPARIN 5,000 UNIT/ML VIAL 5000 UNIT SUBCUT ×2 (09:17→20:52)
[2018-07-20] MEDS: ASPIRIN 81 MG TAB PO (09:17)
--- NOTE | 2018-07-20 10:41 | PC.NURSE ---
Addendum entered by Autumn Nowak R.N. 07/20/18 14:05: pt has denied chest pain today. Original Note: Pt is A&ox3, she may have a stress test today with Dr. Wolf at 1200, she remains NPO. Pt had an ultrasound of her thyroid and this is now done. She is resting comfortably in bed and has been a sba to the bathroom. She voices no complaints of pain.
--- NOTE | 2018-07-20 15:55 | CM.DANOTE ---
Discharge Planning/Care Management DCP: assessment: case received, EMR reviewed and met this afternoon with pt. Introduced self and role. Pt is a 77 year old female who admitted to care of hospitalist team. Payer: Medicare and for Life Admission status: OBS/confirmed by [facility] PREM Torres PCP: was Dr. Ferguson/[facility]. He has recently retired and she is set up for first visit with Dr. Chris Mcginnis/A October 06. She is hopeful that this can be moved up now that she is in the hospital. Pt also goes to the [facility]/sees PHOENIX Lott every 6 months for followup re her CPAP.' Pt is , lives on [address]. Her daughter Maine lives in [place], is her POA. Confirmed cell : [phone]. Eleonora know she is in the hospital and is here staying at her mom's home on [address] while she is in the hospital. Pt confirms Dr. Mims wants her to stay for a stress test/planned tomorrow with Dr. Wolf, per pt. Pt is functionally independent, plans home when stable for same. DCP team will be following. CM Discharge Assessment Start: 07/20/18 15:52 Freq: Status: Active Protocol: Document 07/20/18 15:53 ITV (Rec: 07/20/18 15:55 ITV [id number]) Discharge Planning Assessment Advance Directives? Yes: dpoa/ Health care directive History Provided By Patient Medical Record Prior Living Arrangements House Household Members none Independent with ADL's Yes Is patient alert and oriented? Yes Caregiver for Another No DME Already Rented / Owned Cane Comment has multiple canes from a prior ortho surgery. Currently does not need them she says. Whiteboard Updated in Patient Room with Yes name and ext. 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
--- NOTE | 2018-07-20 17:59 | PM.PN.1 ---
Subjective Date Patient Seen: 07/20/18 Interval history: Cierra Perez is a 77-year-old female a past medical history significant for hypertension, BOUBACAR (on CPAP), obesity hypoventilation syndrome, RLS, obesity, HLD, hypothyroidism, paroxysmal vertigo, and osteoarthritis who presented for mild chest pressure and palpitations. The patient is resting in bed comfortably and in no acute distress. She denies current chest pain, pressure or palpitations. She denies headache, cough, shortness of breath, chest pain, abdominal pain, nausea, vomiting, fever, chills, dysuria, diarrhea or constipation. She is voiding and eliminating without difficulty. She is up ambulating without assistance. Exam Vital Signs (past 8 hours): - 07/20/18 10:41 07/20/18 11:50 07/20/18 14:00 Temperature 98.9 F Pulse Rate 84 Respiratory Rate 16 Blood Pressure 146/73 H Pulse Oximetry 96 96 96 07/20/18 15:35 Temperature 97.5 F L Pulse Rate 77 Respiratory Rate 17 Blood Pressure 131/61 Pulse Oximetry 96 Oxygen Delivery Method Room Air Oxygen Flow Rate 0 Narrative Exam Narrative: General: Elderly female lying in bed and in no acute distress, well-developed, well-nourished, very anxious but appropriately interactive. HEENT: Normocephalic, atraumatic. External ears without defect. Pupils equal, round, and reactive to light. Anicteric sclerae, moist conjunctivae, and no lid lag. Neck: Supple with full range of motion. No jugular venous distension. No bruits. No lymphadenopathy or thyromegaly. Cardiovascular: Regular rate and rhythm without murmurs, rubs, or gallops appreciated. Pulmonary: Clear to auscultation bilaterally without crackles, wheezes, or rhonchi. Normal respiratory effort with no use of accessory muscles. Abdomen: Soft, bowel sounds present, nontender, nondistended. No hepatosplenomegaly or masses appreciated. Extremities: No clubbing, cyanosis, or edema. Skin: Normal temperature, turgor, and texture; no rash, ulcers, or subcutaneous nodules appreciated. Neurological: Cranial nerves grossly intact. Psychiatric: Anxious mood and affect. Alert and oriented to person, place, and time. Objective Labs Result Diagrams: 07/20/18 02:24 07/20/18 02:24 Labs: Laboratory Results - last 24 hr 07/20/18 07/20/18 07/20/18 02:24 02:24 02:24 WBC 11.0 RBC 5.22 H Hgb 13.9 Hct 41.8 MCV 80.1 MCH 26.7 MCHC 33.4 RDW 17.0 H Plt Count 207 Neut % (Auto) 89.3 H D Lymph % (Auto) 9.8 L [place] % (Auto) 0.6 L Eos % (Auto) 0.0 L Baso % (Auto) 0.3 Neut # (Auto) 9800 H Lymph # (Auto) 1100 [place] # (Auto) 100 Eos # (Auto) 0 Baso # (Auto) 0 Sodium 138 Potassium 4.0 Chloride 104 Carbon Dioxide 24 BUN 24 H Creatinine 0.80 Estimated GFR > 60.0 BUN/Creatinine Ratio 30.0 H Glucose 170 H Hemoglobin A1c 5.7 Calcium 9.7 Magnesium Total Creatine Kinase 62 CK-MB (CK-2) TNP CK-MB (CK-2) Rel Index TNP Troponin I < 0.012 B-Natriuretic Peptide < 100 Triglycerides Cholesterol LDL Cholesterol, Calc VLDL Cholesterol HDL Cholesterol TSH 07/20/18 07/20/18 07/20/18 02:24 02:24 02:24 WBC RBC Hgb Hct MCV MCH MCHC RDW Plt Count Neut % (Auto) Lymph % (Auto) [place] % (Auto) Eos % (Auto) Baso % (Auto) Neut # (Auto) Lymph # (Auto) [place] # (Auto) Eos # (Auto) Baso # (Auto) Sodium Potassium Chloride Carbon Dioxide BUN Creatinine Estimated GFR BUN/Creatinine Ratio Glucose Hemoglobin A1c Calcium Magnesium 2.3 Total Creatine Kinase 62 CK-MB (CK-2) TNP CK-MB (CK-2) Rel Index TNP Troponin I < 0.012 B-Natriuretic Peptide Triglycerides 76 Cholesterol 226 H LDL Cholesterol, Calc 149 H VLDL Cholesterol 15 HDL Cholesterol 62 H TSH 0.72 Assessment & Plan Assessment & Plan narrative: Cierra Perez is a 77-year-old female a past medical history significant for hypertension, BOUBACAR (on CPAP), obesity hypoventilation syndrome, RLS, obesity, HLD, hypothyroidism, paroxysmal vertigo, and osteoarthritis who presented for mild chest pressure and palpitations. 1. Acute chest pain, present on admission, active In the setting of hypertensive urgency DDx: cardiac arrhythmia, coronary spasm, GI pathology, musculoskeletal, or anxiety Multiple risk factors for cardiac or cerebrovascular events such as uncontrolled HTN, HLD, obesity, hypoventilation syndrome - Trop (-) and EKG non-ischemic, continue trending troponin elvel -Risk stratify: Hemoglobin A1c 5.7% and indicative of early prediabetes. Fasting lipid panel demonstrated uncontrolled hyperlipidemia as below. -Nuclear medicine stress test ordered and will be performed tomorrow at noon. NPO at midnight. -Received aspirin 324 mg in ED. Continue 81 mg daily. -Continue to monitor closely on telemetry. No ectopy. 2. Acute hypertensive urgency, present on admission. Resolved. -Initial blood pressure 209/87 on presentation without symptoms of acute organ damage. Treated with sublingual nitroglycerin in ED. -Continue to monitor BP closely. Do not reduce BP by more than 20% in the first 24 hours; thereafter, goal SBP < 140 and DBP < 90 mmHg. -Blood pressure has been well controlled without antihypertensive therapy. If patient becomes hypertensive persistently will start metoprolol. 3. Suspected cardiomyopathy, chronic, present on admission. Stable. -Cardiomegaly on chest x-ray in the setting of hypertension. -DDx: atrial fibrillation, acute heart failure, ventricular arrhytmia -Patient would benefit from outpatient echocardiogram, possible cardiology consult and event monitor. 4. Hyperlipidemia, chronic, present on admission. Stable. -Fasting lipid panel demonstrated: Total cholesterol 226, triglycerides 76, LDL 149, HDL 62. -Started on atorvastatin 40 mg daily at bedtime. 5. Enlarged thyroid, chronic, present on admission. Stable. -CTA chest enlarged thyroid gland with calcification which was read demonstrated with thyroid ultrasound. Patient will need FNA outpatient. 6. Hypothyroidism, chronic, present on admission. Stable. -TSH low normal at 0.72. 7. Obstructive sleep apnea on CPAP, chronic, present on admission. Stable. -Continue home CPAP. Ordered respiratory therapy to evaluate and treat. Disposition: Likely discharge home tomorrow after nuclear medicine stress test if there is no significant pathology. Quality VTE Deep Vein Thrombosis/Pulmonary Embolism Present on Admission: No
[2018-07-20] MEDS: ATORVASTATIN 20 MG TABLET 40 MG PO (20:52)
[2018-07-21] VITALS (9 sets, daily range): BP systolic 140–176; BP diastolic 64–82; PULSE 66–77; RESP 16–17; TEMP 36.3–36.8; O2SAT 94–97
[2018-07-21] MEDS: ASPIRIN 81 MG TAB PO (09:37)
[2018-07-21] MEDS: HEPARIN 5,000 UNIT/ML VIAL 5000 UNIT SUBCUT (09:37)
--- NOTE | 2018-07-21 10:35 | PC.NURSE ---
Pt denies SOB, Chest pain, left arm or back pain. She does state that she has some congestion in her chest and sinus but no chest discomfort. She is independent in her room and had a shower, Pts tele put back on. Sitting up in her chair now and talking on the phone.
--- NOTE | 2018-07-21 11:00 | PC.NURSE ---
AUTO APPRENTICE MECHANIC: Pt is feeling anxious/nervous RN is notified
--- NOTE | 2018-07-21 12:58 | PM.TREADMILL ---
Cardiac Stress Test Report Referral & Results Date Patient Seen: 07/21/18 Time Patient Seen: 12:34 Requesting provider: Ana M Mims Indication: Chest pain Rest ECG: Unremarkable Procedure Note: Today following both written and verbal informed consent the patient was exercised according to a standard Ryan protocol patient went for a total of 4 minutes 7 seconds achieving a maximum heart rate of 125 (lots of motion artifact, this is an estimated maximal heart rate), maximum systolic blood pressure of 175. This is approximately 7.0 METS. Exercise was terminated at this point because of targets were met and patient unable to continue. Patient was also given Cardiolite through a previously started Hep-Lock IV by the non licensed nuclear equipment operator approximately 1 minute prior to the cessation of exercise. There are no ST-T segment changes Normal heart rate and blood pressure response Occasional/rare PVC Functional aerobic impairment rated-10% in the sedentary scale or 10% better than average Impression: No ECG evidence of ischemia Better than average exercise capacity Please see perfusion imaging report as well. Please note: Actual ECG tracings can be found in the PACS system.
--- NOTE | 2018-07-21 14:29 | PC.NURSE ---
Pt back from stress test. Awaiting to see the MD about her procedure and then she will be able to dishcharge home. Tele is off and pt is eating.
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
--- NOTE | 2018-07-21 17:22 | DI.NM.S_ITS ---
DATE OF SERVICE: 07/21/2018 PROCEDURE PERFORMED: Exercise treadmill stress only myocardial perfusion imaging with gating to assess ejection fraction and regional wall motion. REFERRING PROVIDER: Ana M Mims DO INDICATIONS: The patient is a 77-year-old female admitted for severe hypertension and chest discomfort. EXERCISE TREADMILL TESTING: The patient was able to exercise for a total of 4 minutes 7 seconds on a standard Ryan protocol suggesting mildly impaired exercise capacity with an NAYANA of +17% on the active scale, -5% on the sedentary scale. She achieved 7 METs. She had normal hemodynamic response to exercise, achieving a maximum heart rate of 156 bpm (109% of her predicted maximum) although this may be in overestimate because of significant motion artifact on her exercise tracings. She had no chest discomfort. Her resting ECG is normal. While her exercise tracings are corrupted by significant motion artifact, the immediate post stress recovery tracings show no significant ST segment shifts. No obvious arrhythmias were seen. At 3 minutes of exercise, at heart rate of 127 bpm, 25.5 mCi of technetium-99 Myoview was injected and the patient was imaged 15 minutes later using a gated SPECT acquisition protocol. Given the absence of any abnormalities on these images, it was felt that resting images were not needed. FINDINGS: 1. Raw Data: There is fair myocardial tracer uptake with moderate breast attenuation noted. The lung/heart ratio is normal at 0.41. 2. Quantitative Gated SPECT: Post stress ejection fraction is estimated at 67% without any focal wall motion abnormality. End-diastolic volume is normal at 104 mL. 3. Myocardial Perfusion Imaging: Post stress supine images show a fairly normal myocardial perfusion pattern with a very slight defect in the distal anteroseptum that resolves on prone imaging, consistent with breast attenuation artifact. There are no other concerning perfusion defects. CONCLUSIONS: 1. Normal myocardial perfusion study. 2. Mild perfusion defect in the distal anteroseptal that resolves on prone imaging, consistent with breast attenuation artifact. There is no compelling evidence for significant myocardial ischemia or previous myocardial infarction. 3. Normal left ventricular systolic function without any focal wall motion abnormality. 4. Mild-moderately reduced exercise capacity without angina or ECG evidence of ischemia. 5. Compared to the previous myocardial perfusion imaging study on 11/26/2009, a similar perfusion pattern is seen. She had previous breast attenuation artifact also evident on that exam as well. There has been no significant change from her previous study. Her previous ejection fraction was estimated at 76%. Chris Cierra - RAINA/christen/ doc#: [id number]/job#: [id number] dd: 07/21/2018 16:51:00 dt: 07/21/2018 17:07:00 DICTATING MD/COPIES TO: Otis Ann MD; Deepa Mims, DO COPIES MNE: SHERWIN BURGESS
--- NOTE | 2018-07-21 17:48 | PC.NURSE ---
Mary Lou shift note: Patient discharged per MD order, verbalized understanding of discharge instructions, discussed importance of F/U with PMD, new medications, and new lifestyle changes. Independently ambulatory, no c/o chest pain, dizziness, palpitations or SOB. Home with daughter [place] via private vehicle.
== END 2018-07-21 17:51 | disposition home or self-care (01) ==
LOC: ED 12:43 → AC 16:04
PROVIDERS: Nurse Practitioner Gerontology; Admitting Provider Internal Medicine; Emergency Provider Emergency Medicine; Family Provider Family Medicine; PCP Family Medicine; Referring Provider Internal Medicine; Visit Provider Internal Medicine
DX: I49.9 Cardiac arrhythmia, unspecified (principal); R07.89 Other chest pain; I16.0 Hypertensive urgency; F41.9 Anxiety disorder, unspecified; I10 Essential (primary) hypertension; E03.9 Hypothyroidism, unspecified; G47.33 Obstructive sleep apnea (adult) (pediatric); E66.9 Obesity, unspecified; E78.5 Hyperlipidemia, unspecified; E04.9 Nontoxic goiter, unspecified
CPT/HCPCS: 36415; 36591; 71045; 71275; 76536; 78451; 78452; 80048; 80053; 80061; 82550; 83036; 83690; 83735; 83880; 84443; 84484; 85025; 85379; 85610; 85730; 93005; 93010; 93016; 93017; 93018; 96372; 96374; 96375; 99284; 99285; G0378; A9502; J1200; J1644; J2930; Q9967

== ENCOUNTER → 2018-10-14 13:10 | Outpatient (CLI) | payer MEDICARE, OTHER, SELFPAY ==
[2018-07-19 18:56] VITALS: BMI 38.7
== END ==
PROVIDERS: PCP Student in an Organized Health Care Education/Training Program; Visit Provider Student in an Organized Health Care Education/Training Program
DX: Z13.820 Encounter for screening for osteoporosis (principal); M81.0 Age-related osteoporosis without current pathological fracture; Z78.0 Asymptomatic menopausal state; Z82.62 Family history of osteoporosis
CPT/HCPCS: 77080

== ENCOUNTER → 2019-02-16 13:52 | Outpatient (CLI) | payer MEDICARE, OTHER, SELFPAY ==
[2018-07-19 18:56] VITALS: BMI 38.7
[2019-02-16 14:41] LABS: Appearance Urine UA SL CLOUDY; Bilirubin Urine UA NEGATIVE (NEGATIVE); Color Urine UA ORANGE; Glucose Urine UA TRACE g/dL (Negative); Ketones Urine UA NEGATIVE (NEGATIVE); Leukocyte Esterase Urine UA 1+ (NEGATIVE); Nitrite Urine UA POSITIVE (Negative); Occult Blood Urine UA 3+ (Negative); Protein Urine UA 2+ (Negative)
[2019-02-16 14:42] LABS: pH Urine UA 6.5 (4.5-8.0)
[2019-02-16 14:56] LABS: Bacteria Urine Many (>30); RBC Urine 30-100/HPF (0-5/HPF); Squamous Epithelial Cell Urine 1-5 /HPF (0-5/HPF); WBC Urine 30-100/HPF (0-5/HPF)
[2019-02-16 14:57] LABS: Culture Indicated Urine Specimen Cultured
== END ==
PROVIDERS: PCP Student in an Organized Health Care Education/Training Program; Visit Provider Student in an Organized Health Care Education/Training Program
DX: R30.0 Dysuria (principal)
CPT/HCPCS: 81001; 87077; 87086; 87186

== ENCOUNTER → 2019-03-04 14:03 | Outpatient (CLI) | payer MEDICARE, OTHER, SELFPAY ==
[2018-07-19 18:56] VITALS: BMI 38.7
[2019-03-04 14:08] LABS: Bacteria Urine None Seen
[2019-03-04 14:36] LABS: Appearance Urine UA CLEAR; Bilirubin Urine UA NEGATIVE (NEGATIVE); Color Urine UA YELLOW; Glucose Urine UA NEGATIVE (Negative); Ketones Urine UA NEGATIVE (NEGATIVE); Leukocyte Esterase Urine UA NEGATIVE (NEGATIVE); Nitrite Urine UA POSITIVE (Negative); Occult Blood Urine UA TRACE-INTACT (Negative); Protein Urine UA TRACE (Negative); Specific Gravity Urine UA 1.015 (1.000-1.035)
[2019-03-04 14:45] LABS: pH Urine UA 5.5 (4.5-8.0)
[2019-03-04 14:58] LABS: RBC Urine 0-1/HPF (0-5/HPF)
[2019-03-04 14:59] LABS: Amorphous Sediment Urine 1+; Mucus Urine 1+ (Negative); Squamous Epithelial Cell Urine 0-1 /HPF (0-5/HPF); WBC Urine 1-5/HPF (0-5/HPF)
[2019-03-04 15:00] LABS: Culture Indicated Urine Cult Not Indicated
== END ==
PROVIDERS: PCP Student in an Organized Health Care Education/Training Program; Visit Provider Nurse Practitioner
DX: R30.0 Dysuria (principal)
CPT/HCPCS: 81001

== ENCOUNTER → 2019-04-13 10:43 | Outpatient (CLI) | payer MEDICARE, OTHER, SELFPAY ==
[2018-07-19 18:56] VITALS: BMI 38.7
--- NOTE | 2019-04-13 | DI.RAD.S_ITS ---
PROCEDURE: FL BARIUM SWALLOW W SPEECH INDICATIONS: ASPIRATION INTO AIRWAY TECHNIQUE: Examination was conducted in conjunction with speech pathology per standard protocol. In the lateral projection, filming was performed of the patient swallowing. AP projection filming may also be performed with patient swallowing. COMPARISON: [facility], , BARIUM SWALLOW, 08/30/2013, 9:18. FINDINGS: Function: The oral preparatory phase appears normal, with proper containment. The subsequent oral propulsive phase, pharyngeal phase, and esophageal phase of swallowing also appear normal with all proffered substances. No laryngotracheal penetration or aspiration. No pathologic vallecular pooling. Morphology: No cricopharyngeal bar is identified. No cervical esophageal webs. No Zenker's diverticulum. No strictures. IMPRESSION: No penetration or aspiration seen. Please also refer to the dedicated speech therapy report which will be independently generated. Dictated by: Grupo Flor M.D. on 04/13/2019 at 14:16 Approved by: Grupo Flor M.D. on 04/13/2019 at 14:17
--- NOTE | 2019-04-13 18:24 | ST.SWALLOW ---
Visit Care Team Role Provider Type Chris Mcgninis MD Attending Provider Physician Primary Care Provider Specialty: Internal Medicine Address: [address] [place] [address], [address], [place], [address] Email: [email or web address] Modified Barium Swallow Study [employer]CE Modified Barium Swallow Study Start: 04/13/19 13:45 Freq: Status: Active Protocol: Document 04/13/19 13:48 LNK (Rec: 04/13/19 18:23 LNK [id number]) Modified Barium Swallow Study Total Time Visit Start Time 11:30 Visit Stop Time 12:00 Total Visit Minutes [address] Kothari Reason for Referral dysphagia Setting Setting Outpatient Care Patient Information Identification Type Name,Date of Patient History Cierra Perez was seen for a Modified Barium Swallow Study at the referral of Dr. Kothari. according to Cierra, she has, in the past, had difficulty choking when eating. She reports that this occurred with liquids and solids. She also reported that recently she has not choked when eating. She notes that she is eating slower, chewing her foods mor and tries to avoid talking while eating. Review of records indicated that Cierra has had 2 barium swallows (2012 and 2015) which indicated a small hiatal hernia and esophageal dysmotility. Subjective Observations Cierra was seated in the fluoroscopy chair. Instructions and procedure description were provided to her. She indicated that she understood and agreed to proceed with the procedure. Cierra also stated she has a thyroid nodule on the right side of her neck, Patient Positioning Position View Lat-A/P Imaging Lateral View Textures Administered Trials Presented Thin Liquid via Spoon,Thin Liquid via Cup,Thin Liquid via Straw,Pudding Thick Liquid via Spoon,Regular Textures, Barium Tablet Oral Phase Source: MBSIMP (TM) (C) Bolus Specific Scoring Grid Lip Closure WFL Tongue Control During Bolus Hold WFL Bolus Prep/Mastication WFL Bolus Transport/Lingual Motion WFL A/P Lingual Propulsion Delay No Oral Residue WFL Nasal Regurgitation No Additional Oral Phase Observations WFL Pharyngeal Phase Source: MBSIMP (TM) (C) Bolus Specific Scoring Grid Delayed Initiation of Pharyngeal Swallow Yes: premature spillage to the valeculla Number of Seconds Delayed (seconds) ~1-2 Soft Palate Elevation WFL Tongue Base Strength/Range of Motion Mild Impairment Residue Along the Tongue Base Trace Laryngeal Elevation WFL Anterior Hyoid Movement WFL Epiglottic Range of Motion WFL Vallecular Residue Yes: Clears with spontaneous second swallow Clearance of Vallecular Residue WFL Laryngeal Vestibular Closure WFL Pharyngeal Stripping Wave WFL Posterior Pharyngeal Wall Residue Trace to minimal Clearance of Posterior Pharyngeal Wall WFL Residue Upper Esophageal Sphincter Opening WFL Residue in the Pyriform Sinuses No Esophageal Clearance Upright Position WFL Pharyngoesophageal Backflow Observed No Additional Pharyngeal Phase Observations WFL - No laryngeal penetration nor aspiration observed A/P View Textures Administered Trials Presented Segundo Liquid via Spoon,Barium Tablet A/P View Observations Pharyngeal Contraction WFL Esophageal Function Slowed Clearing Additional Observations Pt reports a history of esophageal dysmotility and hiatal hernia. Last barium swallow was 2015. Recommend referral to GI for assessment/ update Clinical Impressions Dysphagia Type No oral/pharyngeal dysphagia observed Patient Appropriate for Therapy No Recommendations
== END ==
PROVIDERS: PCP Student in an Organized Health Care Education/Training Program; Visit Provider Student in an Organized Health Care Education/Training Program
DX: R13.10 Dysphagia, unspecified (principal)
CPT/HCPCS: 74230; 92611

== ENCOUNTER → 2019-11-21 09:17 | Outpatient (CLI) | payer MEDICARE, OTHER, SELFPAY ==
[2018-07-19 18:56] VITALS: BMI 38.7
== END ==
PROVIDERS: PCP Student in an Organized Health Care Education/Training Program; Referring Provider Student in an Organized Health Care Education/Training Program; Visit Provider Student in an Organized Health Care Education/Training Program
DX: M81.0 Age-related osteoporosis without current pathological fracture (principal); Z82.62 Family history of osteoporosis
CPT/HCPCS: 77080

== ENCOUNTER → 2020-01-21 08:32 | Outpatient (CLI) | payer MEDICARE, OTHER, SELFPAY ==
[2018-07-19 18:56] VITALS: BMI 38.7
[2020-01-21 10:43] LABS: BUN Creatinine Ratio 33.3 (6-22); Blood Urea Nitrogen 24 mg/dL (7-17); Calcium 9.5 mg/dL (8.4-10.2); Carbon Dioxide 29 mmol/L (22-32); Chloride 104 mmol/L (98-107); Estimated Glomerular Filt Rate > 60.0 mL/min (>60); Glucose 100 mg/dL (80-110); HEMOLYSIS < 15 (0-50); Potassium 4.3 mmol/L (3.4-5.1); Sodium 138 mmol/L (137-145)
[2020-01-21 10:51] LABS: Magnesium 2.1 mg/dL (1.6-2.3)
== END ==
PROVIDERS: PCP Student in an Organized Health Care Education/Training Program; Referring Provider Student in an Organized Health Care Education/Training Program; Visit Provider Internal Medicine Cardiovascular Disease
DX: I10 Essential (primary) hypertension (principal); I35.0 Nonrheumatic aortic (valve) stenosis; E04.1 Nontoxic single thyroid nodule; H81.10 Benign paroxysmal vertigo, unspecified ear; M62.838 Other muscle spasm
CPT/HCPCS: 36415; 80048; 83735; 84443

== ENCOUNTER → 2020-01-25 13:50 | Outpatient (CLI) | payer MEDICARE, OTHER, SELFPAY ==
[2018-07-19 18:56] VITALS: BMI 38.7
--- NOTE | 2020-01-25 13:53 | DI.US.S_ITS ---
PROCEDURE: US THYROID INDICATIONS: NODULES TECHNIQUE: Real-time scanning was performed of the thyroid gland, with image documentation. COMPARISON: [facility], US, US FINE NEEDLE ASPIRATION THYROID, 10/12/2018, 11:15. [facility], US, US THYROID, 07/20/2018, 9:27. FINDINGS: Right: Thyroid lobe measures 4.3 x 2.1 x 2.3 cm, and is homogeneous in echotexture. Left: Thyroid lobe measures 4.7 x 1.7 x 1.7 cm, and is homogenous in echotexture. Isthmus: 3-4 mm thick. Nodule number: 1 Location: Right mid lobe Size: 1.9 x 1.2 x 1.5 cm, previously 1.2 x 1.5 cm. Composition: Solid Echogenicity: Hypoechoic Shape: wider than tall. Margins: Irregular Echogenic foci: Peripheral calcifications Total points: 6 ACR TI-RADS category: Moderately suspicious (this was attempted to be fine needle aspirated on the prior study unsuccessfully due to calcifications) Nodule number: 2 Location: Right upper pole Size: 1.3 x 0.7 x 1.0 cm. New finding Composition: Solid Echogenicity: Hypoechoic Shape: wider than tall. Margins: Smooth Echogenic foci: Punctate Total points: 7 ACR TI-RADS category: Highly suspicious Nodule number: 3 Location: Left mid lobe Size: 0.7 x 0.5 x 0.6 cm, previously 0.6 x 0.5 x 0.5 cm. Composition: Solid Echogenicity: Hypoechoic Shape: wider than tall. Margins: Smooth Echogenic foci: Macro calcifications Total points: 5 ACR TI-RADS category: Moderately suspicious Nodule number: 4 Location: Left upper pole Size: 1.1 x 0.6 x 0.7 cm, previously 1.0 x 0.5 x 0.9 cm. Composition: Solid Echogenicity: Hypoechoic Shape: wider than tall. Margins: Smooth Echogenic foci: None Total points: 4 ACR TI-RADS category: Moderately suspicious IMPRESSION: Bilateral thyroid nodules as detailed above. Ultrasound-guided fine needle aspiration recommended for (new) nodule 2 in the right lobe ACR TI-RADS definitions and recommendations: TI-RADS 1 (benign): 0 points. FNA not needed. TI-RADS 2 (not suspicious): 2 points. FNA not needed. TI-RADS 3 (mildly suspicious): 3 points. * FNA if 2.5 cm or larger, follow up if 1.5 cm or larger (at 1, 3, and 5 years). TI-RADS 4 (moderately suspicious): 4-6 points. * FNA if 1.5 cm or larger, follow up if 1 cm or larger (at 1, 2, 3, and 5 years). TI-RADS 5 (highly suspicious): 7 points or more. * FNA if 1 cm or larger, follow up if 0.5 cm or larger (every year for 5 years). Dictated by: River Galeano M.D. on 01/25/2020 at 17:05 Approved by: River Galeano M.D. on 01/25/2020 at 17:22
== END ==
PROVIDERS: PCP Student in an Organized Health Care Education/Training Program; Referring Provider Student in an Organized Health Care Education/Training Program; Visit Provider Student in an Organized Health Care Education/Training Program
DX: E04.2 Nontoxic multinodular goiter (principal)
CPT/HCPCS: 76536

== ENCOUNTER → 2020-02-02 08:59 | Outpatient (CLI) | payer MEDICARE, OTHER, SELFPAY ==
[2018-07-19 18:56] VITALS: BMI 38.7
--- NOTE | 2020-02-02 | PATH_ITS ---
Note [facility] Accession Number: [id number] TESTS RESULT FLAG UNITS REF RANGE LAB Clinician Provided Cytology Information No. of containers..00 Previously Prepared Cytology Slide 35 Unknown Storage/container code(s) 01 R THYROID NODULE DIAGNOSIS: 01 RIGHT THYROID NODULE, FINE NEEDLE ASPIRATION. NEGATIVE FOR MALIGNANT CELLS. ADEQUATE FOR EVALUATION. FOLLICULAR GROUPS ARE PRESENT. BENIGN FOLLICULAR (GOITEROUS) NODULE (BETHESDA CATEGORY II), SEE COMMENT. COMMENT: MICROSCOPIC EXAMINATION REVEALS A MILDLY CELLULAR ASPIRATE, COMPOSED OF COLLOID, FOLLICULAR GROUPS WITHOUT SIGNIFICANT CYTOLOGIC OR ARCHITECTURAL ATYPIA, AND BACKGROUND MACROPHAGES. THESE FINDINGS SUPPORT A BENIGN FOLLICULAR (GOITEROUS) NODULE. CORRELATION WITH CLINICAL AND RADIOGRAPHIC FINDINGS IS RECOMMENDED. ACCORDING TO THE B[place]DA REPORTING SYSTEM FOR THYROID CYTOPATHOLOGY, THE RISK OF MALIGNANCY IN THE CATEGORY BENIGN-CATEGORY II IS 0-3%; THEREFORE RECOMMEND CONTINUED ULTRASOUND SURVEILLANCE WITH REPEAT FNA IF THE NODULE SIGNIFICANTLY INCREASES IN SIZE. Pathologist ICD10: 01 E04.1 01 Medical history updated 01/20/2020 @ 19:49 by Chris Mcginnis MD) Anxiety (Chronic) Edema extremities (Acute) Hypertension (Chronic) Hypothroidism (Chronic) Hypoventilation syndrome (Chronic 2018) 01 Kaiser Chopra MD, Pathologist NPI- [id number] 01 David Crews, [employer] ([facility]) 01 30 CC, PALE PINK, CLEAR Also received 1 RNA vial, 5 alcohol fixed, and 5 quick-stained slides. /[facility] 02/03/2020 1158 Local FLAG LEGEND: L-Low Normal,H-High Normal,LL-Alert Low,HH-Alert High <-Panic Low,>-Panic High,A-Abnormal,AA-Critical Abnormal Performed at: 01 =Z [facility] [address] [place] [address] [address], [place] [address] Brian Babb MD, Performed at: [address] [facility] [address] [address] [place] [address] [address], [place], [place] [id number] MD Brian Babb MD Phone: [phone]
--- NOTE | 2020-02-02 09:02 | DI.US.S_ITS ---
PROCEDURE: US FINE NEEDLE ASPIRATION INDICATIONS: RIGHT THYROID NODULE UPPER LOBE TECHNIQUE: The indications, alternatives, benefits, risks, and complications of the procedure were explained to the patient. Written informed consent was obtained and placed in the chart. The thyroid region was examined sonographically and a site was chosen for ultrasound guided percutaneous sampling. The skin was prepared and draped in the usual fashion, and anesthetized with 1% lidocaine infiltrated from the skin down to the thyroid gland. Multiple passes were then performed, with contents emptied into an appropriate pathology specimen container. A bandage was applied to the area of access at completion of the study. COMPARISON: Ultrasound, thyroid, 01/25/2020. FINDINGS: Location(s) of lesion(s) sampled: Right thyroid nodule Trent: 25 gauge hypodermic needles. Number of passes: 6 Medications: 1% lidocaine for local anaesthesia. Complications: None. IMPRESSION: Successful ultrasound-guided thyroid nodule fine needle aspiration, with cytology results pending. Please see chart below for management recommendations based on cytology results. [facility] ReportingRecommendationsNon-diagnostic* Repeat US-guided FNA, with on-site cytology evaluation if possible. * Repeated non-diagnostic nodules without high suspicion US features: close observation vs surgical consult. * Consider surgery if nodule has high suspicion US features, grows >20% in 2 dimensions on followup, or patient has clinical risk factors for malignancy. Benign* If nodule has high suspicion US features: repeat US and FNA within 12 months. * If nodule has low to intermediate suspicion US features: repeat US at 12-24 months. If nodule grows (20% increase in at least 2 dimensions, with minimal increase of 2 mm or >50% change in volume), or development of new suspicious US features, then repeat FNA or continue followup. * If nodule has very low suspicion US features: followup US at >24 months. Atypia of undetermined significance, follicular lesion of undetermined significanceRepeat FNA, molecular testing, followup US, or surgical consult.Follicular neoplasm, suspicious for follicular neoplasmSurgical consult; also consider molecular testing. Suspicious for malignancySurgical consult.MalignantSurgical consult. Dictated by: Jolly Stark M.D. on 02/02/2020 at 11:18 Approved by: Jolly Stark M.D. on 02/02/2020 at 11:19
== END ==
PROVIDERS: PCP Student in an Organized Health Care Education/Training Program; Referring Provider Student in an Organized Health Care Education/Training Program; Visit Provider Student in an Organized Health Care Education/Training Program
DX: E04.1 Nontoxic single thyroid nodule (principal)
CPT/HCPCS: 10005

== ENCOUNTER 2020-10-16 11:24 | Emergency (ER) | payer MEDICARE, OTHER, SELFPAY ==
[2018-07-19 18:56] VITALS: BMI 38.7
[2020-10-16] VITALS (17 sets, daily range): BP systolic 138–208; BP diastolic 77–92; PULSE 59–74; RESP 10–24; TEMP 36.7; O2SAT 96–100
--- NOTE | 2020-10-16 14:09 | ED.DIZZY ---
HPI - Dizziness General Chief Complaint: Dizziness Stated Complaint: lightheadedness, shaky, pressure in forehead Time Seen by Provider: 10/16/20 14:08 Source: patient Mode of arrival: Wheelchair Limitations: no limitations History of Present Illness HPI Narrative: This is a 79-year-old female comes emergency department with complaint of a pressure in her forehead. She has felt a little bit dizzy and occasionally mildly lightheaded. Patient denies any fevers or chills. No nasal congestion, no cough. No vision changes. No difficulty with speech, ambulation. No chest pain or shortness of breath. No nausea or vomiting. No other GI or urinary symptoms. Patient states it is not really a pain it was just some mild pressure in her forehead. She describes it as mild. She is already set up follow-up with her lastex operator and regular physician and also notes she has a history of thyroid nodules and is trying to follow up this as well for repeat aspiration. Patient states she takes losartan and aspirin daily she does not take any other daily medications. She did recently restart using her nasal prong CPAP in the last week which she had not used for some time and has also set up an appointment to have her machine titrated again. She was concerned about possible bladder infection but states she went into the walk-in clinic and was told that her urinalysis was negative this was earlier today and then she was referred here. Related Data Home Medications Medication Instructions Recorded Confirmed Respironics Dreamstation CPAP #1 ea 07/01/18 03/20/20 Previous Rx's Medication Instructions Recorded aspirin 81 mg chewable tablet 81 mg PO DAILY #30 tab 07/21/18 alendronate 70 mg tablet 70 mg PO QWEEK #12 tab 01/30/20 meclizine 12.5 mg tablet 12.5 mg PO BID PRN 30 Days #60 tab 03/20/20 losartan 50 mg tablet 50 mg PO DAILY #90 tab 03/27/20 Allergies Allergy/AdvReac Type Severity Reaction Status Date / Time oxycodone [OXYCODONE] Allergy Severe ANAPHYLAXIS Verified 03/20/20 08:38 iodine Allergy Mild Rash Verified 03/20/20 08:38 Topical only per pt silver Allergy Mild itchy red Verified 03/20/20 08:38 [From Tegaderm AG Mesh] rash celecoxib [From Celebrex] AdvReac Severe GERD, Verified 03/20/20 08:38 Palpitations Review of Systems Review of Systems ROS Unobtainable: All systems reviewed & are unremarkable except as noted in HPI and below Patient History Medical History Anxiety Edema extremities Hypertension Hypothyroidism Hypoventilation syndrome (2018) Osteoarthritis Overactive bladder Paroxysmal vertigo Restless legs syndrome Sleep apnea Upper airway resistance syndrome Surgical History H/O thymectomy H/O: hysterectomy History of arthroplasty of right knee History of bunionectomy of right great toe History of left knee surgery Hx laparoscopic cholecystectomy Hx of section Hx of left breast biopsy Hx of thymectomy Status post bilateral cataract extraction Family History Mother Cardiac arrhythmia Heart failure Heart disease Social History marital status: ( Rolando, Benson hinest, buried in [facility]) details: has one daughter, [place], lives nearby household members: other (lives alone) lives independently: Yes caregiver/support person: No 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 HEENT: Atraumatic, pupils are equal round reactive to light, extraocular movements are intact, nares are clear, TMs are clear with no fluid, there is no conjunctival pallor. Throat is clear without any exudates, erythema, tonsillar enlargement or uvular deviation, no facial droop. Clear speech. HEART: Regular rate and rhythm without murmur, clicks, rubs. Pulses are equal in upper and lower extremities LUNGS:Lungs clear to auscultation, no wheezes, rales, crackles, chest moves symmetrically ABD:bowel sounds normal, soft, non-tender, no guarding, rebound, rigidity, no masses noted, no hepatosplenomegaly :No CVA tenderness MSCL: Non-tender, no muscle atrophy, muscles strength 5/5 upper and lower extremities, full range of motion, normal gait NEURO:CN 2-12 intact, sensation normal, heel-kumar normal bilaterally, finger-nose normal bilaterally. Initial Vital Signs Initial Vital Signs: Vital Signs Temperature 98.1 F 10/16/20 11:30 Pulse Rate 64 10/16/20 11:30 Respiratory Rate 16 10/16/20 11:30 Blood Pressure 138/92 H 10/16/20 11:30 Pulse Oximetry 97 10/16/20 11:30 Course Orders Ordered: ED Orders 10/16/20 14:33 Basic Metabolic Panel Stat Complete Blood Count AUTO DIFF Stat Thyroid Stimulating Hormone Stat Vital Signs Vital signs: Vital Signs - 8 hr 10/16/20 13:00 10/16/20 13:15 10/16/20 13:30 Pulse Rate 68 69 65 Respiratory Rate 12 14 13 Blood Pressure 208/86 H 176/77 H Pulse Oximetry 96 97 98 10/16/20 13:45 10/16/20 14:00 10/16/20 14:15 Pulse Rate 74 66 70 Respiratory Rate 19 10 L 21 Blood Pressure 187/80 H Pulse Oximetry 97 100 99 10/16/20 14:30 10/16/20 14:45 10/16/20 15:00 Pulse Rate 62 59 L 60 Respiratory Rate 14 21 20 Blood Pressure 189/77 H 188/77 H Pulse Oximetry 99 98 99 MDM - Dizziness Lab Data Result diagrams: 10/16/20 14:33 10/16/20 14:33 Labs: Lab Results 10/16/20 10/16/20 10/16/20 Range/Units 14:33 14:33 14:33 WBC 7.0 (4.5-11.0) X10^3/uL RBC 4.96 (4.0-5.2) X10^6/uL Hgb 13.7 (12.0-16.0) g/dL Hct 41.7 (36-46) % MCV 84.0 (80-100) fL MCH 27.7 (26-34) PG MCHC 32.9 (30-36) % RDW 14.6 (11.6-14.8) % Plt Count 187 (150-400) X10^3/uL Neut % (Auto) 62.1 (50-75) % Lymph % (Auto) 29.0 (25-40) % [place] % (Auto) 4.8 (3-14) % Eos % (Auto) 2.7 (2-4) % Baso % (Auto) 1.4 (0-2) % Neut # (Auto) 4300 (2714-1274) /uL Lymph # (Auto) 2000 (6450-3763) /uL [place] # (Auto) 300 (0-900) /uL Eos # (Auto) 200 (0-450) /uL Baso # (Auto) 100 (0-100) /uL Sodium 140 (137-145) mmol/L Potassium 4.0 (3.4-5.1) mmol/L Chloride 107 (98-107) mmol/L Carbon Dioxide 27 (22-32) mmol/L BUN 15 (7-17) mg/dL Creatinine 0.59 (0.52-1.04) mg/dL Estimated GFR > 60.0 (>60) mL/min BUN/Creatinine Ratio 25.4 H (6-22) Glucose 95 (80-110) mg/dL Calcium 9.3 (8.4-10.2) mg/dL TSH 2.23 (0.47-4.68) uIU/mL Urine Dip Bedside Urine Glucose Negative Bedside Urine Bilirubin - Negative Bedside Urine Ketone - Negative Urine Specific Ramsey 1.010 Bedside Urine Occult Blood - Negative Bedside Urine pH 6.0 Bedside Urine Protein - Negative Bedside Urine Urobilinogen - Negative Bedside Urine Nitrite - Negative Bedside Urine Leukocytes - Negative Esterase ECG Data Interpretation: Sinus rhythm rate of 61 CO 196 QRS of 110 and QTC of 453. No ST elevation or depression noted. [facility] Narrative Medical decision making narrative: This is a 79-year-old female comes to the emergency department with complaint of a sensation of pressure on her forehead. She describes it as a pressure, it is intermittent. She felt a little lightheaded at times but the has not been concurrent. Patient denies any other concerning findings today. The patient I discussed she is on losartan, labs are obtained to rule out any electrolyte abnormalities or changes. Her neurologic exam is reassuring. Discussed with patient at this time head CT is deferred as she has an even really had pain it has been more of an occasional pressure on her forehead. She does note she recently started using her nasal cannula prongs for her CPAP. She is already set up follow-up for repeat sleep study as she has not used her CPAP in several years, Cardiology and her primary care. Patient states she was at the walk-in clinic today and evaluated for UTI she thought that might be part of her symptoms. That was negative and she was told to come here. Discharge Plan Departure Patient Disposition: Home Clinical Impression: Dizziness Instructions: DI for Dizziness-Nonvertigo Activity Restrictions/Additional Instructions: Follow-up with your physician for recheck. I think it is a very appropriate that you have set up follow-up with your lastex operator as well. Her labs today are reassuring, your thyroid is still pending but as he requested to be discharged he can follow-up with your primary care physician with this result. May continue home medications as prescribed. Please return for new or worsening symptoms, fevers, severe headaches, vision changes, numbness, tingling or weakness of your extremities, difficulty with ambulation or walking, persistent vomiting, new chest pain or shortness of breath or other new or concerning symptoms. Prescriptions: No Action alendronate 70 mg tablet 70 mg PO QWEEK Qty: 12 RF: 3 meclizine 12.5 mg tablet 12.5 mg PO BID PRN (Reason: vertigo) 30 Days Qty: 60 RF: 2 losartan 50 mg tablet 50 mg PO DAILY Qty: 90 RF: 3 aspirin 81 mg Tablet,Chewable 81 mg PO DAILY Qty: 30 RF: 0 (DME) Respironics Dreamstation CPAP Qty: 1 RF: 0 Referrals: Chris Mcginnis MD [Primary Care Provider] -
[2020-10-16 14:40] LABS: Add Manual Diff / Slide Review NO; Basophils Absolute Auto 100 /uL (0-100); Basophils Percent Auto 1.4 % (0-2); Eosinophils Absolute Auto 200 /uL (0-450); Eosinophils Percent Auto 2.7 % (2-4); Hematocrit 41.7 % (36-46); Hemoglobin 13.7 g/dL (12.0-16.0); Lymphocytes Absolute Auto 2000 /uL (1100-4500); Mean Corpuscular HGB Conc 32.9 % (30-36); Mean Corpuscular Hemoglobin 27.7 PG (26-34); Monocytes Absolute Auto 300 /uL (0-900); Monocytes Percent Auto 4.8 % (3-14); Neutrophils Absolute Auto 4300 /uL (1500-7000); Neutrophils Percent Auto 62.1 % (50-75); Platelet Count 187 X10^3/uL (150-400); Red Blood Cell Count 4.96 X10^6/uL (4.0-5.2); Red Cell Distribution Width 14.6 % (11.6-14.8)
[2020-10-16 14:55] LABS: BUN Creatinine Ratio 25.4 (6-22); Blood Urea Nitrogen 15 mg/dL (7-17); Calcium 9.3 mg/dL (8.4-10.2); Carbon Dioxide 27 mmol/L (22-32); Chloride 107 mmol/L (98-107); Estimated Glomerular Filt Rate > 60.0 mL/min (>60); Glucose 95 mg/dL (80-110); HEMOLYSIS < 15 (0-50); Sodium 140 mmol/L (137-145)
[2020-10-16 15:32] LABS: Thyroid Stimulating Hormone 2.23 uIU/mL (0.47-4.68)
== END 2020-10-16 15:25 | disposition home or self-care (01) ==
PROVIDERS: Emergency Provider Emergency Medicine; PCP Student in an Organized Health Care Education/Training Program
DX: R42 Dizziness and giddiness (principal)
CPT/HCPCS: 36415; 80048; 81003; 84443; 85025; 93005; 93010; 99283; 99284

== ENCOUNTER → 2021-02-26 10:38 | Outpatient (CLI) | payer MEDICARE, OTHER, SELFPAY ==
[2018-07-19 18:56] VITALS: BMI 38.7
--- NOTE | 2021-02-26 10:40 | DI.US.S_ITS ---
PROCEDURE: US THYROID INDICATIONS: right thyroid nodule 1 year surveillance TECHNIQUE: Real-time scanning was performed of the thyroid gland, with image documentation. COMPARISON: [facility], US, US THYROID, 07/20/2018, 9:27. [facility], US, US THYROID, 01/25/2020, 14:03. FINDINGS: Right: Thyroid lobe measures 5 x 1 x 2.6 x 2.0 cm, and is homogeneous in echotexture. Left: Thyroid lobe measures 4.8 x 2.1 x 1.6 cm, and is homogenous in echotexture. Isthmus: 3.5 mm thick. Nodule number: 1 Location: Right mid anterior Size: 1.3 x 1.4 x 1.1 cm compared to 1.9 x 1.2 x 1.5 cm. Composition: Solid Echogenicity: Hypoechoic Shape: wider than tall. Margins: Irregular Echogenic foci: Peripheral calcifications Total points: 6 ACR TI-RADS category: 4 Nodule number: 2 Location: Right superior, previously biopsied Size: 1.4 x 0.6 x 0.7 cm compared to 1.3 x 0.7 x 1.0 cm cm. Composition: Solid Echogenicity: Hypoechoic Shape: wider than tall. Margins: Smooth Echogenic foci: Punctate Total points: 7 ACR TI-RADS category: 5 Nodule number: 3 Location: Left mid Size: 0.7 x 0.6 x 0.6 cm compared to 0.7 x 0.5 x 0.6 cm. Composition: Solid Echogenicity: Hypoechoic Shape: wider than tall. Margins: Smooth Echogenic foci: Macrocalcifications Total points: 5 ACR TI-RADS category: 4 Nodule number: 4 Location: Left superior Size: 1.1 x 0.6 x 0.7 cm compared to 1.1 x 0.6 x 0.7 cm. Composition: Solid Echogenicity: Hypoechoic Shape: wider than tall. Margins: Smooth Echogenic foci: None Total points: 4 ACR TI-RADS category: 4 IMPRESSION: 1. Lesion 1 is considered category 4 in secondary to size, continued interval follow-up is recommended as below. 2. Lesion 2. It has been previously biopsied. 3. Lesion 4 is considered category 4 and secondary to size, interval follow-up is recommended as indicated below. 4. Lesion 3 noted above is category 4. Secondary to small size, no additional follow-up is recommended as below. ACR TI-RADS definitions and recommendations: TI-RADS 1 (benign): 0 points. FNA not needed. TI-RADS 2 (not suspicious): 2 points. FNA not needed. TI-RADS 3 (mildly suspicious): 3 points. * FNA if 2.5 cm or larger, follow up if 1.5 cm or larger (at 1, 3, and 5 years). TI-RADS 4 (moderately suspicious): 4-6 points. * FNA if 1.5 cm or larger, follow up if 1 cm or larger (at 1, 2, 3, and 5 years). TI-RADS 5 (highly suspicious): 7 points or more. * FNA if 1 cm or larger, follow up if 0.5 cm or larger (every year for 5 years). Dictated by: Rhianna Etienne M.D. on 02/26/2021 at 13:29 Approved by: Rhianna Etienne M.D. on 02/26/2021 at 13:33
== END ==
PROVIDERS: PCP Student in an Organized Health Care Education/Training Program; Referring Provider Student in an Organized Health Care Education/Training Program; Visit Provider Student in an Organized Health Care Education/Training Program
DX: E04.2 Nontoxic multinodular goiter (principal)
CPT/HCPCS: 76536

== ENCOUNTER → 2022-01-14 10:52 | Outpatient (CLI) | payer MEDICARE, OTHER, SELFPAY ==
[2018-07-19 18:56] VITALS: BMI 38.7
[2022-01-14 12:04] LABS: BUN Creatinine Ratio 31.4 (6-22); Blood Urea Nitrogen 27 mg/dL (7-17); Calcium 9.8 mg/dL (8.4-10.2); Carbon Dioxide 28 mmol/L (22-32); Chloride 100 mmol/L (98-107); Cholesterol 261 mg/dL (140-199); Estimated Glomerular Filt Rate > 60 mL/min (>60); Glucose 97 mg/dL (80-110); HDL Cholesterol 54 mg/dL (40-60); HEMOLYSIS < 15 (0-50); LDL Cholesterol Calculated 163 mg/dL (<100); Potassium 4.9 mmol/L (3.4-5.1); Sodium 136 mmol/L (137-145); Triglycerides 220 mg/dL (35-150)
== END ==
PROVIDERS: PCP Student in an Organized Health Care Education/Training Program; Referring Provider Student in an Organized Health Care Education/Training Program; Visit Provider Student in an Organized Health Care Education/Training Program
DX: I10 Essential (primary) hypertension (principal); E04.1 Nontoxic single thyroid nodule; E78.2 Mixed hyperlipidemia
CPT/HCPCS: 36415; 80048; 80061; 84443

== ENCOUNTER → 2022-01-23 11:28 | Outpatient (CLI) | payer MEDICARE, OTHER, SELFPAY ==
[2018-07-19 18:56] VITALS: BMI 38.7
== END ==
PROVIDERS: PCP Student in an Organized Health Care Education/Training Program; Referring Provider Student in an Organized Health Care Education/Training Program; Visit Provider Student in an Organized Health Care Education/Training Program
DX: Z13.820 Encounter for screening for osteoporosis (principal); M81.0 Age-related osteoporosis without current pathological fracture; Z78.0 Asymptomatic menopausal state; Z90.710 Acquired absence of both cervix and uterus; Z79.83 Long term (current) use of bisphosphonates
CPT/HCPCS: 77080

== ENCOUNTER → 2022-03-19 09:16 | Outpatient (CLI) | payer MEDICARE, OTHER, SELFPAY ==
[2018-07-19 18:56] VITALS: BMI 38.7
--- NOTE | 2022-03-19 09:18 | DI.RAD.S_ITS ---
PROCEDURE: XR HIP W PEL IF DONE RT 2V INDICATIONS: Right groin pain and low back pain TECHNIQUE: 2 views of the hip were acquired. COMPARISON: None. FINDINGS: Moderate bilateral hip joint space narrowing with marginal osteophytosis. Mild sacroiliac joint space narrowing. No suspicious lytic or blastic osseous lesion. No acute finding. IMPRESSION: Moderate bilateral hip osteoarthritis. Dictated by: Will May M.D. on 03/19/2022 at 16:21 Approved by: Will May M.D. on 03/19/2022 at 16:21
--- NOTE | 2022-03-19 09:18 | DI.RAD.S_ITS ---
PROCEDURE: XR LUMBAR SPINE 2-3V INDICATIONS: Right groin pain and low back pain TECHNIQUE: 3 views of the lumbar spine were acquired. COMPARISON: None. FINDINGS: Normal lumbar vertebral body height and alignment. Diffuse disc height loss with posterior osteophytic ridging of the endplates and facet hypertrophy creating varying degrees of mild to moderate neural foraminal narrowing at least with suspected possible severe narrowing at L4-L5. No suspicious lytic or blastic osseous lesion. Aortic atherosclerosis. IMPRESSION: Moderate to severe degenerative changes most notable at L4-L5. Dictated by: Will May M.D. on 03/19/2022 at 16:18 Approved by: Will May M.D. on 03/19/2022 at 16:20
== END ==
PROVIDERS: PCP Student in an Organized Health Care Education/Training Program; Referring Provider Student in an Organized Health Care Education/Training Program; Visit Provider Student in an Organized Health Care Education/Training Program
DX: M47.816 Spondylosis without myelopathy or radiculopathy, lumbar region (principal); M16.0 Bilateral primary osteoarthritis of hip; M54.41 Lumbago with sciatica, right side; M54.42 Lumbago with sciatica, left side; R10.31 Right lower quadrant pain
CPT/HCPCS: 72100; 73502

== ENCOUNTER → 2022-03-27 10:33 | Outpatient (CLI) | payer MEDICARE, OTHER, SELFPAY ==
[2018-07-19 18:56] VITALS: BMI 38.7
== END ==
PROVIDERS: PCP Student in an Organized Health Care Education/Training Program; Visit Provider Family Medicine
DX: R30.9 Painful micturition, unspecified (principal); R31.9 Hematuria, unspecified
CPT/HCPCS: 87077; 87086; 87186

== ENCOUNTER 2022-04-27 13:26 | Emergency (ER) | payer MEDICARE, OTHER, SELFPAY ==
[2018-07-19 18:56] VITALS: BMI 38.7
[2022-04-27] VITALS (17 sets, daily range): BP systolic 154–242; BP diastolic 68–135; PULSE 80–94; RESP 16–41; TEMP 36.6; O2SAT 96–99; BMI 37.6
--- NOTE | 2022-04-27 13:57 | DI.RAD.S_ITS ---
PROCEDURE: XR CHEST 1V INDICATIONS: chest pain TECHNIQUE: One view of the chest was acquired. COMPARISON: [facility], CR, XR CHEST 1V, 07/19/2018, 12:08. FINDINGS: Surgical changes and devices: Sternal suture wires in the upper portion of the chest. Overlying monitoring wires. Lungs and pleura: Lungs are clear. No pleural effusions or pneumothorax. Mediastinum: Mediastinal contours appear normal. Heart size is normal. Bones and chest wall: No suspicious bony lesions. Overlying soft tissues appear unremarkable. IMPRESSION: 1. No acute cardiopulmonary disease. Dictated by: Shamika Mclean M.D. on 04/27/2022 at 15:04 Approved by: Shamika Mclean M.D. on 04/27/2022 at 15:05
[2022-04-27 14:17] LABS: Add Manual Diff / Slide Review NO; Basophils Absolute Auto 100 /uL (0-100); Basophils Percent Auto 0.9 % (0-2); Eosinophils Absolute Auto 100 /uL (0-450); Eosinophils Percent Auto 1.3 % (2-4); Hematocrit 43.1 % (36-46); Hemoglobin 14.6 g/dL (12.0-16.0); Lymphocytes Absolute Auto 1400 /uL (1100-4500); Lymphocytes Percent Auto 13.5 % (25-40); Mean Corpuscular HGB Conc 33.8 % (30-36); Mean Corpuscular Hemoglobin 27.8 PG (26-34); Mean Corpuscular Volume 82.1 fL (80-100); Monocytes Absolute Auto 300 /uL (0-900); Monocytes Percent Auto 2.4 % (3-14); Neutrophils Absolute Auto 8600 /uL (1500-7000); Neutrophils Percent Auto 81.9 % (50-75); Platelet Count 195 X10^3/uL (150-400); Red Blood Cell Count 5.26 X10^6/uL (4.0-5.2); Red Cell Distribution Width 15.3 % (11.6-14.8); White Blood Cell Count 10.6 X10^3/uL (4.5-11.0)
[2022-04-27] MEDS: ONDANSETRON 4 MG/2 ML INJ IV (14:23)
[2022-04-27 14:26] LABS: INR 1.1 (0.9-1.3); Prothrombin Time 12.2 SECONDS (10.1-12.7)
[2022-04-27 14:29] LABS: PTT Partial Thromboplastin Tim 33 SECONDS (26-36)
[2022-04-27 14:31] LABS: Alanine Aminotransferase 25 IU/L (<35); Albumin 4.7 g/dL (3.5-5.0); Albumin Globulin Ratio 1.1 (1.0-2.8); Alkaline Phosphatase 72 U/L (38-126); Aspartate Aminotransferase 28 IU/L (14-36); BUN Creatinine Ratio 32.3 (6-22); Bilirubin Total 1.2 mg/dL (0.2-1.3); Blood Urea Nitrogen 21 mg/dL (7-17); Calcium 9.1 mg/dL (8.4-10.2); Carbon Dioxide 26 mmol/L (22-32); Chloride 98 mmol/L (98-107); Creatine Kinase 80 U/L (30-135); Estimated Glomerular Filt Rate > 60 mL/min (>60); Globulin 4.1 g/dL (1.7-4.1); Glucose 132 mg/dL (80-110); HEMOLYSIS < 15 (0-50); Lipase 59 U/L (23-300); Magnesium 1.9 mg/dL (1.6-2.3); Potassium 3.7 mmol/L (3.4-5.1); Sodium 134 mmol/L (137-145); Total Protein 8.8 g/dL (6.3-8.2)
[2022-04-27 14:42] LABS: Troponin I < 0.012 ng/mL (0.01-0.034)
[2022-04-27 15:00] LABS: COVID19 -Nasal RAPID Negative (Negative)
--- NOTE | 2022-04-27 15:36 | ED_ITS ---
HPI - Back Pain/Injury General Chief Complaint: Abdominal Pain Stated Complaint: High BP/pain in LT side back & groin/N Time Seen by Provider: 04/27/22 14:31 Source: patient Limitations: no limitations History of Present Illness HPI Narrative: This is a 81-year-old female with complaint of left-sided back and groin pain radiating to the left groin. Patient states that she has had left lower back pain radiates to her left buttock for at least 4 weeks she stated she had some right back pain that radiated down her leg into the right groin which was initially with her back pain that resolved. She states now she is had this persistent left lower back pain with spasms particularly when she pushes on the SI region. She states no numbness or tingling. No weakness. She has full range of motion she notes pain is increased more movement with right lower extremity flexion at the hip. She states left lower extremity flexion actually makes her left lower back feel better. Patient states the reason she came today she felt generally unwell and the pain now radiates from her left back to her groin rather than just her buttock. She also states it is a little bit more increased than usual. She denies any intra-abdominal pain she denies active headache, no chest pain or shortness of breath. She is had some nausea but no vomiting. She states she is been having bowel movements which have been generally soft. She did have a UTI 3 weeks ago, she took 10 days of antibiotics she states this area resolved she has not had any dysuria urgency or frequency persisting. Patient states she is had chronic longstanding urinary inconti nence. She does wear a pad if she sometimes has residue after stooling but states she is not having any incontinence or is unaware that any stool is coming out. Patient states she takes losartan 50 mg daily. She is had knee surgery x2, bunionectomy, hysterectomy, lumpectomy, cholecystectomy. No prior back surgeries or interventions. No tobacco, alcohol or illicit. Dr. Kothari is her primary care physician. Patient states oxycodone makes it so she can not breathe and her roof swells. She is had morphine without issue after knee surgery and has had tramadol without issue. She states iodine can cause a reaction it states topical in the EMR but patient states she was treated with Benadryl after her last CT with iodine. Related Data Home Medications Medication Instructions Recorded Confirmed Respironics Dreamstation CPAP #1 ea 07/01/18 03/27/22 famotidine 20 mg tablet 20 mg PO DAILY 02/19/22 03/27/22 Previous Rx's Medication Instructions Recorded losartan 50 mg tablet 50 mg PO DAILY #90 tabs 12/03/21 ibandronate 150 mg tablet 150 mg PO QMONTH #3 tabs 02/19/22 nitrofurantoin macrocrystal 100 mg 100 mg PO BID #10 caps 03/27/22 capsule prednisone 20 mg tablet 40 mg PO DAILY #10 tabs 04/27/22 tramadol 50 mg tablet 50 mg PO QID PRN pain #10 tabs 04/27/22 Allergies Allergy/AdvReac Type Severity Reaction Status Date / Time oxycodone [OXYCODONE] Allergy Severe ANAPHYLAXIS Verified 03/27/22 10:21 iodine Allergy Mild Rash Verified 03/27/22 10:21 Topical only per pt silver Allergy Mild itchy red Verified 03/27/22 10:21 [From Tegaderm AG Mesh] rash celecoxib [From Celebrex] AdvReac Severe GERD, Verified 03/27/22 10:21 Palpitations alendronate sodium AdvReac Intermediate Jaw cramps Verified 03/27/22 10:21 Patient History Medical History (Updated 04/27/22 @ 17:41 by Winnie Beauchamp DO) Anxiety Edema extremities Hypertension Hypothyroidism 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, living in [facility] Smoking Status: Never smoker alcohol intake: former Smoking Status: Never smoker alcohol intake frequency: 0-2 drinks per day Substance Use Type: does not use Exam Initial Vital Signs Initial Vital Signs: Vital Signs Temperature 98 F 04/27/22 13:40 Pulse Rate 94 H 04/27/22 13:40 Respiratory Rate 18 04/27/22 13:40 Blood Pressure 242/112 H 04/27/22 13:40 Pulse Oximetry 97 04/27/22 13:40 Oxygen Delivery Method 04/27/22 13:40 Course Orders Ordered: ED Orders 04/27/22 13:57 XR chest 1V Stat EKG-12 Lead Stat 04/27/22 13:59 Complete Blood Count AUTO DIFF Stat Comprehensive Metabolic Panel Stat Lipase Stat Magnesium Stat Partial Thromboplastin Time Stat Prothrombin Time INR Stat Troponin & CK Cardiac Panel Stat 04/27/22 14:28 COVID19 -Nasal RAPID/Pre-Proc Stat 04/27/22 16:00 EKG-12 Lead Stat 04/27/22 16:01 CT abdomen pelvis w con Stat 04/27/22 16:28 Trop I [Troponin I] Stat Discontinued Medications Calcium Carbonate (Calcium Carbonate 500 Mg Tab) 500 mg PO NOW ONE Stop: 04/27/22 15:59 Last Admin: 04/27/22 16:11 Dose: 500 mg Documented By: ZAINAB Diphenhydramine HCl (Diphenhydramine 50 Mg/Ml Vial) 25 mg IV NOW ONE Stop: 04/27/22 16:04 Last Admin: 04/27/22 16:11 Dose: 25 mg Documented By: ZAINAB Methylprednisolone (Methylprednisolone 125 Mg/2 Ml Vial) 125 mg IV NOW ONE Stop: 04/27/22 16:04 Last Admin: 04/27/22 16:10 Dose: 125 mg Documented By: ZAINAB Morphine Sulfate (Morphine 2 Mg/Ml Inj) 2 mg IV NOW ONE Stop: 04/27/22 14:08 Last Admin: 04/27/22 16:01 Dose: Not Given Documented By: ZAINAB Morphine Sulfate (Morphine 2 Mg/Ml Inj) 2 mg IV Q2HR PRN PRN Reason: Pain, Moderate (4-6) Last Admin: 04/27/22 16:10 Dose: 2 mg Documented By: ZAINAB Ondansetron HCl (Ondansetron 4 Mg/2 Ml Inj) 4 mg IV NOW ONE Stop: 04/27/22 14:08 Last Admin: 04/27/22 14:23 Dose: 4 mg Documented By: ZAINAB Tramadol HCl (Tramadol 50 Mg Prepack) 1 bottle MISC SEEINSTR ONE Stop: 04/27/22 17:36 Last Admin: 04/27/22 17:50 Dose: 1 bottle Vital Signs Vital signs: Vital Signs - 8 hr 04/27/22 13:40 04/27/22 13:54 04/27/22 13:55 Temperature 98 F Pulse Rate 94 H 87 Respiratory Rate 18 Blood Pressure 242/112 H 216/84 H Pulse Oximetry 97 98 Oxygen Delivery Method Room Air 04/27/22 13:55 04/27/22 14:00 04/27/22 14:39 Temperature Pulse Rate 89 92 H 93 H Respiratory Rate 18 20 Blood Pressure Pulse Oximetry 98 98 99 Oxygen Delivery Method 04/27/22 14:56 04/27/22 14:56 04/27/22 15:00 Temperature Pulse Rate 89 Respiratory Rate 18 Blood Pressure 219/97 H 214/98 H Pulse Oximetry 99 Oxygen Delivery Method 04/27/22 15:00 04/27/22 15:30 04/27/22 15:49 Temperature Pulse Rate 88 83 Respiratory Rate 16 18 Blood Pressure 215/92 H Pulse Oximetry 99 98 Oxygen Delivery Method 04/27/22 15:49 04/27/22 16:00 04/27/22 16:20 Temperature Pulse Rate 90 84 87 Respiratory Rate 41 H 24 24 Blood Pressure Pulse Oximetry 98 97 98 Oxygen Delivery Method 04/27/22 16:20 04/27/22 16:30 04/27/22 16:52 Temperature Pulse Rate 82 83 Respiratory Rate 22 16 Blood Pressure 199/135 H Pulse Oximetry 96 99 Oxygen Delivery Method 04/27/22 16:53 04/27/22 16:53 04/27/22 17:00 Temperature Pulse Rate 82 Respiratory Rate 23 Blood Pressure 171/81 H 156/68 H Pulse Oximetry 98 Oxygen Delivery Method 04/27/22 17:00 04/27/22 17:30 04/27/22 17:30 Temperature Pulse Rate 80 80 Respiratory Rate 25 H 20 Blood Pressure 182/80 H Pulse Oximetry 98 97 Oxygen Delivery Method 04/27/22 17:57 Temperature Pulse Rate 81 Respiratory Rate 21 Blood Pressure 154/72 H Pulse Oximetry 96 Oxygen Delivery Method Room Air MDM - Back Pain/Injury Lab Data Result diagrams: 04/27/22 13:59 04/27/22 13:59 Labs: Lab Results 04/27/22 04/27/22 04/27/22 Range/Units 13:59 13:59 13:59 WBC 10.6 (4.5-11.0) X10^3/uL RBC 5.26 H (4.0-5.2) X10^6/uL Hgb 14.6 (12.0-16.0) g/dL Hct 43.1 (36-46) % MCV 82.1 (80-100) fL MCH 27.8 (26-34) PG MCHC 33.8 (30-36) % RDW 15.3 H (11.6-14.8) % Plt Count 195 (150-400) X10^3/uL Neut % (Auto) 81.9 H (50-75) % Lymph % (Auto) 13.5 L (25-40) % Cuming % (Auto) 2.4 L (3-14) % Eos % (Auto) 1.3 L (2-4) % Baso % (Auto) 0.9 (0-2) % Neut # (Auto) 8600 H (0517-2215) /uL Lymph # (Auto) 1400 (6699-3281) /uL Cuming # (Auto) 300 (0-900) /uL Eos # (Auto) 100 (0-450) /uL Baso # (Auto) 100 (0-100) /uL PT 12.2 (10.1-12.7) SECONDS INR 1.1 (0.9-1.3) APTT 33 (26-36) SECONDS Sodium 134 L (137-145) mmol/L Potassium 3.7 (3.4-5.1) mmol/L Chloride 98 (98-107) mmol/L Carbon Dioxide 26 (22-32) mmol/L BUN 21 H (7-17) mg/dL Creatinine 0.65 (0.52-1.04) mg/dL Estimated GFR > 60 (>60) mL/min BUN/Creatinine Ratio 32.3 H (6-22) Glucose 132 H (80-110) mg/dL Calcium 9.1 (8.4-10.2) mg/dL Magnesium 1.9 (1.6-2.3) mg/dL Total Bilirubin 1.2 (0.2-1.3) mg/dL AST 28 (14-36) IU/L ALT 25 (<35) IU/L Alkaline Phosphatase 72 (38-126) U/L Total Creatine Kinase 80 (30-135) U/L CK-MB (CK-2) TNP CK-MB (CK-2) Rel Index TNP Troponin I < 0.012 (0.01-0.034) ng/mL Total Protein 8.8 H (6.3-8.2) g/dL Albumin 4.7 (3.5-5.0) g/dL Globulin 4.1 (1.7-4.1) g/dL Albumin/Globulin Ratio 1.1 (1.0-2.8) Lipase 59 (23-300) U/L SARS-CoV-2 (PCR) (Negative) 04/27/22 04/27/22 Range/Units 14:28 16:28 WBC (4.5-11.0) X10^3/uL RBC (4.0-5.2) X10^6/uL Hgb (12.0-16.0) g/dL Hct (36-46) % MCV (80-100) fL MCH (26-34) PG MCHC (30-36) % RDW (11.6-14.8) % Plt Count (150-400) X10^3/uL Neut % (Auto) (50-75) % Lymph % (Auto) (25-40) % Cuming % (Auto) (3-14) % Eos % (Auto) (2-4) % Baso % (Auto) (0-2) % Neut # (Auto) (1204-8402) /uL Lymph # (Auto) (8730-6290) /uL Cuming # (Auto) (0-900) /uL Eos # (Auto) (0-450) /uL Baso # (Auto) (0-100) /uL PT (10.1-12.7) SECONDS INR (0.9-1.3) APTT (26-36) SECONDS Sodium (137-145) mmol/L Potassium (3.4-5.1) mmol/L Chloride (98-107) mmol/L Carbon Dioxide (22-32) mmol/L BUN (7-17) mg/dL Creatinine (0.52-1.04) mg/dL Estimated GFR (>60) mL/min BUN/Creatinine Ratio (6-22) Glucose (80-110) mg/dL Calcium (8.4-10.2) mg/dL Magnesium (1.6-2.3) mg/dL Total Bilirubin (0.2-1.3) mg/dL AST (14-36) IU/L ALT (<35) IU/L Alkaline Phosphatase (38-126) U/L Total Creatine Kinase (30-135) U/L CK-MB (CK-2) CK-MB (CK-2) Rel Index Troponin I 0.015 (0.01-0.034) ng/mL Total Protein (6.3-8.2) g/dL Albumin (3.5-5.0) g/dL Globulin (1.7-4.1) g/dL Albumin/Globulin Ratio (1.0-2.8) Lipase (23-300) U/L SARS-CoV-2 (PCR) Negative (Negative) Urine Dip Bedside Urine Glucose Negative Bedside Urine Bilirubin - Negative Bedside Urine Ketone - Negative Urine Specific [place] 1.015 Bedside Urine Occult Blood - Negative Bedside Urine pH 7.0 Bedside Urine Protein - Negative Bedside Urine Urobilinogen - Negative Bedside Urine Nitrite - Negative Bedside Urine Leukocytes - Negative Esterase Imaging Data CT scan - abdomen/pelvis: Radiologist's Impression: [address] [address] [address] Scan Report Signed Patient: William García MR#: [id number] : 07/15/1945 Acct:[id number] Age/Sex: 76 / M Date of Service: 04/27/22 Loc: ED Accession Number: [id number] ?? Procedure: CT kidney ureter bladder (KUB) Ordering Provider: Winnie Beauchamp D.O. PROCEDURE:? CT KIDNEY URETER BLADDER (KUB) ? INDICATIONS:? hematuria, urinary retention ? TECHNIQUE:? Axial sections were acquired from the lung bases to the pubic symphysis.? Coronal and sagittal reformats were performed.? For radiation dose reduction, the following was used: ?automated exposure control, adjustment of mA and/or kV according to patient size.? ? COMPARISON:? [facility], CT, CT KIDNEY URETER BLADDER (KUB), 04/07/2022, 13:59. ? FINDINGS:? Image quality:? Excellent.? ? Lung bases:? Unremarkable.? ? Heart:? Very small hiatal hernia.? Normal size heart. ? URINARY: Right Kidney:? Mild right hydronephrosis.? No intrarenal calcifications.? No significant perinephric inflammation. Right Ureter:? Intermittent dilatation and decompression the right ureter.? No visible calcifications. ? Left Kidney:? The left kidney is comparatively diminutive with cortical thinning.? Mild perinephric inflammation.? No hydronephrosis.? No intrarenal calcifications.? Left Ureter:? No hydroureter or ureteral calculi.? ? Bladder:? Urinary bladder is markedly distended and the wall is thin.? There is a small amount of anterior superior gas.? A Chavez catheter is in place.? Just above this, within the lumen of the bladder there is a large hyperdense mass measuring roughly 8.0 x 9.7 cm containing some gas.? This is lying posteriorly and caudally within the urinary bladder. ? ABDOMEN: Liver:? No masses Gallbladder:? Normal wall thickness. Biliary ducts:? Nondilated. Pancreas:? Normal. Spleen:? Normal size. Adrenal Glands:? No nodules. ? Stomach and Bowel:? Prominent distal descending and sigmoid colon diverticulosis.? No acute diverticulitis.? Stomach, small bowel loops, and colon are unremarkable.? The appendix is normal. Peritoneum:? No abnormal intraperitoneal fluid.? No free air.? ? Ventral Wall: ? No hernia.? Abdominal Nodes:? No enlarged retroperitoneal or mesenteric lymph nodes.? Vessels:? Abdominal aorta is normal size with moderate calcification.? There is bifurcation of the inferior vena cava at the level of the left renal vein. ? PELVIS: Pelvic Organs:? The prostate gland is mildly enlarged. Pelvic Nodes: Unremarkable. Miscellaneous:? Small fat containing bilateral inguinal hernias.? ? Bones: Mild L1 compression fracture without change compared to recent CT.? No acute fractures seen. ? IMPRESSION:? ? 1. Markedly distended urinary bladder and large hyperdense mass most consistent with blood clot surrounding the tip of the Chavez catheter.? Air within the hyperdense mass is likely secondary to recent flush attempts. ? 2. Mild right hydroureteronephrosis. ? 3. Diminutive left kidney and nondilated left ureter.? Dictated by: Shamika Mclean M.D. on 04/27/2022 at 15:05 ? ? Approved by: Shamika Mclean M.D. on 04/27/2022 at 15:14?? Chest x-ray: Radiologist's Impression: Close Abdomen/Pelvis CT (Signed) Shamika Mclean - 04/27/22 Chest X-Ray (Signed) Shamika Mclean - 04/27/22 Lumbar Spine X-Ray (Signed) Will May - 03/19/22 Hip X-Ray (Signed) Will May - 03/19/22 DI Result CC 01/29/22 Bone Densitometry 01/23/22 DEXA Result 01/23/22 Thyroid Ultrasound (Signed) Rhianna Etienne - 02/26/21 EKG Rpt. 10/16/20 Needle Aspiration Ultrasound (Signed) Trung Stark - 02/02/20 Thyroid Ultrasound (Signed) River Galeano - 01/25/20 DEXA Result 11/21/19 Bone Densitometry 11/21/19 Outside Echo 11/18/19 Modified Barium Swallow (Signed) [employer] Flor - 04/13/19 DI Result 10/14/18 Bone Densitometry 10/14/18 DI Result CC 10/12/18 DI Result CC 09/08/18 DI Result CC 09/08/18 DI Result CC 09/08/18 Radiology Report (Cancelled) Otis Ann - 07/21/18 Myocardial Perfusion Scan Nuc Med (Signed) Otis Ann - 07/21/18 Thyroid Ultrasound (Signed) [employer] - 07/20/18 Myocardial Perfusion Scan Nuc Med (Cancelled) 07/20/18 Telemetry Strips 07/19/18 Chest CTA (Signed) Rhianna Etienne - 07/19/18 Chest X-Ray (Signed) Carrington Mata - 07/19/18 Mammogram Screening (Signed) Bernard Matos - 04/17/18 Knee X-Ray (Signed) River Galeano - 01/07/18 Launch?[address] [place] [address] XRay Report Signed Patient: Cierra Perez MR#: [id number] : 1940 Acct:[id number] Age/Sex: 81 / F Date of Service: 04/27/22 Loc: ED Accession Number: [id number] ?? Procedure: XR chest 1V Ordering Provider: Winnie Beauchamp D.O. PROCEDURE:? XR CHEST 1V ? INDICATIONS:? chest pain ? TECHNIQUE:? One view of the chest was acquired.? ? COMPARISON:? [facility], , XR CHEST 1V, 07/19/2018, 12:08. ? FINDINGS:? ? Surgical changes and devices:? Sternal suture wires in the upper portion of the chest.? Overlying monitoring wires. ? Lungs and pleura:? Lungs are clear.? No pleural effusions or pneumothorax.? ? Mediastinum:? Mediastinal contours appear normal.? Heart size is normal.? ? Bones and chest wall:? No suspicious bony lesions.? Overlying soft tissues appear unremarkable.? ? IMPRESSION:? ? 1. No acute cardiopulmonary disease. ? ? ? Dictated by: Shamika Mclean M.D. on 04/27/2022 at 15:04 ? ? Approved by: Shamika Mclean M.D. on 04/27/2022 at 15:05?? ECG Data Attestation: I personally reviewed and interpreted this ECG as follows: Prior ECG tracings: not available for review Interpretation: Sinus rhythm first-degree AV block frequent PVCs. Rate 80 8p are 216 QRS of 116 QTC 464. Left axis deviation, LVH. Patient appears does have some PVC, appears likely have more motion artifact and not a true arrhythmia on EKG. EKG 2. Shows sinus rhythm rate of 70 9p are 202 QRS 104 QTC 479. No acute ST changes noted. Left axis deviation, LVH. Patient has prior from 10/16/2020 w [facility] appears similar. MDM Narrative Medical decision making narrative: This is an 81-year-old female who comes in with complaint of left-sided back sacral. Patient states that started several weeks ago initially was more right- sided has switched more to the left side she presents today it is increased in his coming more around to the groin before was just more into the buttock. Does not radiate all the way down the leg, no weakness numbness or tingling. She is chronic urinary incontinence but no new changes. Patient states she is felt little bit unwell in general. She noted her blood pressure was very high today. She has taken Tylenol and ibuprofen for pain with minimal improvement at 7:00 a.m., 11 30 and 1:00 p.m.. Patient's exam is overall reassuring, she does have some pain with palpation SI region. She is neurovascularly intact has excellent range of motion for an 81-year-old female of her lower extremities. She is no saddle anesthesia. Because of patient's hypertension abdominal CT was obtained no acute changes but does have some degenerative changes in the lower lumbar spine that could be contributing to her symptoms, labs including troponin negative x2. Patient's hypertension was improving without any additional intervention. Patient did have pain medication but was trending down words to the 150 range. No chest pain or pressure today. No shortness of breath or other cardiac equivalents. Patient EKGs do not show new changes. Patient's pain has improved here in the department, she has excellent range of motion and is felt safe for discharge home. Discussed with patient her findings today need for follow-up she already has PT in place for her back pelvic area and is supposed to be seen in the next week to start this. Will give a short prescription for pain medication and steroid to help with any nerve impingement. Patient and I discussed return precautions all questions answered. She notes she did take her blood pressure medication little bit early today. Discharge Plan Departure Patient Disposition: Home Clinical Impression: Acute exacerbation of chronic low back pain, Hypertension Instructions: Low Back Pain Activity Restrictions/Additional Instructions: Follow-up with Dr. Kothari, it is very appropriate to follow up for PT which sounds like is scheduled to start next week. Your CT today does show some degenerative changes particularly in the lower roxanna mbar region which maybe contributing to your symptoms, if PT is not helpful in her having persistent symptoms talk to Dr. Kothari to see if a lumbar MRI is appropriate. You can continue Tylenol up to a 1000 mg every 6 hours and/or ibuprofen up to 600 mg every 6 hours. If in adequate you can take Ultram/tramadol 1-2 tablets every 6 hours as needed for pain. This medication can make you sleepy do not drive, perform hazardous activities or make any major decisions while taking it. This medication will make you constipated please take a stool softener once to twice daily until stools are soft and regular. It may be helpful to try short course of steroids, you can start these in the morning. Take them with food. Prescription was sent to [facility] Please return for rapidly worsening symptoms, new weakness, loss of sensation, new incontinence, fevers, new abdominal pain, black or bloody stools, passing out or other new or concerning changes. Prescriptions: New tramadol 50 mg tablet 50 mg PO QID PRN (Reason: pain) Qty: 10 0RF prednisone 20 mg tablet 40 mg PO DAILY Qty: 10 0RF No Action losartan 50 mg tablet 50 mg PO DAILY Qty: 90 3RF ibandronate 150 mg tablet 150 mg PO QMONTH Qty: 3 3RF famotidine 20 mg tablet 20 mg PO DAILY nitrofurantoin macrocrystal 100 mg capsule 100 mg PO BID Qty: 10 0RF Rx Instructions: must administer with a meal/food (DME) Respironics Dreamstation CPAP Qty: 1 Dose Instruction: As directed Label Comments: Pressure: 7-14 cmH2O DME: [facility] Rx Instructions: As directed Referrals: Chris Mcginnis MD [Primary Care Provider] - Stand Alone Forms: Patient Portal/API
--- NOTE | 2022-04-27 16:01 | DI.CT.S_ITS ---
PROCEDURE: CT ABDOMEN PELVIS W CON INDICATIONS: back pain, radiates to groin, acute on chronic, htn TECHNIQUE: After the administration of intravenous contrast, axial sections acquired from the lung bases to the pubic symphysis. Coronal and sagittal reformats were performed. For radiation dose reduction, the following was used: automated exposure control, adjustment of mA and/or kV according to patient size. Patient was pre-medicated for a reported iodine allergy. No reported reaction post scan. COMPARISON: None. FINDINGS: Image quality: Excellent. Lung bases: Calcified nodule medial right lung base. Lungs are otherwise clear. Tiny fluid-filled hiatal hernia. Heart: The heart is mildly enlarged. ABDOMEN: Liver: No visible masses. Gallbladder: Surgically absent. Biliary ducts: Minimally dilated, but appropriate post cholecystectomy. Pancreas: Normal. Spleen: Normal. Adrenal Glands: No nodules. Kidneys and Ureters: Symmetric enhancement. No nephrolithiasis or hydronephrosis. No hydroureter. No ureteral calcifications. Stomach and Bowel: The stomach is filled with fluid. The small bowel is decompressed. A normal appendix is seen. Scattered colonic diverticulosis. No pericolonic inflammation. Peritoneum: No abnormal intraperitoneal fluid. No free air. Ventral Wall: Tiny fat containing umbilical hernia. Abdominal Nodes: No retroperitoneal or mesenteric adenopathy by size criteria. Vessels: Aorta and inferior vena cava are normal in size. Moderate abdominal aortic atherosclerotic calcification. PELVIS: Pelvic Organs: The uterus is absent. Ovarian tissue is not seen. Bladder: Normal wall thickness. Pelvic Nodes: No enlarged lymph nodes. Miscellaneous: No hernias are seen. Bones: Multilevel degenerative disc height loss throughout the lumbar spine, most severe at L2-3 and L4-5. There are no acute fractures or suspicious bone lesions. IMPRESSION: 1. No acute process. 2. Multilevel disc degeneration in the lumbar spine. 3. Scattered colonic diverticulosis. 4. No evidence of obstructive uropathy. Dictated by: Shamika Mclean M.D. on 04/27/2022 at 15:59 Approved by: Shamika Mclean M.D. on 04/27/2022 at 16:06
[2022-04-27] MEDS: methylPREDNISolone 125 MG/2 ML VIAL IV (16:10)
[2022-04-27] MEDS: MORPHINE 2 MG/ML INJ IV (16:10)
[2022-04-27] MEDS: CALCIUM CARBONATE 500 MG TAB PO (16:11)
[2022-04-27] MEDS: diphenhydrAMINE 50 MG/ML VIAL 25 MG IV (16:11)
[2022-04-27 17:06] LABS: Troponin I 0.015 ng/mL (0.01-0.034)
[2022-04-27] MEDS: TRAMADOL 50 MG PREPACK 1 BOTTLE MISC (17:50)
== END 2022-04-27 17:58 | disposition home or self-care (01) ==
PROVIDERS: Emergency Provider Emergency Medicine; PCP Student in an Organized Health Care Education/Training Program
DX: M54.50 Low back pain, unspecified (principal); I10 Essential (primary) hypertension; R07.9 Chest pain, unspecified; Z20.822 Contact with and (suspected) exposure to COVID-19
CPT/HCPCS: 36415; 71045; 74177; 80053; 81003; 82550; 83690; 83735; 84484; 85025; 85610; 85730; 87635; 93005; 96374; 96375; 99284; C9803; J1200; J2270; J2405; J2930; Q9967

== ENCOUNTER → 2022-05-05 10:52 | Outpatient (CLI) | payer MEDICARE, OTHER, SELFPAY ==
[2018-07-19 18:56] VITALS: BMI 38.7
[2022-05-05 11:33] LABS: Appearance Urine UA CLEAR; Bilirubin Urine UA NEGATIVE (NEGATIVE); Color Urine UA YELLOW; Glucose Urine UA NEGATIVE (Negative); Ketones Urine UA NEGATIVE (NEGATIVE); Leukocyte Esterase Urine UA NEGATIVE (NEGATIVE); Nitrite Urine UA NEGATIVE (Negative); Occult Blood Urine UA NEGATIVE (Negative); Protein Urine UA NEGATIVE (Negative); Specific Gravity Urine UA 1.015 (1.000-1.035); Urobilinogen Urine UA 0.2 E.U./dL (0.2)
[2022-05-05 11:39] LABS: Bacteria Urine None Seen; Culture Indicated Urine Cult Not Indicated; RBC Urine None Seen (0-5/HPF); Squamous Epithelial Cell Urine None Seen (0-5/HPF); WBC Urine None Seen (0-5/HPF)
== END ==
PROVIDERS: PCP Student in an Organized Health Care Education/Training Program; Referring Provider Student in an Organized Health Care Education/Training Program; Visit Provider Student in an Organized Health Care Education/Training Program
DX: R10.2 Pelvic and perineal pain (principal)
CPT/HCPCS: 81001

== ENCOUNTER → 2022-08-23 12:24 | Outpatient (CLI) | payer MEDICARE, OTHER, SELFPAY ==
[2018-07-19 18:56] VITALS: BMI 38.7
--- NOTE | 2022-08-23 12:27 | DI.RAD.S_ITS ---
PROCEDURE: XR HAND LT MIN 3V INDICATIONS: hand pain TECHNIQUE: 3 views of the hand(s) acquired. COMPARISON: None. FINDINGS: Bones: No fractures or dislocations. Carpal bones are normally aligned. No suspicious bony lesions. Periarticular osteophyte formation at the scaphoid trapezial and 1st carpometacarpal joints, as well as the interphalangeal joints of the digits. Soft tissues: No suspicious soft tissue calcifications. IMPRESSION: Osteoarthritis. No acute fracture. No osseous lesion. If symptoms and/or clinical suspicion for pathology persist, further assessment with repeat, or advanced imaging (e.g., CT, MRI, or bone scan) may be helpful for further assessment. Dictated by: Gerber Maldonado M.D. on 08/23/2022 at 12:08 Approved by: Gerber Maldonado M.D. on 08/23/2022 at 12:08
== END ==
PROVIDERS: PCP Student in an Organized Health Care Education/Training Program; Referring Provider Nurse Practitioner Family; Visit Provider Nurse Practitioner Family
DX: M19.90 Unspecified osteoarthritis, unspecified site (principal)
CPT/HCPCS: 73130

== ENCOUNTER → 2022-09-06 09:26 | Outpatient (CLI) | payer MEDICARE, OTHER, SELFPAY ==
[2018-07-19 18:56] VITALS: BMI 38.7
== END ==
PROVIDERS: PCP Student in an Organized Health Care Education/Training Program; Visit Provider Physician Assistant
DX: R30.0 Dysuria (principal)
CPT/HCPCS: 87077; 87086; 87186

== ENCOUNTER → 2022-11-28 08:52 | Outpatient (CLI) | payer MEDICARE, OTHER, SELFPAY ==
[2018-07-19 18:56] VITALS: BMI 38.7
[2022-11-28 09:47] LABS: Hemoglobin A1C% w Est Avg Glu 5.6 % (4.0-6.0)
[2022-11-28 09:53] LABS: Blood Urea Nitrogen 20 mg/dL (7-17); Calcium 9.7 mg/dL (8.4-10.2); Carbon Dioxide 28 mmol/L (22-32); Chloride 102 mmol/L (98-107); Estimated Glomerular Filt Rate > 60 mL/min (>60); Glucose 102 mg/dL (80-110); HEMOLYSIS < 15 (0-50); Potassium 4.5 mmol/L (3.4-5.1); Sodium 137 mmol/L (137-145)
== END ==
PROVIDERS: PCP Student in an Organized Health Care Education/Training Program; Referring Provider Family Medicine; Visit Provider Family Medicine
DX: Z00.00 Encounter for general adult medical examination without abnormal findings (principal); R73.01 Impaired fasting glucose; I10 Essential (primary) hypertension
CPT/HCPCS: 36415; 80048; 83036

== ENCOUNTER → 2022-12-02 15:01 | Outpatient (CLI) | payer MEDICARE, OTHER, SELFPAY ==
[2018-07-19 18:56] VITALS: BMI 38.7
[2022-12-02 18:15] LABS: Appearance Urine UA CLEAR; Bilirubin Urine UA NEGATIVE (NEGATIVE); Color Urine UA YELLOW; Glucose Urine UA NEGATIVE (Negative); Ketones Urine UA NEGATIVE (NEGATIVE); Leukocyte Esterase Urine UA TRACE (NEGATIVE); Nitrite Urine UA NEGATIVE (Negative); Occult Blood Urine UA NEGATIVE (Negative); Protein Urine UA NEGATIVE (Negative); Urobilinogen Urine UA 0.2 E.U./dL (0.2)
[2022-12-02 18:46] LABS: Bacteria Urine None Seen; Culture Indicated Urine Cult Not Indicated; RBC Urine 0-1/HPF (0-5/HPF); Squamous Epithelial Cell Urine 1-5 /HPF (0-5/HPF); WBC Urine 1-5/HPF (0-5/HPF)
== END ==
PROVIDERS: PCP Family Medicine; Referring Provider Family Medicine; Visit Provider Family Medicine
DX: R32 Unspecified urinary incontinence (principal)
CPT/HCPCS: 81001

== ENCOUNTER → 2022-12-10 07:31 | Outpatient (CLI) | payer MEDICARE, OTHER, SELFPAY ==
[2018-07-19 18:56] VITALS: BMI 38.7
--- NOTE | 2022-12-10 | DI.MG.S_ITS ---
BILATERAL DIGITAL SCREENING MAMMOGRAM 3D/2D WITH CAD: 12/10/2022 CLINICAL: Routine screening. Comparison is made to exams dated: 04/17/2018 mammogram, 03/09/2017 mammogram, and 03/05/2016 mammogram - [facility]. Both breasts are extremely dense, which lowers the sensitivity of mammography (category d />75% glandular tissue). Current study was also evaluated with a Computer Aided Detection (CAD) system. There are benign calcifications in both breasts. No significant masses, calcifications, or other findings are seen in either breast. There has been no significant interval change. IMPRESSION: BENIGN There is no mammographic evidence of malignancy. A 1 year screening mammogram is recommended. Based on the Tyrer Cuzick model (a risk assessment model) the patient's lifetime risk is 2.1% and her 10 year risk is 0.0%. According to the ACR, ACS, and NCCN guidelines, an annual breast MRI exam along with mammogram is recommended if the patient's lifetime risk is 20% or greater. This exam was interpreted at Station ID: [id number]. NOTE: For mammograms, a report in lay terms will be sent to the patient. Approximately 15% of breast malignancies will not be visualized mammographically. In the management of a palpable breast mass, a negative mammogram must not discourage biopsy of a clinically suspicious lesion. Electronically Signed By: Bernard paul/margie:12/14/2022 13:50:03 letter sent: Normal Exam ACR BI-RADS Category 2: Benign Finding(s) 3342F
== END ==
PROVIDERS: PCP Family Medicine; Referring Provider Family Medicine; Visit Provider Family Medicine
DX: Z12.31 Encounter for screening mammogram for malignant neoplasm of breast (principal)
CPT/HCPCS: 77063; 77067

== ENCOUNTER → 2023-02-20 08:30 | Outpatient (CLI) | payer MEDICARE, OTHER, SELFPAY ==
[2018-07-19 18:56] VITALS: BMI 38.7
--- NOTE | 2023-02-20 | DI.US.S_ITS ---
PROCEDURE: US CAROTID DOPPLER BI INDICATIONS: NONRHEUMATIC AORTIC VALVE STENOSIS TECHNIQUE: Color and pulse Doppler interrogation was performed of both carotid systems, with image documentation and velocity measurements. COMPARISON: None. FINDINGS: Stenosis calculations are based on SRU (Society of Radiologists in Ultrasound) criteria. Right side: Brachial blood pressure: 144/62 mm Hg. Common carotid artery peak systolic velocity: 69 cm/sec. Internal carotid artery peak systolic velocity: 64 cm/sec. Internal carotid artery end diastolic velocity: 16 cm/sec. External carotid artery peak systolic velocity: 71 cm/sec. ICA/CCA peak systolic ratio: 0.9 . Alfred scale imaging description: Mild atherosclerotic plaques. Percent internal carotid artery stenosis: Less than 50 percent stenosis . Vertebral artery: Flow direction is antegrade. Left side: Brachial blood pressure: 165/75 mm Hg. Common carotid artery peak systolic velocity: 75 cm/sec. Internal carotid artery peak systolic velocity: 74 cm/sec. Internal carotid artery end diastolic velocity: 19 cm/sec. External carotid artery peak systolic velocity: 102 cm/sec. ICA/CCA peak systolic ratio: 0.9 . Alfred scale imaging description: Mild atherosclerotic plaques. Percent internal carotid artery stenosis: Less than 50 percent stenosis . Vertebral artery: Flow direction is antegrade. IMPRESSION: Less than 50 percent stenosis of the bilateral proximal internal carotid arteries. Dictated by: Eddi Allan M.D. on 02/20/2023 at 11:04 Approved by: Eddi Allan M.D. on 02/20/2023 at 11:05
--- NOTE | 2023-02-20 08:31 | DI.US.S_ITS ---
PROCEDURE: US THYROID INDICATIONS: FOLLOW UP THYROID NODULE TECHNIQUE: Real-time scanning was performed of the thyroid gland, with image documentation. COMPARISON: [facility], US, US THYROID, 02/26/2021, 10:45. FINDINGS: Right: Thyroid lobe measures 4.7 x 2.3 x 2.0 cm. * Stable right mid/anterior nodule (1) measuring 1.3 centimeters which is solid, hypoechoic with smooth borders and peripheral calcifications, moderately suspicious. * Stable right superior nodule (2) measuring 1.2 centimeters which was previously biopsied and found benign. This nodule is solid, hypoechoic with smooth margins and punctate echogenic foci. Left: Thyroid lobe measures 3.9 x 1.9 x 1.9 cm. * Stable left mid/superior nodule (3) measuring 0.6 centimeters which is solid, hypoechoic with a smooth surface and macro calcifications, moderately suspicious. * Stable left superior nodule (4) measuring 1.1 centimeters which is solid and isoechoic/hypoechoic with a smooth surface, moderately suspicious. Isthmus: 3.4 mm thick. Lymph nodes: No regional lymphadenopathy. IMPRESSION: Stable nodules as described above which are moderately suspicious and 1 year follow-up is recommended. Stable highly suspicious nodule in the right superior thyroid which was previously biopsied and found to be benign. Dictated by: Eddi Allan M.D. on 02/20/2023 at 10:47 Approved by: Eddi Allan M.D. on 02/20/2023 at 10:53
== END ==
PROVIDERS: PCP Family Medicine; Referring Provider Family Medicine; Visit Provider Family Medicine
DX: I65.23 Occlusion and stenosis of bilateral carotid arteries (principal); I35.0 Nonrheumatic aortic (valve) stenosis; E04.2 Nontoxic multinodular goiter
CPT/HCPCS: 76536; 93880

== ENCOUNTER → 2023-03-06 13:39 | Outpatient (CLI) | payer MEDICARE, OTHER, SELFPAY ==
[2018-07-19 18:56] VITALS: BMI 38.7
[2023-03-06 15:20] LABS: Add Manual Diff / Slide Review NO; Basophils Absolute Auto 100 /uL (0-100); Eosinophils Absolute Auto 300 /uL (0-450); Eosinophils Percent Auto 4.1 % (2-4); Hematocrit 40.6 % (36-46); Hemoglobin 13.5 g/dL (12.0-16.0); Lymphocytes Absolute Auto 1800 /uL (1100-4500); Lymphocytes Percent Auto 26.9 % (25-40); Mean Corpuscular HGB Conc 33.4 % (30-36); Mean Corpuscular Hemoglobin 27.8 PG (26-34); Mean Corpuscular Volume 83.2 fL (80-100); Monocytes Absolute Auto 400 /uL (0-900); Monocytes Percent Auto 6.2 % (3-14); Neutrophils Absolute Auto 4100 /uL (1500-7000); Neutrophils Percent Auto 60.8 % (50-75); Platelet Count 198 X10^3/uL (150-400); Red Blood Cell Count 4.88 X10^6/uL (4.0-5.2); White Blood Cell Count 6.8 X10^3/uL (4.5-11.0)
[2023-03-06 15:38] LABS: Blood Urea Nitrogen 26 mg/dL (7-17); Calcium 9.5 mg/dL (8.4-10.2); Carbon Dioxide 26 mmol/L (22-32); Chloride 103 mmol/L (98-107); Estimated Glomerular Filt Rate > 60 mL/min (>60); Glucose 98 mg/dL (80-110); HEMOLYSIS < 15 (0-50); Potassium 3.9 mmol/L (3.4-5.1); Sodium 135 mmol/L (137-145)
== END ==
PROVIDERS: PCP Family Medicine; Referring Provider Nurse Practitioner Gerontology; Visit Provider Nurse Practitioner Gerontology
DX: I10 Essential (primary) hypertension (principal); I35.0 Nonrheumatic aortic (valve) stenosis; I47.10 Supraventricular tachycardia, unspecified; Z78.9 Other specified health status; I35.1 Nonrheumatic aortic (valve) insufficiency
CPT/HCPCS: 36415; 80048; 85025

== ENCOUNTER → 2023-06-02 12:37 | Outpatient (CLI) | payer MEDICARE, OTHER, SELFPAY ==
[2018-07-19 18:56] VITALS: BMI 38.7
[2023-06-02 13:45] LABS: Add Manual Diff / Slide Review NO; Basophils Absolute Auto 200 /uL (0-100); Eosinophils Absolute Auto 400 /uL (0-450); Eosinophils Percent Auto 5.8 % (2-4); Hematocrit 40.9 % (36-46); Hemoglobin 13.7 g/dL (12.0-16.0); Lymphocytes Absolute Auto 2100 /uL (1100-4500); Mean Corpuscular HGB Conc 33.5 % (30-36); Mean Corpuscular Hemoglobin 27.5 PG (26-34); Monocytes Absolute Auto 400 /uL (0-900); Monocytes Percent Auto 5.1 % (3-14); Neutrophils Absolute Auto 4500 /uL (1500-7000); Neutrophils Percent Auto 59.1 % (50-75); Platelet Count 164 X10^3/uL (150-400); Red Blood Cell Count 4.98 X10^6/uL (4.0-5.2); Red Cell Distribution Width 14.9 % (11.6-14.8); White Blood Cell Count 7.6 X10^3/uL (4.5-11.0)
[2023-06-02 13:51] LABS: BUN Creatinine Ratio 23.2 (6-22); Blood Urea Nitrogen 23 mg/dL (7-17); Calcium 9.7 mg/dL (8.4-10.2); Carbon Dioxide 27 mmol/L (22-32); Chloride 103 mmol/L (98-107); Estimated Glomerular Filt Rate 57 mL/min (>60); Glucose 101 mg/dL (80-110); HEMOLYSIS < 15 (0-50); Sodium 137 mmol/L (137-145)
== END ==
PROVIDERS: PCP Family Medicine; Referring Provider Physician Assistant; Visit Provider Physician Assistant
DX: Z48.812 Encounter for surgical aftercare following surgery on the circulatory system (principal)
CPT/HCPCS: 36415; 80048; 85025

== ENCOUNTER → 2023-09-10 07:32 | Outpatient (CLI) | payer MEDICARE, OTHER, SELFPAY ==
[2018-07-19 18:56] VITALS: BMI 38.7
[2023-09-10 07:57] LABS: Add Manual Diff / Slide Review NO; Basophils Absolute Auto 100 /uL (0-100); Basophils Percent Auto 1.4 % (0-2); Eosinophils Absolute Auto 600 /uL (0-450); Eosinophils Percent Auto 6.7 % (2-4); Hematocrit 38.6 % (36-46); Hemoglobin 13.1 g/dL (12.0-16.0); Lymphocytes Absolute Auto 1800 /uL (1100-4500); Lymphocytes Percent Auto 21.3 % (25-40); Mean Corpuscular HGB Conc 33.8 % (30-36); Mean Corpuscular Hemoglobin 27.8 PG (26-34); Mean Corpuscular Volume 82.2 fL (80-100); Monocytes Absolute Auto 500 /uL (0-900); Monocytes Percent Auto 6.4 % (3-14); Neutrophils Absolute Auto 5400 /uL (1500-7000); Neutrophils Percent Auto 64.2 % (50-75); Platelet Count 177 X10^3/uL (150-400); Red Cell Distribution Width 15.7 % (11.6-14.8); White Blood Cell Count 8.4 X10^3/uL (4.5-11.0)
[2023-09-10 08:27] LABS: BUN Creatinine Ratio 35.3 (6-22); Blood Urea Nitrogen 24 mg/dL (7-17); Carbon Dioxide 27 mmol/L (22-32); Chloride 107 mmol/L (98-107); Cholesterol 145 mg/dL (140-199); Estimated Glomerular Filt Rate > 60 mL/min (>60); Glucose 123 mg/dL (80-110); HDL Cholesterol 60 mg/dL (40-60); HEMOLYSIS < 15 (0-50); LDL Cholesterol Calculated 70 mg/dL (<100); Magnesium 2.2 mg/dL (1.6-2.3); Potassium 4.7 mmol/L (3.4-5.1); Sodium 138 mmol/L (137-145); Triglycerides 77 mg/dL (35-150)
[2023-09-10 08:55] LABS: Thyroid Stimulating Hormone 1.85 uIU/mL (0.47-4.68)
== END ==
PROVIDERS: PCP Family Medicine; Referring Provider Nurse Practitioner; Visit Provider Nurse Practitioner
DX: R00.2 Palpitations (principal); I25.5 Ischemic cardiomyopathy
CPT/HCPCS: 36415; 80048; 80061; 83735; 84443; 85025

== ENCOUNTER 2023-10-01 08:30 | Outpatient (RCR) | payer MEDICARE, OTHER, SELFPAY ==
[2018-07-19 18:56] VITALS: BMI 38.7
== END 2023-10-01 10:30 ==
LOC: CAR 08:30
PROVIDERS: PCP Family Medicine; Referring Provider Internal Medicine Interventional Cardiology; Visit Provider Internal Medicine Interventional Cardiology
DX: Z95.2 Presence of prosthetic heart valve (principal)
CPT/HCPCS: 93798

== ENCOUNTER 2024-02-11 09:47 | Emergency (ER) | payer MEDICARE, OTHER, SELFPAY ==
[2018-07-19 18:56] VITALS: BMI 38.7
[2024-02-11] VITALS (13 sets, daily range): BP systolic 148–196; BP diastolic 70–91; PULSE 59–74; RESP 15–26; TEMP 36.1; O2SAT 91–99; BMI 39.6
--- NOTE | 2024-02-11 10:07 | DI.RAD.S_ITS ---
PROCEDURE: XR CHEST 1V INDICATIONS: chest pain TECHNIQUE: One view of the chest was acquired. COMPARISON: [facility], CR, XR CHEST 1V, 04/27/2022, 14:38. [facility], CR, XR CHEST 1V, 07/19/2018, 12:08. FINDINGS: Surgical changes and devices: Sternotomy wires and mediastinal clips are present. There is a prosthetic aortic valve. Lungs and pleura: Lungs are clear. No pleural effusions or pneumothorax. Mediastinum: Mediastinal contours appear normal. Heart size is normal. Bones and chest wall: No suspicious bony lesions. Overlying soft tissues appear unremarkable. Suspected mild chronic posttraumatic deformity of the left proximal humerus. IMPRESSION: No acute cardiopulmonary abnormality is seen. Approved by: Teodoro Jones M.D. on 02/11/2024 at 10:37
--- NOTE | 2024-02-11 10:07 | EKG_ITS ---
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
[2024-02-11 10:36] LABS: Add Manual Diff / Slide Review NO; Basophils Absolute Auto 100 /uL (0-100); Basophils Percent Auto 1.2 % (0-2); Eosinophils Absolute Auto 400 /uL (0-450); Eosinophils Percent Auto 4.6 % (2-4); Hematocrit 44.8 % (36-46); Hemoglobin 14.7 g/dL (12.0-16.0); Lymphocytes Absolute Auto 2000 /uL (1100-4500); Lymphocytes Percent Auto 22.3 % (25-40); Mean Corpuscular HGB Conc 32.8 % (30-36); Mean Corpuscular Hemoglobin 27.4 PG (26-34); Mean Corpuscular Volume 83.5 fL (80-100); Monocytes Absolute Auto 600 /uL (0-900); Monocytes Percent Auto 6.2 % (3-14); Neutrophils Absolute Auto 5900 /uL (1500-7000); Neutrophils Percent Auto 65.7 % (50-75); Platelet Count 153 X10^3/uL (150-400); Red Blood Cell Count 5.37 X10^6/uL (4.0-5.2); White Blood Cell Count 9.1 X10^3/uL (4.5-11.0)
[2024-02-11 10:46] LABS: PTT Partial Thromboplastin Tim 23 SECONDS (25.1-36.5)
[2024-02-11 10:50] LABS: Alanine Aminotransferase 26 IU/L (<35); Albumin 4.5 g/dL (3.5-5.0); Albumin Globulin Ratio 1.4 (1.0-2.8); Alkaline Phosphatase 74 U/L (38-126); Aspartate Aminotransferase 29 IU/L (14-36); BUN Creatinine Ratio 36.8 (6-22); Bilirubin Total 1.4 mg/dL (0.2-1.3); Blood Urea Nitrogen 25 mg/dL (7-17); Calcium 9.7 mg/dL (8.4-10.2); Carbon Dioxide 25 mmol/L (22-32); Chloride 104 mmol/L (98-107); Creatine Kinase 101 U/L (30-135); Estimated Glomerular Filt Rate > 60 mL/min (>60); Globulin 3.2 g/dL (1.7-4.1); Glucose 107 mg/dL (80-110); HEMOLYSIS < 15 (0-50); Lipase 67 U/L (23-300); Magnesium 2.1 mg/dL (1.6-2.3); Potassium 4.3 mmol/L (3.4-5.1); Sodium 137 mmol/L (137-145); Total Protein 7.7 g/dL (6.3-8.2)
[2024-02-11 11:01] LABS: NT-proBNP (BNP-Adult 18+) 103 pg/mL (<450); Troponin I < 0.012 ng/mL (0.01-0.034)
--- NOTE | 2024-02-11 11:27 | ED.DIZZY ---
HPI - Dizziness General Chief Complaint: Dizziness Stated Complaint: head is very light and walking not steady Time Seen by Provider: 02/11/24 10:48 Source: patient Mode of arrival: Ambulatory History of Present Illness HPI Narrative: Patient is a 83-year-old female history of aortic stenosis status post replacement, hypertension hyperlipidemia presenting today with increasing dizziness. He does have a history of vertigo she went to physical therapy for it. She reports doing Danna maneuver at home which helped. Does have a history of PVCs she currently is in trigeminy she says that happened since her valve replacement. She reports that she is dizzy every time she stands up or turns her head she does sign position of comfort. She has no numbness tingling or weakness. No speech difficulty. He reports that the vertigo was a little bit different last time. She does not want meclizine only made her sleepy and did not help. Related Data Home Medications Medication Instructions Recorded Confirmed atorvastatin 80 mg tablet 80 mg PO DAILY 06/02/23 09/01/23 carvedilol 6.25 mg tablet 6.25 mg PO BID 06/02/23 09/01/23 clopidogrel 75 mg tablet 75 mg PO DAILY 06/02/23 09/01/23 Previous Rx's Medication Instructions Recorded losartan 50 mg tablet 50 mg PO BID #180 tabs 06/02/23 Allergies Allergy/AdvReac Type Severity Reaction Status Date / Time oxycodone [OXYCODONE] Allergy Severe ANAPHYLAXIS Verified 02/11/24 09:52 iodine Allergy Mild Rash Verified 02/11/24 09:52 Topical only per pt silver Allergy Mild itchy red Verified 02/11/24 09:52 [From Tegaderm AG Mesh] rash celecoxib [From Celebrex] AdvReac Severe GERD, Verified 02/11/24 09:52 Palpitations alendronate sodium AdvReac Intermediate Jaw cramps Verified 02/11/24 09:52 Patient History Medical History (Updated 02/11/24 @ 12:10 by Shanae Rivera DO) Sleep apnea Severe aortic stenosis by prior echocardiogram Encounter for initial annual wellness visit (AWV) in 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 Anxiety Overactive bladder Upper airway resistance syndrome Edema extremities Paroxysmal vertigo Hypothyroidism Osteoarthritis Hypoventilation syndrome (2018) Restless legs syndrome Surgical History Status post transcatheter aortic valve replacement (TAVR) using bioprosthesis H/O thymectomy Status post bilateral cataract extraction Hx of left breast biopsy Hx of section History of bunionectomy of right great toe Hx of thymectomy Hx laparoscopic cholecystectomy H/O: hysterectomy History of arthroplasty of right knee History of left knee surgery Family History Mother Cardiac arrhythmia Heart failure Heart disease Social History (Updated 02/23/23 @ 15:02 by Anu Greenwood RN) marital status: details: has one daughter, [place], lives nearby household members: other (lives alone) lives independently: Yes caregiver/support person: No occupational status: other (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, [employer]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: 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, living in [facility] Smoking Status: Never smoker alcohol intake: former Smoking Status: Never smoker alcohol intake frequency: holidays/special occasions only Substance Use Type: does not use Exam Initial Vital Signs Initial Vital Signs: Vital Signs Temperature 97.0 F L 02/11/24 09:52 Pulse Rate 60 02/11/24 09:52 Respiratory Rate 15 02/11/24 09:52 Pulse Oximetry 98 02/11/24 09:52 Oxygen Delivery Method Room Air 02/11/24 09:52 GENERAL: Alert pleasant 83-year-old female HEENT: Head atraumatic,EOMI, pupils reactive, no nystagmus face symmetric, moist mucous membranes CARDIOVASCULAR: Regular rate and rhythm without murmurs, rubs or gallops. RESPIRATORY: Breath sounds equal bilaterally, no wheezes rales or rhonchi. ABDOMEN: Soft, nontender. Normoactive bowel sounds all 4 quadrants. No guarding or rebound. EXTREMITIES: Normal range of motion, no clubbing or edema. Neurovascularly intact NEUROLOGICAL: Alert and oriented x4.Normal gait and speech. Cranial nerves II through XII grossly intact. Good [id number] good wgze-mo-[id number] no facial droop no aphasia no dysarthria SKIN: Warm, dry, no laceration, no petechiae, no rashes or lesions. Scores NIH Stroke Scale Level of Conciousness: Alert, keenly responsive Ask month/age: Answers both questions correctly. Open/close eyes, close hand: Performs both tasks correctly Best gaze horizontal: Normal Visual zayas: No visual loss Facial palsy: Normal symetrical movement Left arm drift: No drift for full 10 sec Right arm drift: No drift for full 10 sec Left leg drift: No drift for full 5 sec Right leg drift: No drift for full 5 sec Limb ataxia: Absent Sensory on face/arms/legs: Normal, no sensory loss Best language: No aphasia, normal Dysarthria: Normal Extinction or inattention: No abnormality Total NIH Stroke scale score: 0 Course Orders Ordered: ED Orders 02/11/24 10:07 XR chest 1V Stat EKG-12 Lead Stat 02/11/24 10:20 Complete Blood Count AUTO DIFF Stat Comprehensive Metabolic Panel Stat Lipase Stat Magnesium Stat NT-proBNP (BNP-Adult 18+) Stat PTT Partial Thromboplastin Chu Stat Prothrombin Time INR Stat Troponin & CK Cardiac Panel Stat 02/11/24 11:53 CT head/brain wo con Stat Vital Signs Vital signs: Vital Signs - 8 hr 02/11/24 11:05 02/11/24 11:30 02/11/24 11:31 Pulse Rate 59 L 64 66 Respiratory Rate 21 25 H Blood Pressure Pulse Oximetry 99 97 96 Oxygen Delivery Method Room Air 02/11/24 11:31 02/11/24 12:09 02/11/24 12:10 Pulse Rate 64 63 Respiratory Rate 16 18 Blood Pressure 196/91 H Pulse Oximetry 99 Oxygen Delivery Method 02/11/24 12:10 02/11/24 12:30 02/11/24 12:31 Pulse Rate 59 L 62 Respiratory Rate 15 15 Blood Pressure 169/76 H Pulse Oximetry 98 98 Oxygen Delivery Method Room Air 02/11/24 12:31 02/11/24 12:42 02/11/24 12:42 Pulse Rate 63 Respiratory Rate 21 Blood Pressure 166/70 H 163/70 H Pulse Oximetry 99 Oxygen Delivery Method 02/11/24 12:45 Pulse Rate 67 Respiratory Rate 20 Blood Pressure 163/70 H Pulse Oximetry 97 Oxygen Delivery Method Room Air MDM - Dizziness Lab Data 02/11/24 10:20 02/11/24 10:20 Labs: Lab Results 02/11/24 Range/Units 10:20 WBC 9.1 (4.5-11.0) X10^3/uL RBC 5.37 H (4.0-5.2) X10^6/uL Hgb 14.7 (12.0-16.0) g/dL Hct 44.8 (36-46) % MCV 83.5 (80-100) fL MCH 27.4 (26-34) PG MCHC 32.8 (30-36) % RDW 16.0 H (11.6-14.8) % Plt Count 153 (150-400) X10^3/uL Neut % (Auto) 65.7 (50-75) % Lymph % (Auto) 22.3 L (25-40) % Yates % (Auto) 6.2 (3-14) % Eos % (Auto) 4.6 H (2-4) % Baso % (Auto) 1.2 (0-2) % Neut # (Auto) 5900 (7631-6705) /uL Lymph # (Auto) 2000 (8076-5359) /uL Yates # (Auto) 600 (0-900) /uL Eos # (Auto) 400 (0-450) /uL Baso # (Auto) 100 (0-100) /uL PT 11.0 (9.4-12.5) SECONDS INR 1.0 (0.9-1.3) APTT 23 L (25.1-36.5) SECONDS Sodium 137 (137-145) mmol/L Potassium 4.3 (3.4-5.1) mmol/L Chloride 104 (98-107) mmol/L Carbon Dioxide 25 (22-32) mmol/L BUN 25 H (7-17) mg/dL Creatinine 0.68 (0.52-1.04) mg/dL Estimated GFR > 60 (>60) mL/min BUN/Creatinine Ratio 36.8 H (6-22) Glucose 107 (80-110) mg/dL Calcium 9.7 (8.4-10.2) mg/dL Magnesium 2.1 (1.6-2.3) mg/dL Total Bilirubin 1.4 H (0.2-1.3) mg/dL AST 29 (14-36) IU/L ALT 26 (<35) IU/L Alkaline Phosphatase 74 (38-126) U/L Total Creatine Kinase 101 (30-135) U/L Troponin I < 0.012 (0.01-0.034) ng/mL NT-Pro-B Natriuret Pep 103 (<450) pg/mL Total Protein 7.7 (6.3-8.2) g/dL Albumin 4.5 (3.5-5.0) g/dL Globulin 3.2 (1.7-4.1) g/dL Albumin/Globulin Ratio 1.4 (1.0-2.8) Lipase 67 (23-300) U/L Urine Dip Bedside Urine Glucose Negative Bedside Urine Bilirubin - Negative Bedside Urine Ketone - Negative Urine Specific [place] 1.005 Bedside Urine Occult Blood - Negative Bedside Urine pH 6.5 Bedside Urine Protein - Negative Bedside Urine Urobilinogen - Negative Bedside Urine Nitrite - Negative Bedside Urine Leukocytes - Negative Esterase Imaging Data CT scan - head: Radiologist's Impression: PROCEDURE: CT HEAD/BRAIN WO CON INDICATIONS: dizzy TECHNIQUE: Noncontrast 4.5 mm thick angled axial sections acquired from the foramen magnum to the vertex, with coronal and sagittal reformats. For radiation dose reduction, the following was used: automated exposure control, adjustment of mA and/or kV according to patient size. COMPARISON: None. FINDINGS: Image quality: Diagnostic. CSF spaces: Basal cisterns are patent. No extra-axial fluid collections. The ventricles are symmetric in size and shape. Brain: No intracranial bleeds or masses. There is cerebral volume loss for age, with resultant ventricular and sulcal prominence. There are periventricular and deep white matter chronic small vessel ischemic changes. There is intracranial internal carotid artery atherosclerosis. Skull and face: Calvarium and visualized facial bones appear intact, without suspicious lesions. Sinuses: Visualized sinuses and mastoids are clear. IMPRESSION: 1. No acute intracranial pathology. 2. Mild chronic microvascular ischemic changes and generalized parenchymal volume loss. Approved by: Teodoro Jones M.D. on 02/11/2024 at 12:14 Chest x-ray: Radiologist's Impression: PROCEDURE: XR CHEST 1V INDICATIONS: chest pain TECHNIQUE: One view of the chest was acquired. COMPARISON: [facility], CR, XR CHEST 1V, 04/27/2022, 14:38. [facility], CR, XR CHEST 1V, 07/19/2018, 12:08. FINDINGS: Surgical changes and devices: Sternotomy wires and mediastinal clips are present. There is a prosthetic aortic valve. Lungs and pleura: Lungs are clear. No pleural effusions or pneumothorax. Mediastinum: Mediastinal contours appear normal. Heart size is normal. Bones and chest wall: No suspicious bony lesions. Overlying soft tissues appear unremarkable. Suspected mild chronic posttraumatic deformity of the left proximal humerus. IMPRESSION: No acute cardiopulmonary abnormality is seen. Approved by: Teodoro Jones M.D. on 02/11/2024 at 10:37 ECG Data Attestation: I personally reviewed and interpreted this ECG as follows: Prior ECG tracings: available for review Interpretation: Sinus rhythm rate 61 VA interval 196 QRS 102 QTC 453 trigeminy frequent PVCs noted new from previous EKGs in 2022 Patient reports this is not new she has had it since her valve surgery this year MDM Narrative Medical decision making narrative: [facility] CC: Dizziness lightheadedness Complicating co-morbidities: Aortic valve replacement, history of vertigo Medical records reviewed: Previous records reviewed Differential considered: Carotid stenosis BPPV H medication related Exam documented above, pertinent findings include: No obvious nystagmus no focal deficits NIH 0, neurovascularly intact very pleasant Lab Test results independently reviewed as above. Pertinent findings: troponin is negative CBC does not show any leukocytosis or anemia CMP does not show any electrolyte abnormality or SARANYA Independently reviewed EKG as above trigeminy with PVCs no ischemic Imaging studies independently reviewed: Head CT no intracranial hemorrhage Chest x-ray no cardiopulmonary process Consultations: None Treatments: None offered meclizine she has not had success with this before Re-evaluations: Attempted bedside Danna maneuver patient is definitely worse with movement can find positions of comfort. Danna maneuver did not really help. Discussion: Patient 83-year-old female history of vertigo presenting today with dizziness lightheadedness. She was really have nystagmus but symptoms are definitely resolved with certain positions and worsened with other positions. Attempted bedside Danna maneuver which did not help. Discussion with patient about medications she does not want meclizine. Agree to a CT but she did not want contrast no CT angio was done. At this time with history of vertigo symptoms consistent with vertigo I suspect vertigo Discharge Plan Departure Patient Disposition: Home Clinical Impression: Benign paroxysmal vertigo Instructions: DI for Vertigo Activity Restrictions/Additional Instructions: *You have been diagnosed with vertigo *What to do: At this time I think your symptoms are most likely vertigo related. Blood work and imaging today are negative May do Danna maneuver at home *Continue to take medications as directed *Follow up with your primary care provider in 2-3 days or call [phone] *Return to ER if you should have increasing dizziness weakness numbness tingling or any new, worsening or concerning symptoms Prescriptions: No Action atorvastatin 80 mg tablet 80 mg PO DAILY carvedilol 6.25 mg tablet 6.25 mg PO BID clopidogrel 75 mg tablet 75 mg PO DAILY losartan 50 mg tablet 50 mg PO BID Qty: 180 3RF Referrals: Jenny Gonzalez DO [Primary Care Provider] - Stand Alone Forms: Patient Portal/API/Survey
--- NOTE | 2024-02-11 11:53 | DI.CT.S_ITS ---
PROCEDURE: CT HEAD/BRAIN WO CON INDICATIONS: dizzy TECHNIQUE: Noncontrast 4.5 mm thick angled axial sections acquired from the foramen magnum to the vertex, with coronal and sagittal reformats. For radiation dose reduction, the following was used: automated exposure control, adjustment of mA and/or kV according to patient size. COMPARISON: None. FINDINGS: Image quality: Diagnostic. CSF spaces: Basal cisterns are patent. No extra-axial fluid collections. The ventricles are symmetric in size and shape. Brain: No intracranial bleeds or masses. There is cerebral volume loss for age, with resultant ventricular and sulcal prominence. There are periventricular and deep white matter chronic small vessel ischemic changes. There is intracranial internal carotid artery atherosclerosis. Skull and face: Calvarium and visualized facial bones appear intact, without suspicious lesions. Sinuses: Visualized sinuses and mastoids are clear. IMPRESSION: 1. No acute intracranial pathology. 2. Mild chronic microvascular ischemic changes and generalized parenchymal volume loss. Approved by: Teodoro Jones M.D. on 02/11/2024 at 12:14
== END 2024-02-11 12:49 | disposition home or self-care (01) ==
PROVIDERS: Emergency Provider Emergency Medicine; PCP Family Medicine
DX: H81.10 Benign paroxysmal vertigo, unspecified ear (principal); R07.9 Chest pain, unspecified
CPT/HCPCS: 70450; 71045; 80053; 81003; 82550; 83690; 83735; 83880; 84484; 85025; 85610; 85730; 93005; 93010; 99284

== ENCOUNTER → 2024-03-15 07:36 | Outpatient (CLI) | payer MEDICARE, OTHER, SELFPAY ==
[2018-07-19 18:56] VITALS: BMI 38.7
[2024-03-15 08:37] LABS: Add Manual Diff / Slide Review NO; Basophils Absolute Auto 100 /uL (0-100); Basophils Percent Auto 0.8 % (0-2); Eosinophils Absolute Auto 300 /uL (0-450); Eosinophils Percent Auto 4.2 % (2-4); Hemoglobin 13.8 g/dL (12.0-16.0); Lymphocytes Absolute Auto 1900 /uL (1100-4500); Lymphocytes Percent Auto 26.1 % (25-40); Mean Corpuscular HGB Conc 33.8 % (30-36); Mean Corpuscular Hemoglobin 28.2 PG (26-34); Mean Corpuscular Volume 83.3 fL (80-100); Monocytes Absolute Auto 400 /uL (0-900); Monocytes Percent Auto 5.9 % (3-14); Neutrophils Absolute Auto 4600 /uL (1500-7000); Platelet Count 167 X10^3/uL (150-400); Red Blood Cell Count 4.92 X10^6/uL (4.0-5.2); Red Cell Distribution Width 15.9 % (11.6-14.8); White Blood Cell Count 7.4 X10^3/uL (4.5-11.0)
[2024-03-15 09:01] LABS: BUN Creatinine Ratio 32.6 (6-22); Blood Urea Nitrogen 28 mg/dL (7-17); Calcium 9.4 mg/dL (8.4-10.2); Carbon Dioxide 28 mmol/L (22-32); Chloride 103 mmol/L (98-107); Estimated Glomerular Filt Rate > 60 mL/min (>60); Glucose 112 mg/dL (80-110); HEMOLYSIS < 15 (0-50); Potassium 4.5 mmol/L (3.4-5.1); Sodium 137 mmol/L (137-145)
== END ==
LOC: LAB 07:40
PROVIDERS: PCP Family Medicine; Referring Provider Internal Medicine Interventional Cardiology; Visit Provider Internal Medicine Interventional Cardiology
DX: I35.0 Nonrheumatic aortic (valve) stenosis (principal); Z95.2 Presence of prosthetic heart valve
CPT/HCPCS: 36415; 80048; 85025

== ENCOUNTER → 2024-03-21 14:21 | Outpatient (CLI) | payer MEDICARE, OTHER, SELFPAY ==
[2018-07-19 18:56] VITALS: BMI 38.7
--- NOTE | 2024-03-21 14:22 | DI.US.S_ITS ---
PROCEDURE: US THYROID INDICATIONS: f/u nodule TECHNIQUE: Real-time scanning was performed of the thyroid gland, with image documentation. COMPARISON: [facility], US, US THYROID, 02/20/2023, 8:53. [facility], US, US THYROID, 02/26/2021, 10:45. [facility], US, US THYROID, 01/25/2020, 14:03. [facility], US, US THYROID, 07/20/2018, 9:27. FINDINGS: Thyroid: Right lobe measures 4.9 x 2.1 x 2.0 cm. Left lobe measures 5.1 x 1.6 x 1.7 cm. Isthmus is 0.4 cm thick. Echotexture is heterogenous. Nodule number: 1 Location: Right midpole Size: 1.5 x 1.4 x 1.2 cm. Composition: Solid Echogenicity: Isoechoic Shape: wider than tall. Margins: Ill-defined Echogenic foci: Macro calcification Total points: 4 ACR TI-RADS category: TR 4 Nodule number: 2 (previously biopsied-benign) Location: Right superior pole Size: 1.0 x 0.9 x 0.7 cm. Composition: Solid Echogenicity: Hypoechoic Shape: wider than tall. Margins: Smooth Echogenic foci: None Total points: 4 ACR TI-RADS category: TR 4 Nodule number: 3 Location: Left midpole Size: 0.9 x 0.6 x 0.6 cm. Composition: Solid Echogenicity: Isoechoic Shape: wider than tall. Margins: Smooth Echogenic foci: None Total points: 3 ACR TI-RADS category: TR 3 Nodule number: 4 Location: Left superior pole Size: 0.9 x 1.0 x 0.8 cm. Composition: Solid Echogenicity: Isoechoic Shape: wider than tall. Margins: Smooth Echogenic foci: None Total points: 3 ACR TI-RADS category: TR 3 IMPRESSION: Mild-moderately suspicious bilateral thyroid nodules. FNA biopsy of right midpole nodule #1 Recommended. ACR TI-RADS definitions and recommendations: TI-RADS 1 (benign): 0 points. FNA not needed. TI-RADS 2 (not suspicious): 2 points. FNA not needed. TI-RADS 3: 3 points. * FNA if 2.5 cm or larger, follow up if 1.5 cm or larger (at 1, 3, and 5 years). TI-RADS 4: 4-6 points. * FNA if 1.5 cm or larger, follow up if 1 cm or larger (at 1, 2, 3, and 5 years). TI-RADS 5: 7 points or more. * FNA if 1 cm or larger, follow up if 0.5 cm or larger (every year for 5 years). Dictated by: Gunnar Ga M.D. on 03/21/2024 at 20:42 Approved by: Gunnar Ga M.D. on 03/21/2024 at 20:49
== END ==
PROVIDERS: PCP Family Medicine; Referring Provider Family Medicine; Visit Provider Family Medicine
DX: E04.2 Nontoxic multinodular goiter (principal)
CPT/HCPCS: 76536

== ENCOUNTER 2024-05-11 09:40 | Emergency (ER) | payer MEDICARE, OTHER, SELFPAY ==
[2018-07-19 18:56] VITALS: BMI 38.7
[2024-05-11] VITALS (12 sets, daily range): BP systolic 172–222; BP diastolic 77–128; PULSE 63–69; RESP 15–29; TEMP 37; O2SAT 96–99; BMI 41.3
--- NOTE | 2024-05-11 09:52 | EKG_ITS ---
[address] [address] Test Date: 2024-05-11 Pat Name: Cierra Perez Department: Room: Gender: Female Outpatient Surgery Rn: MARIO : 1940 Requested By: Order Number: [id number] Reading MD: William Barboza Measurements Intervals [place] Rate: 81 P: 46 AL: 208 QRS: -26 QRSD: 98 T: 46 QT: 424 QTc: 492 Interpretive Statements Sinus rhythm with sinus arrhythmia with frequent and consecutive premature ventricular complexes Moderate voltage criteria for LVH, may be normal variant ( R in aVL , [place] product ) Prolonged QT Electronically Signed On 05-11-2024 23:45:59 PST by William Barboza
--- NOTE | 2024-05-11 09:52 | DI.RAD.S_ITS ---
PROCEDURE: XR CHEST 1V INDICATIONS: chest pain TECHNIQUE: One view of the chest was acquired. COMPARISON: [facility], CR, XR CHEST 1V, 02/11/2024, 10:19. FINDINGS: Surgical changes and devices: Remote midline sternotomy. Percutaneous aortic valve. Lungs and pleura: Lungs are clear. No pleural effusions or pneumothorax. Mediastinum: Mediastinal contours appear normal. Heart size is normal. Bones and chest wall: No suspicious bony lesions. Overlying soft tissues appear unremarkable. IMPRESSION: No acute cardiopulmonary abnormality is seen. Dictated by: Georges Woods M.D. on 05/11/2024 at 11:07 Approved by: Georges Woods M.D. on 05/11/2024 at 11:07
[2024-05-11 10:04] LABS: Add Manual Diff / Slide Review NO; Basophils Absolute Auto 100 /uL (0-100); Basophils Percent Auto 1.3 % (0-2); Eosinophils Absolute Auto 400 /uL (0-450); Eosinophils Percent Auto 4.9 % (2-4); Hematocrit 42.7 % (36-46); Hemoglobin 14.3 g/dL (12.0-16.0); Lymphocytes Absolute Auto 1900 /uL (1100-4500); Lymphocytes Percent Auto 24.1 % (25-40); Mean Corpuscular HGB Conc 33.5 % (30-36); Mean Corpuscular Hemoglobin 28.1 PG (26-34); Monocytes Absolute Auto 600 /uL (0-900); Monocytes Percent Auto 7.5 % (3-14); Neutrophils Absolute Auto 4900 /uL (1500-7000); Neutrophils Percent Auto 62.2 % (50-75); Platelet Count 163 X10^3/uL (150-400); Red Blood Cell Count 5.09 X10^6/uL (4.0-5.2); Red Cell Distribution Width 15.9 % (11.6-14.8); White Blood Cell Count 7.9 X10^3/uL (4.5-11.0)
[2024-05-11 10:07] LABS: Alanine Aminotransferase 34 IU/L (<35); Albumin 4.5 g/dL (3.5-5.0); Albumin Globulin Ratio 1.5 (1.0-2.8); Alkaline Phosphatase 54 U/L (38-126); Aspartate Aminotransferase 42 IU/L (14-36); BUN Creatinine Ratio 33.3 (6-22); Bilirubin Total 1.4 mg/dL (0.2-1.3); Blood Urea Nitrogen 25 mg/dL (7-17); Calcium 9.1 mg/dL (8.4-10.2); Carbon Dioxide 21 mmol/L (22-32); Chloride 106 mmol/L (98-107); Creatine Kinase 107 U/L (30-135); Estimated Glomerular Filt Rate > 60 mL/min (>60); Globulin 3.1 g/dL (1.7-4.1); Glucose 107 mg/dL (80-110); HEMOLYSIS 48 (0-50); Lipase 64 U/L (23-300); Magnesium 1.9 mg/dL (1.6-2.3); Potassium 4.4 mmol/L (3.4-5.1); Sodium 135 mmol/L (137-145); Total Protein 7.6 g/dL (6.3-8.2)
--- NOTE | 2024-05-11 10:10 | PC.NURSE ---
Pt up to [facility]sc with stand by assist. states that she got very dizzy when she stood.
--- NOTE | 2024-05-11 10:13 | DI.MRI.S_ITS ---
PROCEDURE: MR HEAD/BRAIN WO CON INDICATIONS: new onset dizziness, stroke suspected TECHNIQUE: Non-contrast axial T1 spin echo, axial T2 fast spin echo, sagittal and axial FLAIR, coronal T2 fast spin echo, axial gradient echo, axial diffusion and ADC through the brain. COMPARISON: None. FINDINGS: Image quality: Excellent. CSF spaces: Ventricles appear symmetric in size and shape. Basal cisterns are patent. No extra-axial fluid collections. Brain: No intracranial bleeds or mass effects. There is cerebral volume loss for age. There are periventricular and deep white matter chronic small vessel ischemic changes. Brainstem appears normal. On diffusion-weighted images, there are a few scattered foci of increased signal seen on the left. However, these do not correspond to associated reduced signal on the ADC map and are seen as T2 bright foci. Therefore, there are attributed to artifact. Normal intravascular flow voids are present. Relatively prominent perivascular spaces are noted. Skull and face: Calvarial bone marrow is normal in signal. Orbits are normal. Note is made of bilateral lens replacements. Sinuses: Sinuses and mastoids are clear. IMPRESSION: No findings of acute or subacute infarction can be seen. Note is made of age-appropriate brain parenchymal volume loss and chronic small vessel ischemic changes. Dictated by: Ghulam Rich M.D. on 05/11/2024 at 10:18 Approved by: Ghulam Rich M.D. on 05/11/2024 at 10:21
--- NOTE | 2024-05-11 10:16 | ED_ITS ---
HPI - Dizziness General Chief Complaint: Dizziness Stated Complaint: Dizziness Time Seen by Provider: 05/11/24 10:00 History of Present Illness HPI Narrative: An 83-year-old female with a history of ischemic cardiomyopathy transaortic valve replacement hypertension and vertigo presenting with dizziness/lightheadedness. She is somewhat vague in her description but describes feeling unsteady on her feet lightheaded and dizzy and feeling like her vision was ?flickering. Did not have a headache, did not have any new numbness weakness or difficulty with speech no chest pain or shortness of breath. Says she has a history of vertigo in the past but this feels different than that. Onset was approximately 2 hours prior to be seen at 8:45 a.m.. Says that she called a friend and the friend advised her to call the ambulance. Says that she still feels somewhat dizzy. The patient lives alone. Related Data Home Medications Medication Instructions Recorded Confirmed atorvastatin 80 mg tablet 80 mg PO DAILY 06/02/23 03/07/24 carvedilol 6.25 mg tablet 6.25 mg PO BID 06/02/23 03/07/24 magnesium oxide 400 mg (241.3 mg 400 mg PO DAILY 03/07/24 03/07/24 magnesium) tablet Previous Rx's Medication Instructions Recorded losartan 50 mg tablet 50 mg PO BID #180 tabs 06/02/23 Allergies Allergy/AdvReac Type Severity Reaction Status Date / Time oxycodone [OXYCODONE] Allergy Severe ANAPHYLAXIS Verified 03/07/24 09:44 iodine Allergy Mild Rash Verified 03/07/24 09:44 Topical only per pt silver Allergy Mild itchy red Verified 03/07/24 09:44 [From Tegaderm AG Mesh] rash celecoxib [From Celebrex] AdvReac Severe GERD, Verified 03/07/24 09:44 Palpitations alendronate sodium AdvReac Intermediate Jaw cramps Verified 03/07/24 09:44 Patient History Medical History (Updated 05/11/24 @ 12:27 by Jeromy Zacarias MD) Sleep apnea Severe aortic stenosis by prior echocardiogram Encounter for initial annual wellness visit (AWV) 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 associated with 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 Anxiety Overactive bladder Upper airway resistance syndrome Edema extremities Paroxysmal vertigo Hypothyroidism Osteoarthritis Hypoventilation syndrome (2018) Restless legs syndrome Surgical History Status post transcatheter aortic valve replacement (TAVR) using bioprosthesis H/O thymectomy Status post bilateral cataract extraction Hx of left breast biopsy Hx of section History of bunionectomy of right great toe Hx of thymectomy Hx laparoscopic cholecystectomy H/O: hysterectomy History of arthroplasty of right knee History of left knee surgery Family History Mother Cardiac arrhythmia Heart failure Heart disease Social History (Updated 02/23/23 @ 15:02 by Anu Greenwood RN) marital status: details: has one daughter, [place], lives nearby household members: other (lives alone) lives independently: Yes caregiver/support person: No 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 No cerumen impaction Neck Other: Neck is supple Resp Other: Normal respiratory effort Cardio Other: Regular rhythm and rate with frequent premature beats systolic murmur midline thoracotomy scar Neuro Cranial Nerves: CN's II-XI intact bilaterally Cognition: normal cognition Speech: speech normal Motor: strength 5/5 throughout Sensory Exam: no sensory deficits noted Coordination: [id number] test normal Pupils: Normal pupillary reactivity/response: right and left Other: Extraocular movements are intact without nystagmus Course Orders Ordered: ED Orders 05/11/24 09:45 Complete Blood Count AUTO DIFF Stat Comprehensive Metabolic Panel Stat Lipase Stat Magnesium Stat NT-proBNP (BNP-Adult 18+) Stat Troponin & CK Cardiac Panel Stat 05/11/24 09:52 XR chest 1V Stat EKG-12 Lead Stat 05/11/24 10:13 MR head/brain wo con Stat 05/11/24 10:20 PTT Partial Thromboplastin Chu Stat Prothrombin Time INR Stat Vital Signs Vital signs: Vital Signs - 8 hr 05/11/24 09:46 05/11/24 09:46 05/11/24 09:47 Temperature 98.6 F Pulse Rate 66 65 69 Respiratory Rate 16 22 Blood Pressure 172/79 H Pulse Oximetry 98 99 98 Oxygen Delivery Method Room Air 05/11/24 09:47 05/11/24 10:00 05/11/24 10:30 Temperature Pulse Rate 66 64 Respiratory Rate 22 23 Blood Pressure 172/79 H Pulse Oximetry 97 97 Oxygen Delivery Method 05/11/24 10:43 05/11/24 10:43 05/11/24 10:44 Temperature Pulse Rate 67 69 Respiratory Rate 22 20 Blood Pressure 191/128 H Pulse Oximetry 98 96 Oxygen Delivery Method 05/11/24 11:13 05/11/24 11:13 05/11/24 11:30 Temperature Pulse Rate 63 69 Respiratory Rate 29 H Blood Pressure 199/119 H Pulse Oximetry 98 96 Oxygen Delivery Method 05/11/24 12:00 05/11/24 12:17 05/11/24 12:17 Temperature Pulse Rate 68 67 Respiratory Rate 23 22 Blood Pressure 222/89 H Pulse Oximetry 98 98 Oxygen Delivery Method 05/11/24 12:30 05/11/24 12:31 05/11/24 12:31 Temperature Pulse Rate 66 68 Respiratory Rate 15 22 Blood Pressure 178/77 H Pulse Oximetry 99 98 Oxygen Delivery Method MDM - Dizziness Lab Data Lab results narrative: No significant laboratory abnormalities seen. 05/11/24 09:45 05/11/24 09:45 Labs: Lab Results 05/11/24 05/11/24 Range/Units 09:45 10:20 WBC 7.9 (4.5-11.0) X10^3/uL RBC 5.09 (4.0-5.2) X10^6/uL Hgb 14.3 (12.0-16.0) g/dL Hct 42.7 (36-46) % MCV 84.0 (80-100) fL MCH 28.1 (26-34) PG MCHC 33.5 (30-36) % RDW 15.9 H (11.6-14.8) % Plt Count 163 (150-400) X10^3/uL Neut % (Auto) 62.2 (50-75) % Lymph % (Auto) 24.1 L (25-40) % [place] % (Auto) 7.5 (3-14) % Eos % (Auto) 4.9 H (2-4) % Baso % (Auto) 1.3 (0-2) % Neut # (Auto) 4900 (9338-8005) /uL Lymph # (Auto) 1900 (7045-7477) /uL [place] # (Auto) 600 (0-900) /uL Eos # (Auto) 400 (0-450) /uL Baso # (Auto) 100 (0-100) /uL PT 12.4 (9.4-12.5) SECONDS INR 1.1 (0.9-1.3) APTT 34 (25.1-36.5) SECONDS Sodium 135 L (137-145) mmol/L Potassium 4.4 (3.4-5.1) mmol/L Chloride 106 (98-107) mmol/L Carbon Dioxide 21 L (22-32) mmol/L BUN 25 H (7-17) mg/dL Creatinine 0.75 (0.52-1.04) mg/dL Estimated GFR > 60 (>60) mL/min BUN/Creatinine Ratio 33.3 H (6-22) Glucose 107 (80-110) mg/dL Calcium 9.1 (8.4-10.2) mg/dL Magnesium 1.9 (1.6-2.3) mg/dL Total Bilirubin 1.4 H (0.2-1.3) mg/dL AST 42 H (14-36) IU/L ALT 34 (<35) IU/L Alkaline Phosphatase 54 (38-126) U/L Total Creatine Kinase 107 (30-135) U/L Troponin I < 0.012 (0.01-0.034) ng/mL NT-Pro-B Natriuret Pep 49 (<450) pg/mL Total Protein 7.6 (6.3-8.2) g/dL Albumin 4.5 (3.5-5.0) g/dL Globulin 3.1 (1.7-4.1) g/dL Albumin/Globulin Ratio 1.5 (1.0-2.8) Lipase 64 (23-300) U/L Urine Dip Bedside Urine Glucose Negative Bedside Urine Bilirubin - Negative Bedside Urine Ketone - Negative Urine Specific [place] 1.015 Bedside Urine Occult Blood - Negative Bedside Urine pH 6.0 Bedside Urine Protein - Negative Bedside Urine Urobilinogen - Negative Bedside Urine Nitrite - Negative Bedside Urine Leukocytes - Negative Esterase Imaging Data MRI brain: Radiologist's Impression: [facility] [place] [id number] Magnetic Resonance Report Signed Patient: Cierra Perez MR#: [id number] : 1940 Acct:[id number] Age/Sex: 83 / F Date of Service: 05/11/24 Loc: ED Accession Number: [id number] Procedure: MR head/brain wo con Ordering Provider: Jeromy Zacarias MD PROCEDURE: MR HEAD/BRAIN WO CON INDICATIONS: new onset dizziness, stroke suspected TECHNIQUE: Non-contrast axial T1 spin echo, axial T2 fast spin echo, sagittal and axial FLAIR, coronal T2 fast spin echo, axial gradient echo, axial diffusion and ADC through the brain. COMPARISON: None. FINDINGS: Image quality: Excellent. CSF spaces: Ventricles appear symmetric in size and shape. Basal cisterns are patent. No extra-axial fluid collections. Brain: No intracranial bleeds or mass effects. There is cerebral volume loss for age. There are periventricular and deep white matter chronic small vessel ischemic changes. Brainstem appears normal. On diffusion-weighted images, there are a few scattered foci of increased signal seen on the left. However, these do not correspond to associated reduced signal on the ADC map and are seen as T2 bright foci. Therefore, there are attributed to artifact. Normal intravascular flow voids are present. Relatively prominent perivascular spaces are noted. Skull and face: Calvarial bone marrow is normal in signal. Orbits are normal. Note is made of bilateral lens replacements. Sinuses: Sinuses and mastoids are clear. IMPRESSION: No findings of acute or subacute infarction can be seen. Note is made of age-appropriate brain parenchymal volume loss and chronic small vessel ischemic changes. Dictated by: Ghulam Rich M.D. on 05/11/2024 at 10:18 Approved by: Ghulam Rich M.D. on 05/11/2024 at 10:21 Chest x-ray: My Impression: Independent review of chest x-ray no acute findings Radiologist's Impression: No acute disease per Radiology MDM Narrative Medical decision making narrative: 83-year-old female presenting with nonspecific dizziness and lightheadedness. Not associated with any other neurologic symptoms. She has not hypotensive, was hypertensive in the emergency department but had not taken morning medications. Additionally, has some PVCs and ventricular bigeminy, I think it is unlikely that these are causing her symptoms. I considered the possibility of stroke, no stroke was seen on MRI. The patient was able to pass a road test. Discharge Plan Departure Patient Disposition: Home Clinical Impression: Dizziness Hypertension Qualifiers: Hypertension type: primary hypertension Qualified Code(s): I10 - Essential (primary) hypertension Activity Restrictions/Additional Instructions: Emergency department workup today is reassuring. I do not think that your current lightheadedness or dizziness is related to a stroke or other acute medical problem requiring further testing or treatment today. I recommend you continue your previous home medications and be careful in your daily activities. Follow up soon with your primary care provider. If having chest pain shortness of breath severe dizziness or lightheadedness or vomiting recheck in the emergency department Prescriptions: No Action atorvastatin 80 mg tablet 80 mg PO DAILY carvedilol 6.25 mg tablet 6.25 mg PO BID losartan 50 mg tablet 50 mg PO BID Qty: 180 3RF magnesium oxide 400 mg (241.3 mg magnesium) tablet 400 mg PO DAILY Referrals: Jenny Gonzalez DO [Primary Care Provider] - Stand Alone Forms: Patient Portal/API/Survey
[2024-05-11 10:18] LABS: NT-proBNP (BNP-Adult 18+) 49 pg/mL (<450); Troponin I < 0.012 ng/mL (0.01-0.034)
[2024-05-11 10:36] LABS: INR 1.1 (0.9-1.3); Prothrombin Time 12.4 SECONDS (9.4-12.5)
[2024-05-11 10:39] LABS: PTT Partial Thromboplastin Tim 34 SECONDS (25.1-36.5)
--- NOTE | 2024-05-11 10:45 | PC.NURSE ---
Ambulation Assessment - Patient states that her dizziness has resolved from earlier, but is now complaining of pressure behind both of her eyes as well as nausea
== END 2024-05-11 12:54 | disposition home or self-care (01) ==
PROVIDERS: Emergency Provider Emergency Medicine; PCP Family Medicine
DX: I10 Essential (primary) hypertension (principal); R42 Dizziness and giddiness; I49.3 Ventricular premature depolarization; R00.8 Other abnormalities of heart beat; Z95.2 Presence of prosthetic heart valve; Z86.79 Personal history of other diseases of the circulatory system
CPT/HCPCS: 36415; 70551; 71045; 80053; 81003; 82550; 83690; 83735; 83880; 84484; 85025; 85610; 85730; 93005; 99283; 99284

== ENCOUNTER → 2024-06-30 09:05 | Outpatient (CLI) | payer MEDICARE, OTHER, SELFPAY ==
[2018-07-19 18:56] VITALS: BMI 38.7
[2024-06-30 10:27] LABS: BUN Creatinine Ratio 47.9 (6-22); Blood Urea Nitrogen 35 mg/dL (7-17); Calcium 9.5 mg/dL (8.4-10.2); Carbon Dioxide 30 mmol/L (22-32); Chloride 101 mmol/L (98-107); Estimated Glomerular Filt Rate > 60 mL/min (>60); Glucose 91 mg/dL (80-110); HEMOLYSIS < 15 (0-50); Potassium 4.2 mmol/L (3.4-5.1); Sodium 139 mmol/L (137-145)
== END ==
PROVIDERS: PCP Family Medicine; Referring Provider Family Medicine; Visit Provider Family Medicine
DX: I10 Essential (primary) hypertension (principal); E87.1 Hypo-osmolality and hyponatremia; R68.2 Dry mouth, unspecified
CPT/HCPCS: 36415; 80048

== ENCOUNTER → 2024-10-20 10:52 | Outpatient (CLI) | payer MEDICARE, OTHER, SELFPAY ==
[2018-07-19 18:56] VITALS: BMI 38.7
== END ==
PROVIDERS: PCP Family Medicine; Referring Provider Physician Assistant; Visit Provider Physician Assistant
DX: R93.1 Abnormal findings on diagnostic imaging of heart and coronary circulation (principal)
CPT/HCPCS: 36415; 84155; 84156; 84165; 84166

== ENCOUNTER → 2025-01-16 14:24 | Outpatient (CLI) | payer MEDICARE, OTHER, SELFPAY ==
[2018-07-19 18:56] VITALS: BMI 38.7
[2025-01-16 15:44] LABS: Blood Urea Nitrogen 19 mg/dL (7-17); Calcium 9.3 mg/dL (8.4-10.2); Carbon Dioxide 28 mmol/L (22-32); Chloride 102 mmol/L (98-107); Estimated Glomerular Filt Rate > 60 mL/min (>60); Glucose 101 mg/dL (70-99); HEMOLYSIS < 15 (0-50); Hemoglobin A1C% w Est Avg Glu 6.4 % (4.0-6.0); Potassium 4.6 mmol/L (3.4-5.1); Sodium 137 mmol/L (137-145)
== END ==
PROVIDERS: PCP Family Medicine; Referring Provider Family Medicine; Visit Provider Family Medicine
DX: R73.01 Impaired fasting glucose (principal); I50.32 Chronic diastolic (congestive) heart failure; Z95.3 Presence of xenogenic heart valve
CPT/HCPCS: 36415; 80048; 83036